=== PATIENT | female | born 1985 | race Two or more races ===

== ENCOUNTER 2020-08-02 14:31 | Inpatient (IN) | payer OTHER, SELFPAY ==
[2020-08-02 15:06] VITALS: BP 130/67; PULSE 103; RESP 18; TEMP 37.8; O2SAT 97
[2020-08-02 15:12] VITALS: BP 130/67; TEMP 37.8; BMI 28.0
--- NOTE | 2020-08-02 15:23 | CT_ITS ---
EXAMINATION: CT ABDOMEN AND PELVIS WITH CONTRAST CLINICAL INFORMATION: 34-year-old female patient with right lower quadrant abdominal pain. COMPARISON: CT of the abdomen and pelvis on 06/02/2020. ( uterus. Moderate constipation). Ultrasound the pelvis on 06/02/2020. (Normal ovaries). TECHNIQUE: Multidetector volumetric images were obtained from the superior aspect of the liver through the pubic symphysis following administration 85 mL of Omnipaque 350 intravenous contrast. Sagittal and coronal reformatted images were obtained on the technologist's workstation. Oral contrast: No This CT examination was performed using dose optimization techniques as appropriate, variously including the following: *Automated exposure control *Adjustment of mA and/or kV according to patient size (this includes techniques or standardized protocols for targeted exams where dose is matched to indication/reason for exam; i.e. 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 No obstruction is suspected. LUNG BASES: Mild dependent atelectasis of both lower lobes. LIVER, GALLBLADDER, AND BILIARY TREE: The liver is normal in size, shape, and attenuation. No focal hepatic lesion or biliary ductal dilatation is present. Mild periportal tracking is seen in the liver due to the hydration status of the patient. The common bile duct is normal in caliber. The gallbladder is unremarkable with no evidence of radiopaque gallstones, gallbladder wall thickening, or obvious pericholecystic inflammatory changes. PANCREAS: Unremarkable. SPLEEN: Unremarkable. ADRENAL GLANDS: Unremarkable. KIDNEYS AND URETERS: The kidneys are normal in size, shape, and attenuation. No hydronephrosis, hydroureter, or calculi seen. No perinephric stranding. BLADDER: Nearly empty and normal. GASTROINTESTINAL TRACT: The small and large bowel are unremarkable. As mentioned above, there is increased burden of formed stool throughout the colon. The appendix is unremarkable. ABDOMINAL WALL: No significant hernia is appreciated. LYMPH NODES: Small perinephric and mesenteric lymph nodes are present. VASCULAR: Unremarkable. PELVIC VISCERA: There is still residual mild global enlargement of the uterus which retained is normal shape. There is a significant change in the appearance of the adnexal regions. Both adnexa show the presence of abnormally dilated fluid-filled fallopian tubes larger on the right than left. This appearance is consistent with hydrosalpinx. On the left side, pyosalpinx is a possibility due to the suggestion of surrounding inflammatory reaction. Minimal fluid tracking is seen along the lower left pelvic sidewall. OSSEOUS STRUCTURES: Unremarkable. CT/CT abdomen pelvis w con IMPRESSION: Bilateral hydrosalpinx worse on the left than right. Pyosalpinx on the left is not excluded. Increased burden of formed stool throughout the colon.
[2020-08-02 15:44] LABS: Glucose Urine UA NEG (NEG); Leukocyte Esterase Urine NEG (NEG); Nitrite Urine NEG (NEG); Urine Blood NEG (NEG); Urine Ketones 40 MG/DL (NEG); Urine Protein NEG (NEG-TRACE)
[2020-08-02 15:50] LABS: Appearance Urine CLEAR; Color Urine YELLOW
[2020-08-02 15:52] LABS: UPreg QC Valid YES; Urine Pregnancy NEGATIVE (NEGATIVE)
[2020-08-02 15:57] LABS: Mucus Urine TRACE /LPF; RBC Urine 0-2 /HPF (0); Squamous Epithelial Cell Urine TRACE /LPF; WBC Urine 0 /HPF (0-4)
[2020-08-02 16:04] LABS: Amphetamine Screen Urine Not Detected (Not Detect); Barbiturates, Urine Not Detected (Not Detect); Benzodiazepines Screen Urine Not Detected (Not Detect); Cannabinoid Screen Urine POSITIVE (Not Detect); Cocaine Screen Urine POSITIVE (Not Detect); Opiate Screen Urine POSITIVE (Not Detect); Phencyclidine Screen Urine Not Detected (Not Detect)
--- NOTE | 2020-08-02 16:15 | PC.NURSE ---
iv inserted by ultrasound by [facility] computer support analyst. labs obtained. da mc aware.
--- NOTE | 2020-08-02 16:16 | ED.ABDPAIN ---
HPI - Abdominal Pain General Chief Complaint: Abdominal Pain Stated Complaint: ABD PAIN Time Seen by Provider: 08/02/20 15:21 Source: patient Mode of arrival: ambulatory Limitations: no limitations History of Present Illness HPI narrative: This is a 34-year-old female with past medical history of IV drug use, depression who is a daily smoker states she last used IV drugs preferred heroin a week ago still smokes daily presenting ambulatory with complaint of right lower quadrant pain for the past 4 days. She denies any other symptoms. No nausea or vomiting. No symptoms. Pain has been described as gradually but progressively getting worse and sharp like. Pain does not radiate. In review of the EMR on June 05 patient was admitted for abdominal pain with sepsis and infection due to gonorrhea. She denies any symptoms to me. MD elicited complaint: abdominal pain Pertinent past history: none Onset (ago): day(s) Pain Consistency: constant Location: RLQ Quality: stabbing and aching Radiation: none Migration to: no migration Exacerbating factors: nothing Relieving factors: nothing Related Data Home Medications Medication Instructions Recorded Confirmed No Known Home Meds 08/02/20 08/02/20 Allergies Allergy/AdvReac Type Severity Reaction Status Date / Time trazodone [TRAZODONE] AdvReac Severe FACE Verified 08/02/20 15:28 SWELLING, VOMITING Review of Systems Review of Systems Constitutional: No Weight loss, No Fever, + Chills, No Night Sweats, No Fatigue, No Malaise ENT/Mouth: No Hearing loss, No Ear Pain, No Nasal Congestion, No Sinus Pain, No Hoarseness, No sore throat, No Rhinorrhea, No Swallowing Difficulty Eyes: No Eye Pain, No Swelling, No Redness, No Foreign Body, No Discharge, No Vision Changes Cardiovascular: No Chest Pain, No SOB, No Dyspnea on Exertion, No Orthopnea, No Edema, No Palpitations Respiratory: No Cough, No Sputum, No Wheezing, No Smoke Exposure, No Dyspnea Gastrointestinal: No Nausea, No Vomiting, No Diarrhea, No Constipation, + abdominal Pain, No Hematochezia, No Melena Genitourinary: no irregular bleeding, No Dysuria, No Urinary Frequency, No Hematuria, No Urinary Incontinence, No Urgency, No Flank Pain, No Urinary Flow Musculoskeletal: No joint pain, No Myalgias, No Joint Swelling Skin: No Skin Lesions, No rash Neuro: No Weakness, No Numbness, No Paresthesias, No Loss of Consciousness, No Dizziness, No Headache Psych: No Anxiety/Panic, No Depression, No SI/HI/AH/VH, No Social Issues Heme/Lymph: No Bruising, No Bleeding,No Lymphadenopathy Endocrine: No Polyuria, No Polydipsia, No Temperature Intolerance Yes all other systems are reviewed and are negative Physical Exam Vital Signs: Vital Signs: Last Vital Signs Temp 98.5 F 08/02/20 19:32 Pulse 73 08/02/20 19:32 Resp 18 08/02/20 19:32 BP 128/81 08/02/20 19:32 Pulse Ox 99 08/02/20 19:32 Body Mass Index 28.0 Reviewed Const: Other: Appears in pain General: cooperative and ill appearing Nutritional Appearance: average body habitus Orientation/consciousness: patient oriented x3 HENMT: Head: Yes normal to inspection Ears: hearing grossly normal bilaterally Eyes: General: appearance normal, both eyes and all related structures Visual Galarza: normal visual galarza by confrontation Neck: Neck: Yes normal visual inspection and No tender Thyroid: Thyroid normal Chest: Chest palpation & inspection: normal inspection of the chest Resp: Effort & Inspection: normal respiratory effort Cardio: Jugular venous distension: no JVD GI: Inspection: Yes normal to inspection Percussion: Yes normal to percussion Auscultation: normal bowel sounds : Other: RN Andrew present for production engineer track General: Yes no CVA tenderness External Female Exam: normal external appearance Speculum Exam - Cervix: Cervical tenderness present (Positive cervical motion tenderness.) Bimanual exam- vagina & uterus: Cervical tenderness present (Positive cervical motion tenderness.) Back/Spine/Pelvis: Back: no CVA tenderness Skin: General skin exam: no rashes or lesions noted Neuro: General: patient oriented x3 Extrem: General: Yes normal to inspection Course Reevaluation(s) Reevaluation #1: Very difficult stick to RNs tried without success I placed a ultrasound-guided IV in the right AC and labs were obtained. Patient is given fluids and Tylenol. Going for CT scan. Given the abdominal pain and the fever will go ahead and empirically cover for intra-abdominal pathology. Reevaluation #2: Meets sepsis criteria with elevated heart rate now, elevated WBC count and suspected infection. Patient does not have any evidence of severe sepsis. Given Zosyn already. CT is pending. Reevaluation #3: CT of the abdomen pelvis with IV contrast shows Bilateral hydrosalpinx worse on the left than right. Pyosalpinx on the left is not excluded. Case discussed with Dr. Elizabeth ROSENTHAL on-call, will come in to evaluate the patient and admit to service. Consultations Consultation #1: GALO Johnson MDM - Abdominal Pain Lab Data Result diagrams: 08/02/20 16:22 08/02/20 16:22 Labs: Lab Results 08/02/20 08/02/20 08/02/20 Range/Units 15:36 15:36 16:22 WBC 19.6 H (4.8-10.8) X10*3/uL RBC 4.97 (4.20-5.50) X10*6/uL Hgb 14.7 (12.0-16.0) g/dl Hct 45.1 (37-47) % MCV 90.7 (80-98) fL MCH 29.6 (27.0-33.0) pg MCHC 32.6 (31.0-35.0) g/dl RDW 15.0 (11.0-16.0) % Plt Count 418 H (160-400) X10*3/uL MPV 9.9 (9.4-12.3) fL Immature Gran % (Auto) 1.1 H (0.0-0.4) % Neut % (Auto) 84.0 H (45-73) % Lymph % (Auto) 8.5 L (20-40) % Hand % (Auto) 5.1 (2-11) % Eos % (Auto) 1.1 (0-4) % Baso % (Auto) 0.2 (0-2) % Lymph # (Auto) 1.7 (1.2-4.9) X10*3/uL Hand # (Auto) 1.0 (0.1-1.2) X10*3/uL Eos # (Auto) 0.2 (0.0-0.4) X10*3/uL Baso # (Auto) 0.0 (0.0-0.2) X10*3/uL Abs Immat Gran (auto) 0.22 H (0.00-0.03) X10*3/uL Absolute Neuts (auto) 16.4 H (2.0-8.3) X10*3/uL Absolute Nucleated RBC 0.000 (0.0-0.012) X10*3/uL Nucleated RBC % (auto) 0.0 (0.0-0.2) /100WBC Sodium (135-145) mmol/L Potassium (3.3-5.1) mmol/l Chloride (96-108) mmol/L Carbon Dioxide (22-29) mmol/L Anion Gap (12-20) BUN (9-16) mg/dL Creatinine (0.5-1.4) mg/dL Estim Creat Clear Calc Estimated GFR Random Glucose (60-115) mg/dL Lactic Acid (0.5-2.0) mmol/L Calcium (8.4-10.2) mg/dL Total Bilirubin (0.0-1.0) mg/dL AST (5-31) U/L ALT (0-31) U/L Alkaline Phosphatase (39-117) U/L Total Protein (6.5-8.0) g/dL Albumin (3.5-5.0) g/dL Urine Color YELLOW Urine Appearance CLEAR Urine pH 8.0 (5.0-8.0) Ur Specific [place] 1.020 (1.005-1.025) Urine Protein NEG (NEG-TRACE) MG/DL Urine Glucose (UA) NEG (NEG) MG/DL Urine Ketones 40 (NEG) MG/DL Urine Blood NEG (NEG) Urine Nitrite NEG (NEG) Ur Leukocyte Esterase NEG (NEG) Urine RBC 0-2 (0) /HPF Urine WBC 0 (0-4) /HPF Ur Squamous Epith Cells TRACE /LPF Urine Bacteria NONE /LPF Urine Mucus TRACE /LPF Urine Test NEGATIVE (NEGATIVE) Urine Opiates Screen POSITIVE H (Not Detect) Ur Barbiturates Screen Not Detected (Not Detect) Ur Phencyclidine Scrn Not Detected (Not Detect) Ur Amphetamines Screen Not Detected (Not Detect) U Benzodiazepines Scrn Not Detected (Not Detect) Urine Cocaine Screen POSITIVE H (Not Detect) U Marijuana (THC) Screen POSITIVE H (Not Detect) Coronavirus (PCR) (Negative) Influenza Type A (PCR) (Negative) Influenza Type B (PCR) (Negative) RSV RNA Qual (PCR) (Negative) 11/08/02/20 08/02/20 Range/Units 16:22 16:52 17:48 WBC (4.8-10.8) X10*3/uL RBC (4.20-5.50) X10*6/uL Hgb (12.0-16.0) g/dl Hct (37-47) % MCV (80-98) fL MCH (27.0-33.0) pg MCHC (31.0-35.0) g/dl RDW (11.0-16.0) % Plt Count (160-400) X10*3/uL MPV (9.4-12.3) fL Immature Gran % (Auto) (0.0-0.4) % Neut % (Auto) (45-73) % Lymph % (Auto) (20-40) % Hand % (Auto) (2-11) % Eos % (Auto) (0-4) % Baso % (Auto) (0-2) % Lymph # (Auto) (1.2-4.9) X10*3/uL Hand # (Auto) (0.1-1.2) X10*3/uL Eos # (Auto) (0.0-0.4) X10*3/uL Baso # (Auto) (0.0-0.2) X10*3/uL Abs Immat Gran (auto) (0.00-0.03) X10*3/uL Absolute Neuts (auto) (2.0-8.3) X10*3/uL Absolute Nucleated RBC (0.0-0.012) X10*3/uL Nucleated RBC % (auto) (0.0-0.2) /100WBC Sodium 136 (135-145) mmol/L Potassium 4.7 (3.3-5.1) mmol/l Chloride 102 (96-108) mmol/L Carbon Dioxide 21 L (22-29) mmol/L Anion Gap 18 (12-20) BUN 7 L (9-16) mg/dL Creatinine 0.69 (0.5-1.4) mg/dL Estim Creat Clear Calc 98.6 Estimated GFR > 60 Random Glucose 74 (60-115) mg/dL Lactic Acid 0.8 (0.5-2.0) mmol/L Calcium 8.7 (8.4-10.2) mg/dL Total Bilirubin 0.6 (0.0-1.0) mg/dL AST 36 H (5-31) U/L ALT 44 H (0-31) U/L Alkaline Phosphatase 146 H (39-117) U/L Total Protein 8.1 H (6.5-8.0) g/dL Albumin 3.7 (3.5-5.0) g/dL Urine Color Urine Appearance Urine pH (5.0-8.0) Ur Specific [place] (1.005-1.025) Urine Protein (NEG-TRACE) MG/DL Urine Glucose (UA) (NEG) MG/DL Urine Ketones (NEG) MG/DL Urine Blood (NEG) Urine Nitrite (NEG) Ur Leukocyte Esterase (NEG) Urine RBC (0) /HPF Urine WBC (0-4) /HPF Ur Squamous Epith Cells /LPF Urine Bacteria /LPF Urine Mucus /LPF Urine Test (NEGATIVE) Urine Opiates Screen (Not Detect) Ur Barbiturates Screen (Not Detect) Ur Phencyclidine Scrn (Not Detect) Ur Amphetamines Screen (Not Detect) U Benzodiazepines Scrn (Not Detect) Urine Cocaine Screen (Not Detect) U Marijuana (THC) Screen (Not Detect) Coronavirus (PCR) NEGATIVE (Negative) Influenza Type A (PCR) NEGATIVE (Negative) Influenza Type B (PCR) NEGATIVE (Negative) RSV RNA Qual (PCR) NEGATIVE (Negative) Imaging Data CT scan - abdomen: Radiologist's impression: [place] [id number] CT Scan Report Signed Patient: Fidel Gómez [facility]#: [id number] : 1985Acct:[id number] Age/Sex: 34 / FADM Date: 08/02/20 Loc: HO.ED Attending Dr: Ordering Physician: Joss Link NP Date of Service: 08/02/20 Procedure(s): CT abdomen pelvis w con Accession Number(s): [id number] cc: Joss Link PANTOGRAPH TRANSFERRER~ EXAMINATION: CT ABDOMEN AND PELVIS WITH CONTRAST CLINICAL INFORMATION: 34-year-old female patient with right lower quadrant abdominal pain. COMPARISON: CT of the abdomen and pelvis on 06/02/2020. ( uterus. Moderate constipation). Ultrasound the pelvis on 06/02/2020. (Normal ovaries). TECHNIQUE: Multidetector volumetric images were obtained from the superior aspect of the liver through the pubic symphysis following administration 85 mL of Omnipaque 350 intravenous contrast. Sagittal and coronal reformatted images were obtained on the technologist's workstation. Oral contrast: No This CT examination was performed using dose optimization techniques as appropriate, variously including the following: *Automated exposure control *Adjustment of mA and/or kV according to patient size (this includes techniques or standardized protocols for targeted exams where dose is matched to indication/reason for exam; i.e. 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 No obstruction is suspected. LUNG BASES: Mild dependent atelectasis of both lower lobes. LIVER, GALLBLADDER, AND BILIARY TREE: The liver is normal in size, shape, and attenuation. No focal hepatic lesion or biliary ductal dilatation is present. Mild periportal tracking is seen in the liver due to the hydration status of the patient. The common bile duct is normal in caliber. The gallbladder is unremarkable with no evidence of radiopaque gallstones, gallbladder wall thickening, or obvious pericholecystic inflammatory changes. PANCREAS: Unremarkable. SPLEEN: Unremarkable. ADRENAL GLANDS: Unremarkable. KIDNEYS AND URETERS: The kidneys are normal in size, shape, and attenuation. No hydronephrosis, hydroureter, or calculi seen. No perinephric stranding. BLADDER: Nearly empty and normal. GASTROINTESTINAL TRACT: The small and large bowel are unremarkable. As mentioned above, there is increased burden of formed stool throughout the colon. The appendix is unremarkable. ABDOMINAL WALL: No significant hernia is appreciated. LYMPH NODES: Small perinephric and mesenteric lymph nodes are present. VASCULAR: Unremarkable. PELVIC VISCERA: There is still residual mild global enlargement of the uterus which retained is normal shape. There is a significant change in the appearance of the adnexal regions. Both adnexa show the presence of abnormally dilated fluid-filled fallopian tubes larger on the right than left. This appearance is consistent with hydrosalpinx. On the left side, pyosalpinx is a possibility due to the suggestion of surrounding inflammatory reaction. Minimal fluid tracking is seen along the lower left pelvic sidewall. OSSEOUS STRUCTURES: Unremarkable. CT/CT abdomen pelvis w con IMPRESSION: Bilateral hydrosalpinx worse on the left than right. Pyosalpinx on the left is not excluded. Increased burden of formed stool throughout the colon. Dictated By:JANNY KAUR MD Signed By:<Electronically signed by JANNY KAUR MD in OV>08/02/20 1814 DD/ 1523 TD/TT: Hand Cell Tuber: Discharge Plan Discharge Clinical Impression: Pelvic inflammatory disease, acute, Tubo-ovarian abscess Patient Disposition: Admitted As Inpatient Prescriptions: No Action No Known Home Meds RF: 0 PMFSH Past Medical History Medical History Depression Drug abuse IV drug user Surgical History History of Social History Social History Alcohol intake: never Smoking Status: Current every day smoker Use of substances other than those prescribed or required for medical reasons: Yes Substance Use Type: Marijuana Substance Use Frequency: Occasionally Last Used Substance: Days (ago) Any prior treatment program specific to substance use: No Advance Directives: No Advance Directives Information Provided: Yes
[2020-08-02] MEDS: Acetaminophen 325 MG TABLET 975 MG PO (16:25)
[2020-08-02] MEDS: 0.9 % Sodium Chloride 1,000 ML 1000 ML IV (16:26)
[2020-08-02 16:27] LABS: MANUAL DIFF FLAG NO
[2020-08-02 16:28] LABS: Basophils Percent Auto 0.2 % (0-2); Eosinophils Absolute Auto 0.2 X10*3/uL (0.0-0.4); Eosinophils Percent Auto 1.1 % (0-4); Hematocrit 45.1 % (37-47); Hemoglobin 14.7 g/dl (12.0-16.0); Imm Gran Abs Auto 0.22 X10*3/uL (0.00-0.03); Imm Gran Pct Auto 1.1 % (0.0-0.4); Lymphocytes Absolute Auto 1.7 X10*3/uL (1.2-4.9); Lymphocytes Percent Auto 8.5 % (20-40); Mean Corpuscular HGB Conc 32.6 g/dl (31.0-35.0); Mean Corpuscular Hemoglobin 29.6 pg (27.0-33.0); Mean Corpuscular Volume 90.7 fL (80-98); Mean Platelet Volume 9.9 fL (9.4-12.3); Monocytes Percent Auto 5.1 % (2-11); Neutrophils Absolute Auto 16.4 X10*3/uL (2.0-8.3); Platelet Count 418 X10*3/uL (160-400); Red Blood Count 4.97 X10*6/uL (4.20-5.50); White Blood Count 19.6 X10*3/uL (4.8-10.8)
--- NOTE | 2020-08-02 16:39 | XR_ITS ---
EXAMINATION: XR chest 1V CLINICAL INFORMATION: Fever COMPARISON: Prior chest x-ray 06/03/2020 TECHNIQUE: XR chest 1V Tubes and lines: None Lungs and Yuliana: Prior infiltrate atelectasis at right lung base clear. Pleura: Normal. Costophrenic angles are sharp. No pneumothorax. Heart and mediastinum: The mediastinum is within normal limits.. Bones: Skeletal structures included are normal for patient's age. XR/XR chest 1V IMPRESSION: Prior infiltrate/atelectasis at right lung base seen on the x-ray of 06/03/2020, has cleared. No pleural effusion.
[2020-08-02 16:58] LABS: Alanine Aminotransferase 44 U/L (0-31); Albumin Level 3.7 g/dL (3.5-5.0); Alkaline Phosphatase 146 U/L (39-117); Anion Gap 18 (12-20); Aspartate Amino Transferase 36 U/L (5-31); Bilirubin Total 0.6 mg/dL (0.0-1.0); Blood Urea Nitrogen 7 mg/dL (9-16); Calcium 8.7 mg/dL (8.4-10.2); Carbon Dioxide 21 mmol/L (22-29); Chloride 102 mmol/L (96-108); Creatinine Clr Calc Pharmacy 98.6; Estimated Glomerular Filt Rate > 60; Glucose Random 74 mg/dL (60-115); Potassium 4.7 mmol/l (3.3-5.1); Sodium 136 mmol/L (135-145); Total Protein 8.1 g/dL (6.5-8.0)
[2020-08-02 17:17] LABS: Lactic Acid 0.8 mmol/L (0.5-2.0)
[2020-08-02] MEDS: iohexoL 350 MG/ML 100 ML INFUS..BTL IV (17:30)
[2020-08-02] MEDS: Piperacillin Sodium/Tazobactam 4.5 GM in 0.9 % Sodium Chloride 100 ML IV (17:38)
[2020-08-02 18:35] LABS: Influenza A PCR NEGATIVE (Negative); Influenza B PCR NEGATIVE (Negative); Resp Syncy Virus RNA Qual PCR NEGATIVE (Negative); SARS COV2 PCR INHOUSE NEGATIVE (Negative)
[2020-08-02] MEDS: metroNIDAZOLE/NS 500 MG/100 ML PIGGYBACK 100 MG IV (19:29)
[2020-08-02 19:32] VITALS: BP 128/81; PULSE 73; RESP 18; TEMP 36.9; O2SAT 99
--- NOTE | 2020-08-02 19:33 | PC.NURSE ---
pt medicated per order, vss, pt currently watching tv, will continue to monitor.
--- NOTE | 2020-08-02 19:45 | PC.NURSE ---
patient a&ox3, iv antibiotics running per order, pt requesting food, pt currently watching tv, will ask provider if patient can eat now, vss, will continue to monitor.
--- NOTE | 2020-08-02 20:19 | PM.GYNCN ---
SENIOR PROJECT MANAGER ENGINEERING - CN: HPI Data of Consult Consult date: 08/02/20 Primary Care Provider: Ozzy Ellison MD Consult Narrative Narrative: Fidel Gómez is a 34 year old female with four day history of RLQ pain. She reports that the pain was initially tolerable, but over the last four days, increased in intensity until she it was so bad she felt like she could not walk. She reports that when she is lying down, the pain is discomfort; however, when she is walking, she report sharp pains in the RLQ. The pain is better with lying down and worst with walking. She has been drinking advil for the pain but denies getting any relief. She reports the onset of fevers after the second day of pain. On the second or third day, she also started to notice a brown vaginal discharge. She denies any associated odor. She denies having had any nausea or vomiting; she reports she has not had much of an appetite. She reports the pain is sometimes strong enough to take her breath away; otherwise, she denies any shortness of breath or difficulty breathing. She is sexually active with one male partner and reports consistent condom use every time. cc:: CC: Meds Allergies Allergy/AdvReac Type Severity Reaction Status Date / Time trazodone [TRAZODONE] AdvReac Severe FACE Verified 08/02/20 15:28 SWELLING, VOMITING Home Medications Medication Instructions Recorded Confirmed Type No Known Home Meds 08/02/20 08/02/20 History SENIOR PROJECT MANAGER ENGINEERING - Results Labs CBC & Chem 7: 08/02/20 16:22 08/02/20 16:22 Labs: Short CBC 08/02/20 Range/Units 16:22 WBC 19.6 H (4.8-10.8) X10*3/uL Hgb 14.7 (12.0-16.0) g/dl Hct 45.1 (37-47) % Plt Count 418 H (160-400) X10*3/uL BMP 08/02/20 16:22 Sodium 136 Potassium 4.7 Chloride 102 Carbon Dioxide 21 L BUN 7 L Creatinine 0.69 Calcium 8.7 Liver Function 08/02/20 Range/Units 16:22 Total Bilirubin 0.6 (0.0-1.0) mg/dL AST 36 H (5-31) U/L ALT 44 H (0-31) U/L Alkaline Phosphatase 146 H (39-117) U/L Albumin 3.7 (3.5-5.0) g/dL Urine 08/02/20 Range/Units 15:36 Urine Color YELLOW Urine Appearance CLEAR Urine pH 8.0 (5.0-8.0) Ur Specific [place] 1.020 (1.005-1.025) Urine Protein NEG (NEG-TRACE) MG/DL Urine Glucose (UA) NEG (NEG) MG/DL Urine Test NEGATIVE (NEGATIVE) Assessment and Plan (1) Pelvic inflammatory disease, acute: Status: Acute Abdominal CT scan demonstrates bilateral hydrosalpinx, R > L, consistent with her pain. Most recent pelvic US from 06/02/20 did not demonstrate any adnexal abnormalities; the change in imaging, her fever on admission, and CMT on bimanual exam by QA AUTOMATION DEVELOPER Joss Link are consistent with acute PID complicated by tubo-ovarian abscess. Recommended treatment for this is hospital admission for at least 24hrs of IV antibiotics. IV Cefotetan 2G IV Q12H and IV doxycycline 100mg IV Q12H. I discussed with the patient that she will be NPO until I see that her pain and blood work are improved, with plan to advance to regular diet in the morning if her pain is improved. If no improvement or worsening of symptoms, will consider IR consult for possible drainage. I will likely order pelvic US tomorrow; future imaging for follow up will be with US so this will be a better comparison. (2) Tubo-ovarian abscess: Status: Acute See above
--- NOTE | 2020-08-02 21:17 | PC.NURSE ---
[facility] does not have the cefotan, pharmacy will bring to ed.
[2020-08-02 21:50] VITALS: BP 121/82; PULSE 89; RESP 18; TEMP 37.2; O2SAT 98
[2020-08-02] MEDS: Lactated Ringers 1,000 ML 125 ML IVCONT (21:57)
--- NOTE | 2020-08-02 21:58 | PC.NURSE ---
patient a&ox3, pt ivf running per order, iv antibiotic hung per order, will continue to monitor.
--- NOTE | 2020-08-02 22:23 | PC.NURSE ---
pt refusing ct ng by pcr, pt stated she would do it later that she was not doing it now.
--- NOTE | 2020-08-02 22:25 | PC.NURSE ---
called floor to give report-no answer at this time
--- NOTE | 2020-08-02 22:41 | PC.NURSE ---
report called to floor, will hang last iv antibiotic and have tech transport patient. floor nurse aware that ct ng pcr was refused by patient- will send swab to the floor with the patient
[2020-08-02] MEDS: Doxycycline Hyclate 100 MG in 0.9 % Sodium Chloride 250 ML 166.67 MG IV (22:45)
--- NOTE | 2020-08-02 22:48 | PC.NURSE ---
iv antibiotics hung per order
[2020-08-03] MEDS: Acetaminophen 325 MG TABLET 650 MG PO ×2 (00:16→11:28)
[2020-08-03] MEDS: oxyCODONE HCl Immed Release 5 MG TABLET PO ×2 (00:17→07:51)
[2020-08-03 00:18] VITALS: BP 127/78; PULSE 84; RESP 18; TEMP 36.7; O2SAT 97
[2020-08-03 03:04] VITALS: BP 131/68; PULSE 81; RESP 18; TEMP 36.5; O2SAT 98
[2020-08-03] MEDS: Lactated Ringers 1,000 ML 125 ML IVCONT (05:36)
[2020-08-03] MEDS: Doxycycline Hyclate 100 MG in 0.9 % Sodium Chloride 250 ML 166.67 MG IV (07:45)
[2020-08-03 08:00] VITALS: BP 109/57; PULSE 73; RESP 17; TEMP 36.9; O2SAT 99
--- NOTE | 2020-08-03 08:39 | P.PNOB_ITS ---
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 Gómez's room this morning, she appeared to be sleeping comfortably and did not respond to my calling her name multiple times until I reached out and gentle shook her arm while calling her name. Her d emeanor immediately changed as she woke up; she began moaning and appeared to be in significant pain. She told me that her pain was unchanged this morning. Compared to when I saw her in the ER yesterday evening, she told me after being brought upstairs, her pain started getting worse again. Her pain is consistent this morning with her pain that brought her into the ER (although she previously told me that when lying down, her pain was only uncomfortable. She reports nausea but denies vomiting. She states that she has no appetite. 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 Vitals Vital signs: Temp Pulse Resp BP Pulse Ox 98.5 F 73 17 109/57 L 99 08/03/20 08:00 08/03/20 08:00 08/03/20 08:00 08/03/20 08:00 08/03/20 08:00 Body Mass Index 28.0 Constitutional General Appearance: Overweight Abdomen Auscultation/Inspection/Palpation: Soft and Tenderness (tenderness in the right upper quadrant, and in the lower quadrants bilaterally and suprapubic area ) POWER PLANT ASSISTANT - Prog Note: Results Labs CBC & Chem 7: 08/02/20 16:22 08/02/20 16:22 Labs: Laboratory Results - last 24 hr 08/02/20 08/02/20 08/02/20 15:36 15:36 16:22 WBC 19.6 H RBC 4.97 Hgb 14.7 Hct 45.1 MCV 90.7 MCH 29.6 MCHC 32.6 RDW 15.0 Plt Count 418 H MPV 9.9 Immature Gran % (Auto) 1.1 H Neut % (Auto) 84.0 H Lymph % (Auto) 8.5 L [place] % (Auto) 5.1 Eos % (Auto) 1.1 Baso % (Auto) 0.2 Lymph # (Auto) 1.7 [place] # (Auto) 1.0 Eos # (Auto) 0.2 Baso # (Auto) 0.0 Abs Immat Gran (auto) 0.22 H Absolute Neuts (auto) 16.4 H Absolute Nucleated RBC 0.000 Nucleated RBC % (auto) 0.0 Sodium Potassium Chloride Carbon Dioxide Anion Gap BUN Creatinine Estim Creat Clear Calc Estimated GFR Random Glucose Lactic Acid Calcium Total Bilirubin AST ALT Alkaline Phosphatase Total Protein Albumin Urine Color YELLOW Urine Appearance CLEAR Urine pH 8.0 Ur Specific [place] 1.020 Urine Protein NEG Urine Glucose (UA) NEG Urine Ketones 40 Urine Blood NEG Urine Nitrite NEG Ur Leukocyte Esterase NEG Urine RBC 0-2 Urine WBC 0 Ur Squamous Epith Cells TRACE Urine Bacteria NONE Urine Mucus TRACE Urine Test NEGATIVE Urine Opiates Screen POSITIVE H Ur Barbiturates Screen Not Detected Ur Phencyclidine Scrn Not Detected Ur Amphetamines Screen Not Detected U Benzodiazepines Scrn Not Detected Urine Cocaine Screen POSITIVE H U Marijuana (THC) Screen POSITIVE H Coronavirus (PCR) Influenza Type A (PCR) Influenza Type B (PCR) RSV RNA Qual (PCR) 08/02/20 08/02/20 08/02/20 16:22 16:52 17:48 WBC RBC Hgb Hct MCV MCH MCHC RDW Plt Count MPV Immature Gran % (Auto) Neut % (Auto) Lymph % (Auto) [place] % (Auto) Eos % (Auto) Baso % (Auto) Lymph # (Auto) [place] # (Auto) Eos # (Auto) Baso # (Auto) Abs Immat Gran (auto) Absolute Neuts (auto) Absolute Nucleated RBC Nucleated RBC % (auto) Sodium 136 Potassium 4.7 Chloride 102 Carbon Dioxide 21 L Anion Gap 18 BUN 7 L Creatinine 0.69 Estim Creat Clear Calc 98.6 Estimated GFR > 60 Random Glucose 74 Lactic Acid 0.8 Calcium 8.7 Total Bilirubin 0.6 AST 36 H ALT 44 H Alkaline Phosphatase 146 H Total Protein 8.1 H Albumin 3.7 Urine Color Urine Appearance Urine pH Ur Specific [place] Urine Protein Urine Glucose (UA) Urine Ketones Urine Blood Urine Nitrite Ur Leukocyte Esterase Urine RBC Urine WBC Ur Squamous Epith Cells Urine Bacteria Urine Mucus Urine Test Urine Opiates Screen Ur Barbiturates Screen Ur Phencyclidine Scrn Ur Amphetamines Screen U Benzodiazepines Scrn Urine Cocaine Screen U Marijuana (THC) Screen Coronavirus (PCR) NEGATIVE Influenza Type A (PCR) NEGATIVE Influenza Type B (PCR) NEGATIVE RSV RNA Qual (PCR) NEGATIVE 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 Pelvic US today. Repeat CBC. Will maintain NPO status for now as her pain is unimproved. I will make ibuprofen and tylenol scheduled rather than PRN. (2) Tubo-ovarian abscess: Status: Acute Time Spent With Patient Time: Total time spent is greater than 50% in coordination of care (as documented) at patient's floor/unit and/or counseling patient: Time with patient: 15 - 24 minutes
[2020-08-03] MEDS: Ibuprofen 600 MG TABLET PO (09:52)
[2020-08-03 11:22] VITALS: BP 112/64; PULSE 73; RESP 18; TEMP 36.4; O2SAT 99
[2020-08-03] MEDS: oxyCODONE HCl Immed Release 5 MG TABLET 10 MG PO (11:28)
[2020-08-03] MEDS: cefoTEtan disodium 2 GM in 0.9 % Sodium Chloride 50 ML IV (12:44)
--- NOTE | 2020-08-03 14:32 | PC.NURSE ---
Addendum entered by Padmaja Collins RN 08/03/20 14:51: IV REMOVED PRIOR TO PATIENT LEAVING AMA Original Note: Patient left AMA. Notified Dr. Johnson. Patient educated on the risks of leaving. Patient continued to leave AMA. Patient refused to sign AMA paperwork.
--- NOTE | 2020-08-03 15:45 | MHC.CM.PN ---
PT LEFT AMA PRIOR TO BEING SEEN BY CM
--- NOTE | 2020-10-02 13:12 | P.DS_ITS ---
DS: Providers Provider Date of Service: 10/02/20 Date of admission: 08/02/20 20:16 Primary care physician: Ozzy Ellison MD DS: Diagnosis Discharge Diagnosis (1) Pelvic inflammatory disease, acute: Status: Acute (2) Tubo-ovarian abscess: Status: Acute DS: Medications Discharge Medications Home Medications: Home Medications Medication Instructions Recorded Confirmed No Known Home Meds 08/02/20 08/02/20 DS: Summary Hospital Course Hospital Course: This patient was admitted overnight for IV antibiotics, according to ACOG guidelines for management of PID with tubo-ovarian abscess. On the morning of HD#2, we reviewed the plan of antibiotics for at least 24-48 hours prior to possible discharge home on a two week course of oral antibiotics. After I left the hospital, the patient elected to leave AMA as she was unable to have any visitors in the hospital due to Covid visitor restrictions. Status at Discharge Functional status at discharge: independent ambulation Time Spent with Patient Time attestation: Total time spent providing and/or coordinating discharge services: Discharge coordination time: Less than 30 minutes Physical Exam Vital Signs: Vital Signs: Last Vital Signs Temp 97.5 F 08/03/20 11:22 Pulse 73 08/03/20 11:22 Resp 18 08/03/20 11:22 BP 112/64 08/03/20 11:22 Pulse Ox 99 08/03/20 11:22 Body Mass Index 28.0 Const: General: alert and awake Nutritional Appearance: overweight HENMT: Head: Yes normocephalic and Yes atraumatic Resp: Effort & Inspection: normal respiratory effort and able to speak in complete sentences DS: Data Data Completed and Pending Labs on day of discharge: Laboratory Tests 08/02/20 08/02/20 08/02/20 15:36 15:36 16:22 WBC 19.6 H RBC 4.97 Hgb 14.7 Hct 45.1 MCV 90.7 MCH 29.6 MCHC 32.6 RDW 15.0 Plt Count 418 H MPV 9.9 Immature Gran % (Auto) 1.1 H Neut % (Auto) 84.0 H Lymph % (Auto) 8.5 L [place] % (Auto) 5.1 Eos % (Auto) 1.1 Baso % (Auto) 0.2 Lymph # (Auto) 1.7 [place] # (Auto) 1.0 Eos # (Auto) 0.2 Baso # (Auto) 0.0 Abs Immat Gran (auto) 0.22 H Absolute Neuts (auto) 16.4 H Absolute Nucleated RBC 0.000 Nucleated RBC % (auto) 0.0 Sodium Potassium Chloride Carbon Dioxide Anion Gap BUN Creatinine Estim Creat Clear Calc Estimated GFR Random Glucose Lactic Acid Calcium Total Bilirubin AST ALT Alkaline Phosphatase Total Protein Albumin Urine Color YELLOW Urine Appearance CLEAR Urine pH 8.0 Ur Specific [place] 1.020 Urine Protein NEG Urine Glucose (UA) NEG Urine Ketones 40 Urine Blood NEG Urine Nitrite NEG Ur Leukocyte Esterase NEG Urine RBC 0-2 Urine WBC 0 Ur Squamous Epith Cells TRACE Urine Bacteria NONE Urine Mucus TRACE Urine Test NEGATIVE Urine Opiates Screen POSITIVE H Ur Barbiturates Screen Not Detected Ur Phencyclidine Scrn Not Detected Ur Amphetamines Screen Not Detected U Benzodiazepines Scrn Not Detected Urine Cocaine Screen POSITIVE H U Marijuana (THC) Screen POSITIVE H Coronavirus (PCR) Influenza Type A (PCR) Influenza Type B (PCR) RSV RNA Qual (PCR) 08/02/20 08/02/20 08/02/20 16:22 16:52 17:48 WBC RBC Hgb Hct MCV MCH MCHC RDW Plt Count MPV Immature Gran % (Auto) Neut % (Auto) Lymph % (Auto) [place] % (Auto) Eos % (Auto) Baso % (Auto) Lymph # (Auto) [place] # (Auto) Eos # (Auto) Baso # (Auto) Abs Immat Gran (auto) Absolute Neuts (auto) Absolute Nucleated RBC Nucleated RBC % (auto) Sodium 136 Potassium 4.7 Chloride 102 Carbon Dioxide 21 L Anion Gap 18 BUN 7 L Creatinine 0.69 Estim Creat Clear Calc 98.6 Estimated GFR > 60 Random Glucose 74 Lactic Acid 0.8 Calcium 8.7 Total Bilirubin 0.6 AST 36 H ALT 44 H Alkaline Phosphatase 146 H Total Protein 8.1 H Albumin 3.7 Urine Color Urine Appearance Urine pH Ur Specific [place] Urine Protein Urine Glucose (UA) Urine Ketones Urine Blood Urine Nitrite Ur Leukocyte Esterase Urine RBC Urine WBC Ur Squamous Epith Cells Urine Bacteria Urine Mucus Urine Test Urine Opiates Screen Ur Barbiturates Screen Ur Phencyclidine Scrn Ur Amphetamines Screen U Benzodiazepines Scrn Urine Cocaine Screen U Marijuana (THC) Screen Coronavirus (PCR) NEGATIVE Influenza Type A (PCR) NEGATIVE Influenza Type B (PCR) NEGATIVE RSV RNA Qual (PCR) NEGATIVE Discharge Plan Discharge Patient Disposition: Left Against Medical Advice Referrals: Ozzy Ellison MD [Primary Care Provider] - Discharge Medications: New doxycycline hyclate 100 mg capsule 100 mg PO BID 14 Days Qty: 28 RF: 0 metronidazole 500 mg tablet 500 mg PO BID 14 Days Qty: 28 RF: 0 No Action No Known Home Meds RF: 0 Discharge Orders: Discharge Order (Routine); Ordered 10/02/20 Ordered By: Kavya Johnson Discharge Date/Time: 08/03/20 14:30 Care Plan Goals: . Health Concerns: . Plan of Treatment: Two week course of oral antibiotics.
== END 2020-08-03 14:30 | disposition left against medical advice (07) | DRG 531 ==
LOC: HO.ED 20:56 → HO.S3 21:44
PROVIDERS: Nurse Practitioner Primary Care; Admitting Provider Obstetrics & Gynecology; Emergency Provider Emergency Medicine; PCP Internal Medicine; Visit Provider Obstetrics & Gynecology
DX: N70.93 Salpingitis and oophoritis, unspecified (principal); F17.210 Nicotine dependence, cigarettes, uncomplicated; F32.9 Major depressive disorder, single episode, unspecified; Z71.6 Tobacco abuse counseling; Z20.828 Contact with and (suspected) exposure to other viral communicable diseases
CPT/HCPCS: 0241U; 36415; 71045; 74177; 80053; 80307; 81001; 81025; 83605; 85025; 87040; 96361; 96365; 96367; 99283; 99284; 99285; J2543; Q9967

== ENCOUNTER 2021-01-08 20:33 | Emergency (ER) | payer OTHER, SELFPAY ==
[2021-01-08 20:47] VITALS: BP 103/82; PULSE 116; RESP 17; TEMP 37.5; O2SAT 96; BMI 30.1
== END 2021-01-08 22:25 | disposition left against medical advice (07) ==
PROVIDERS: Emergency Provider Internal Medicine; PCP Internal Medicine
DX: J02.9 Acute pharyngitis, unspecified (principal); R05 Cough
CPT/HCPCS: 87880; 99283

== ENCOUNTER 2022-03-15 16:55 | Emergency (ER) | payer MEDICAID, SELFPAY ==
--- NOTE | ~2022-03-15 | US_ITS ---
EXAMINATION: US OBSTETRICAL ULTRASOUND CLINICAL INFORMATION: . Vaginal bleeding. Abdominal cramping LMP 12/12/21 COMPARISON: None. LMP: 12/12/21. Gestational age by maternal dates is 13 weeks 2 days. Estimated date of delivery by maternal dates is 09/18/22. TECHNIQUE: Transcutaneous early obstetrical ultrasound. The patient was asked to void completely and reexamined vaginally to better characterize an irregular collection within the uterus in better evaluate the adnexa FINDINGS: There is no suspicious abnormality in the expected region of the vagina. The estimated cervical length is approximately 3.2 cm. The overall uterine measurements are not documented. The uterus measures approximately 10.3 x 5.8 cm sagittally. Transversely the uterus measures approximately 7.9 cm. There is no intrauterine pole demonstrated. There is an irregular intrauterine fluid-filled sac and there are heterogeneous areas of altered echotexture surrounding the irregular sac. HR: No cardiac activity demonstrated. CRL (crown rump length): No pole demonstrated There is no yolk sac. MATERNAL ADNEXA: The right maternal ovary measures 3.8 x 2.8 x 2.9 cm. There is an approximately 2.5 cm right ovarian cyst. No convincing evidence of a right adnexal ectopic The left maternal ovary measures 3.8 x 1.5 x 2.1 cm. No suspicious left adnexal mass or collection There is no significant maternal adnexal mass. No maternal pelvic ascites. US/US OB <= 14 weeks fetus IMPRESSION: 1. No intrauterine gestation demonstrated. Irregular fluid-filled sac within the uterus with surrounding altered echotexture and heterogeneity. 2. No pole, cardiac activity or yolk sac. There is no convincing suspicious finding to suggest an ectopic . 3. No free pelvic fluid. Possibilities include a missed , or a nonvisualized ectopic . I favor the former. Correlate with quantitative beta hCG. Depending upon clinical circumstances follow-up may be helpful.
[2022-03-15 17:05] VITALS: BP 110/55; PULSE 81; RESP 18; TEMP 37; O2SAT 97; BMI 31.2
--- NOTE | 2022-03-15 18:28 | PC.NURSE ---
Difficult stick. 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 Last IVD was april 2021
[2022-03-15 18:40] LABS: MANUAL DIFF FLAG NO
[2022-03-15 18:45] LABS: Appearance Urine HAZY; Color Urine DK YELLOW; Glucose Urine UA NEG (NEG); Leukocyte Esterase Urine NEG (NEG); Nitrite Urine NEG (NEG); Specific Gravity - Urine >= 1.030 (1.005-1.025); UACC Culture Trigger NO; Urine Blood 3+ (NEG); Urine Ketones NEG (NEG); Urine Protein TRACE MG/DL (NEG-TRACE)
[2022-03-15 18:47] LABS: UPreg QC Valid YES; Urine Pregnancy POSITIVE (NEGATIVE)
[2022-03-15 18:52] LABS: Basophils Percent Auto 0.2 % (0-2); Eosinophils Absolute Auto 0.1 X10*3/uL (0.0-0.4); Eosinophils Percent Auto 1.3 % (0-4); Hematocrit 43.5 % (37.0-47.0); Hemoglobin 15.2 g/dl (12.0-16.0); Imm Gran Abs Auto 0.03 X10*3/uL (0.00-0.03); Imm Gran Pct Auto 0.3 % (0.0-0.4); Lymphocytes Absolute Auto 2.2 X10*3/uL (1.2-4.9); Lymphocytes Percent Auto 21.5 % (20-40); Mean Corpuscular HGB Conc 34.9 g/dl (31.0-35.0); Mean Corpuscular Hemoglobin 32.2 pg (27.0-33.0); Mean Corpuscular Volume 92.2 fL (80.0-98.0); Mean Platelet Volume 11.2 fL (9.4-12.3); Monocytes Absolute Auto 0.7 X10*3/uL (0.1-1.2); Monocytes Percent Auto 7.3 % (2-11); Neutrophils Absolute Auto 6.9 x10*3/uL (2.0-8.3); Neutrophils Percent Auto 69.4 % (45-73); Platelet Count 214 X10*3/uL (160-400); Red Blood Count 4.72 X10*6/uL (4.20-5.50); Red Cell Distribution Width 13.2 % (11.0-16.0)
[2022-03-15 18:52] LABS: Mucus Urine TRACE /LPF; Squamous Epithelial Cell Urine 2+ /LPF; Uric Acid Crystals Urine TRACE /LPF; WBC Urine 0-2 /HPF (0-4)
--- NOTE | 2022-03-15 18:58 | ED_ITS ---
HPI - Abdominal Pain General Chief Complaint: Abdominal Pain <Kavya ChappellSARAH BETH - Last Filed: 03/16/22 02:36> Stated Complaint: abd pain, bleeding,14wks <Kavya Bradley SARAH BETH Chappell - Last Filed: 03/16/22 02:36> Time Seen by Provider: 03/15/22 18:44 <Kavya Bradley SARAH BETH Chappell - Last Filed: 03/16/22 02:36> Source: patient <Kavya ChappellSARAH BETH - Last Filed: 03/16/22 02:36> Mode of arrival: ambulatory <Kavya ChappellSARAH BETH Emeterio Last Filed: 03/16/22 02:36> Limitations: no limitations <Kavya ChappellSARAH BETH - Last Filed: 03/16/22 02:36> History of Present Illness HPI narrative: Patient presents emergency department for abdominal pain suprapubic radiating across to the left side into her left lower back. Onset of pain last night. Additionally reports small amount of vaginal bleeding. Reports that she has soaked through 1/2 of a panty liner throughout the entire day. Denies any trauma or injury. She does state that she is about 12 weeks , last menstrual period 12/17/2021, has not yet had any care, scheduled to be seen in 1 week. She does report a history of placental abruption resulting in a at 32 weeks with 1 of her previous children. <Kavya Bradley SARAH BETH Chappell - Last Filed: 03/16/22 02:36> Related Data Home Medications: Home Medications Medication Instructions Recorded Confirmed No Known Home Meds 08/02/20 08/02/20 <Kavya Bradley SARAH BTEH Chappell - Last Filed: 03/16/22 02:36> Allergies/Adverse Reactions: Allergies Allergy/AdvReac Type Severity Reaction Status Date / Time trazodone [TRAZODONE] AdvReac Severe FACE Verified 01/08/21 20:46 SWELLING, VOMITING <Kavya FranklinSARAH BETH taylor - Last Filed: 03/16/22 02:36> Review of Systems Review of Systems Constitutional : No Weight loss, No Fever, No Chills ENT/Mouth :? No sore throat, No Rhinorrhea Eyes: No Swelling, No Redness Cardiovascular : No Chest Pain, No SOB, No Edema Respiratory : No Cough, No Sputum, No Wheezing Gastrointestinal : No Nausea, no Vomiting, no Diarrhea, positive abdominal pain, No Hematochezia, No Melena Genitourinary : No Dysuria, No Urinary Frequency, No Hematuria, No Urgency. Positive vaginal bleeding? Musculoskeletal : No joint pain, No Myalgias, No Joint Swelling Skin : No Skin Lesions, No rash Neuro : No Weakness, No Numbness, No Dizziness, No Headache Psych : No Anxiety/Panic, No Depression Heme/Lymph: No Bruising, No Lymphadenopathy Endocrine : No Polyuria, No Polydipsia <Kavya Chappell CNP - Last Filed: 03/16/22 02:36> Yes all other systems are reviewed and are negative <Kavya Chappell CNP - Last Filed: 03/16/22 02:36> [facility] Past Medical History Attestation statement: The following information was validated with the patient. <Kavya Chappell CNP - Last Filed: 03/16/22 02:36> Source: old records reviewed <Kavya Chappell CNP - Last Filed: 03/16/22 02:36> Medical History: Medical History Depression Drug abuse IV drug user <Kavya Chappell CNP - Last Filed: 03/16/22 02:36> Surgical History: Surgical History History of <Kavya Chappell CNP - Last Filed: 03/16/22 02:36> Social History Social History: Social History Household Members: None Housing: Apartment Do you presently have visiting nurse or other home services: No Alcohol intake: never Cigarette Packs Per Day: 1 Cigarettes Per Day: 20.0 Years Smoked: 16 Second Hand Smoke Exposure: No Substance Use Type: Marijuana Advance Directives: No Advance Directives Information Provided: No <Kavya Chappell CNP - Last Filed: 03/16/22 02:36> Physical Exam ED Vital Signs: Vital Signs - 24 hr 03/15/22 17:05 03/15/22 21:57 03/16/22 00:30 Temperature 98.6 F Pulse Rate 81 66 75 Respiratory Rate 18 18 14 Blood Pressure 110/55 L 120/73 122/63 Pulse Oximetry 97 99 99 Oxygen Delivery Method Room Air Room Air Room Air 03/16/22 01:02 03/16/22 04:22 03/16/22 06:00 Temperature 98.3 F 98.5 F Pulse Rate 72 77 Respiratory Rate 14 20 Blood Pressure 115/62 102/65 Pulse Oximetry 97 100 Oxygen Delivery Method Room Air Room Air BMI result Body Mass Index 31.2 Vital signs have been reviewed as normal and appeared to be correct. Blood pressure normal.? Heart rate normal.? Respiration rate normal. Temperature normal.? Oxygen saturation normal. <Kavya Chappell CNP - Last Filed: 03/16/22 02:36> Vital Signs - 24 hr 03/15/22 17:05 03/15/22 21:57 03/16/22 00:30 Temperature 98.6 F Pulse Rate 81 66 75 Respiratory Rate 18 18 14 Blood Pressure 110/55 L 120/73 122/63 Pulse Oximetry 97 99 99 Oxygen Delivery Method Room Air Room Air Room Air 03/16/22 01:02 03/16/22 04:22 03/16/22 06:00 Temperature 98.3 F 98.5 F Pulse Rate 72 77 Respiratory Rate 14 20 Blood Pressure 115/62 102/65 Pulse Oximetry 97 100 Oxygen Delivery Method Room Air Room Air BMI result Body Mass Index 31.2 <Bianca North MD - Last Filed: 03/16/22 06:53> Appearance: Alert.?Oriented to person, place and time. No acute distress.?Normal affect. Eyes: Pupils equal, round and reactive to light.? ENT: Pharynx normal.?? Neck: Normal inspection.? Neck supple.?? CVS: Heart sounds normal. Normal heart rate and rhythm.? Pulses normal.?? Respiratory: No respiratory distress.? Lung sounds clear to auscultation bilaterally?? Abdomen: Soft and non-tender. Normoactive bowel sounds. Genitourinary:? Supervised by Elissa JOHNSON. Normal external appearance of urethra.? No lesions/lacerations or discharge or tenderness noted. No Bartholin cyst noted.? Speculum exam: normal appearance/palpation of vagina normal. No abnormal vaginal discharge, swelling, erythema, laceratons. Positive active vaginal bleeding?No foreign bodies noted.? Positive vaginal tenderness noted.? Normal appearance of cervix. Normal palpation of cervix.? Cervical os is closed, small amount of bright red bleeding from cervical os noted.?No cervical motion tenderness noted.? Negative chandelier sign. No adnexal tenderness. Normal rectovaginal exam. Skin: Skin warm and dry.? Normal skin color.? Extremities: No lower extremity edema.? Neuro: Moves all extremities spontaneously. Sensation intact bilaterally. No focal neuro deficits. Ambulates with normal steady gait. <Kavya Chappell CNP - Last Filed: 03/16/22 02:36> Course Course Course Narrative: Patient is a G8 T4 L5, presents to the emergency department for evaluation of abdominal pain in light vaginal bleeding since yesterday, estimated due date 09/25/2022. She has not yet been evaluated by Ob. Patient does report a history of placental abruption requiring in the past at 32 weeks. Denies any additional symptoms regular obtain CBC, BMP, urinalysis, RH, pelvic ultrasound, and perform pelvic exam. <Kavya Chappell CNP - Last Filed: 03/16/22 02:36> Reevaluation(s) Reevaluation #1: CBC is unremarkable. CMP is overall unremarkable, mildly elevated transaminases consistent with prior. current hCG level 8128. Pelvic exam performed, noted to have bleeding from cervical os. <Kavya Chappell CNP - Last Filed: 03/16/22 02:36> Time: 19:15 <Kavya Chappell CNP - Last Filed: 03/16/22 02:36> Reevaluation #2: Pelvic ultrasound reveals no intrauterine gestation to be demonstrated, No pole cardiac activity or yolk sac, no convincing findings for ectopic , no free pelvic fluid. Patient updated on these findings <Kavya Chappell CNP - Last Filed: 03/16/22 02:36> Time: 22:07 <Kavya Chappell CNP - Last Filed: 03/16/22 02:36> Reevaluation #3: Spoke with Dr. Hook, recommends NPO, repeat HCG in the morning, if decreasing and no significant pain, more likely to be a missed and can follow-up outpatient, however the hCG level is higher would recommend having repeat ultrasound at that time to re-evaluate for ectopic . Patient updated on plan of care. All questions answered. <Kavya Chappell CNP - Last Filed: 03/16/22 02:36> Time: 23:05 <Kavya Chappell CNP - Last Filed: 03/16/22 02:36> Additional Reevaluation(s): 0200: Patient signed out to Dr. North pending repeat labs in the morning and re-evaluation. <Kavya Chappell CNP - Last Filed: 03/16/22 02:36> 0200: Patient signed out to Dr. North pending repeat labs in the morning and re-evaluation. 0630: I discussed all repeat labs, patient's current clinical status with Dr. Hook who recommends that patient follow-up on Friday with their office at which time she will get a repeat hCG if he keeps dropping, a repeat ultrasound will be obtained to confirm MAB. <Bianca North MD - Last Filed: 03/16/22 06:53> MDM - Abdominal Pain Medical Records Attestation: I reviewed the patient's medical records. <Kavya Chappell CNP - Last Filed: 03/16/22 02:36> Lab Data Attestation: I reviewed the patient's lab results. <Kavya Chappell CNP - Last Filed: 03/16/22 02:36> Result diagrams: : 03/15/22 18:34 03/15/22 18:34 <Kavya Chappell CNP - Last Filed: 03/16/22 02:36> Labs: Lab Results 03/15/22 03/15/22 03/15/22 Range/Units 18:26 18:26 18:34 WBC 10.0 (4.8-10.8) X10*3/uL RBC 4.72 (4.20-5.50) X10*6/uL Hgb 15.2 (12.0-16.0) g/dl Hct 43.5 (37.0-47.0) % MCV 92.2 (80.0-98.0) fL MCH 32.2 (27.0-33.0) pg MCHC 34.9 (31.0-35.0) g/dl RDW 13.2 (11.0-16.0) % Plt Count 214 (160-400) X10*3/uL MPV 11.2 (9.4-12.3) fL Immature Gran % (Auto) 0.3 (0.0-0.4) % Neut % (Auto) 69.4 (45-73) % Lymph % (Auto) 21.5 (20-40) % [place] % (Auto) 7.3 (2-11) % Eos % (Auto) 1.3 (0-4) % Baso % (Auto) 0.2 (0-2) % Lymph # (Auto) 2.2 (1.2-4.9) X10*3/uL [place] # (Auto) 0.7 (0.1-1.2) X10*3/uL Eos # (Auto) 0.1 (0.0-0.4) X10*3/uL Baso # (Auto) 0.0 (0.0-0.2) X10*3/uL Abs Immat Gran (auto) 0.03 (0.00-0.03) X10*3/uL Absolute Neuts (auto) 6.9 (2.0-8.3) x10*3/uL Absolute Nucleated RBC 0.000 (0.0-0.012) X10*3/uL Nucleated RBC % (auto) 0.0 (0.0-0.2) /100WBC Sodium (135-145) mmol/L Potassium (3.3-5.1) mmol/L Chloride (96-108) mmol/L Carbon Dioxide (22-29) mmol/L Anion Gap (12-20) BUN (9-16) mg/dL Creatinine (0.5-1.4) mg/dL Estim Creat Clear Calc Estimated GFR Random Glucose (60-115) mg/dL Calcium (8.4-10.2) mg/dL Total Bilirubin (0.0-1.0) mg/dL Direct Bilirubin (0.0-0.5) mg/dL AST (5-31) U/L ALT (0-31) U/L Alkaline Phosphatase (39-117) U/L Total Protein (6.5-8.0) g/dL Albumin (3.5-5.0) g/dL Lipase (8-78) U/L Beta HCG, Quant mIU/mL Urine Color DK YELLOW Urine Appearance HAZY Urine pH 6.0 (5.0-8.0) Ur Specific [place] >= 1.030 H (1.005-1.025) Urine Protein TRACE (NEG-TRACE) MG/DL Urine Glucose (UA) NEG (NEG) MG/DL Urine Ketones NEG (NEG) MG/DL Urine Blood 3+ H (NEG) Urine Nitrite NEG (NEG) Ur Leukocyte Esterase NEG (NEG) Urine RBC 5-9 H (0) /HPF Urine WBC 0-2 (0-4) /HPF Ur Squamous Epith Cells 2+ /LPF Uric Acid Crystals TRACE /LPF Urine Bacteria NONE /LPF Urine Mucus TRACE /LPF Urine Test POSITIVE H (NEGATIVE) Blood Type 03/15/22 03/15/22 03/16/22 Range/Units 18:34 18:34 05:29 WBC (4.8-10.8) X10*3/uL RBC (4.20-5.50) X10*6/uL Hgb (12.0-16.0) g/dl Hct (37.0-47.0) % MCV (80.0-98.0) fL MCH (27.0-33.0) pg MCHC (31.0-35.0) g/dl RDW (11.0-16.0) % Plt Count (160-400) X10*3/uL MPV (9.4-12.3) fL Immature Gran % (Auto) (0.0-0.4) % Neut % (Auto) (45-73) % Lymph % (Auto) (20-40) % [place] % (Auto) (2-11) % Eos % (Auto) (0-4) % Baso % (Auto) (0-2) % Lymph # (Auto) (1.2-4.9) X10*3/uL [place] # (Auto) (0.1-1.2) X10*3/uL Eos # (Auto) (0.0-0.4) X10*3/uL Baso # (Auto) (0.0-0.2) X10*3/uL Abs Immat Gran (auto) (0.00-0.03) X10*3/uL Absolute Neuts (auto) (2.0-8.3) x10*3/uL Absolute Nucleated RBC (0.0-0.012) X10*3/uL Nucleated RBC % (auto) (0.0-0.2) /100WBC Sodium 138 (135-145) mmol/L Potassium 4.5 (3.3-5.1) mmol/L Chloride 107 (96-108) mmol/L Carbon Dioxide 24 (22-29) mmol/L Anion Gap 12 (12-20) BUN 8 L (9-16) mg/dL Creatinine 0.75 (0.5-1.4) mg/dL Estim Creat Clear Calc 93.9 Estimated GFR > 60 Random Glucose 85 (60-115) mg/dL Calcium 9.3 D (8.4-10.2) mg/dL Total Bilirubin 0.6 (0.0-1.0) mg/dL Direct Bilirubin 0.3 (0.0-0.5) mg/dL AST 46 H (5-31) U/L ALT 48 H (0-31) U/L Alkaline Phosphatase 59 D (39-117) U/L Total Protein 7.6 (6.5-8.0) g/dL Albumin 3.9 (3.5-5.0) g/dL Lipase 12 (8-78) U/L Beta HCG, Quant 8128 6604 mIU/mL Urine Color Urine Appearance Urine pH (5.0-8.0) Ur Specific [place] (1.005-1.025) Urine Protein (NEG-TRACE) MG/DL Urine Glucose (UA) (NEG) MG/DL Urine Ketones (NEG) MG/DL Urine Blood (NEG) Urine Nitrite (NEG) Ur Leukocyte Esterase (NEG) Urine RBC (0) /HPF Urine WBC (0-4) /HPF Ur Squamous Epith Cells /LPF Uric Acid Crystals /LPF Urine Bacteria /LPF Urine Mucus /LPF Urine Test (NEGATIVE) Blood Type A Positive <Kavya Chappell CNP - Last Filed: 03/16/22 02:36> Lab Results 07/08/22 07/08/22 07/08/22 Range/Units 18:26 18:26 18:34 WBC 10.0 (4.8-10.8) X10*3/uL RBC 4.72 (4.20-5.50) X10*6/uL Hgb 15.2 (12.0-16.0) g/dl Hct 43.5 (37.0-47.0) % MCV 92.2 (80.0-98.0) fL MCH 32.2 (27.0-33.0) pg MCHC 34.9 (31.0-35.0) g/dl RDW 13.2 (11.0-16.0) % Plt Count 214 (160-400) X10*3/uL MPV 11.2 (9.4-12.3) fL Immature Gran % (Auto) 0.3 (0.0-0.4) % Neut % (Auto) 69.4 (45-73) % Lymph % (Auto) 21.5 (20-40) % [place] % (Auto) 7.3 (2-11) % Eos % (Auto) 1.3 (0-4) % Baso % (Auto) 0.2 (0-2) % Lymph # (Auto) 2.2 (1.2-4.9) X10*3/uL [place] # (Auto) 0.7 (0.1-1.2) X10*3/uL Eos # (Auto) 0.1 (0.0-0.4) X10*3/uL Baso # (Auto) 0.0 (0.0-0.2) X10*3/uL Abs Immat Gran (auto) 0.03 (0.00-0.03) X10*3/uL Absolute Neuts (auto) 6.9 (2.0-8.3) x10*3/uL Absolute Nucleated RBC 0.000 (0.0-0.012) X10*3/uL Nucleated RBC % (auto) 0.0 (0.0-0.2) /100WBC Sodium (135-145) mmol/L Potassium (3.3-5.1) mmol/L Chloride (96-108) mmol/L Carbon Dioxide (22-29) mmol/L Anion Gap (12-20) BUN (9-16) mg/dL Creatinine (0.5-1.4) mg/dL Estim Creat Clear Calc Estimated GFR Random Glucose (60-115) mg/dL Calcium (8.4-10.2) mg/dL Total Bilirubin (0.0-1.0) mg/dL Direct Bilirubin (0.0-0.5) mg/dL AST (5-31) U/L ALT (0-31) U/L Alkaline Phosphatase (39-117) U/L Total Protein (6.5-8.0) g/dL Albumin (3.5-5.0) g/dL Lipase (8-78) U/L Beta HCG, Quant mIU/mL Urine Color DK YELLOW Urine Appearance HAZY Urine pH 6.0 (5.0-8.0) Ur Specific [place] >= 1.030 H (1.005-1.025) Urine Protein TRACE (NEG-TRACE) MG/DL Urine Glucose (UA) NEG (NEG) MG/DL Urine Ketones NEG (NEG) MG/DL Urine Blood 3+ H (NEG) Urine Nitrite NEG (NEG) Ur Leukocyte Esterase NEG (NEG) Urine RBC 5-9 H (0) /HPF Urine WBC 0-2 (0-4) /HPF Ur Squamous Epith Cells 2+ /LPF Uric Acid Crystals TRACE /LPF Urine Bacteria NONE /LPF Urine Mucus TRACE /LPF Urine Test POSITIVE H (NEGATIVE) Blood Type 03/15/22 03/15/22 03/16/22 Range/Units 18:34 18:34 05:29 WBC (4.8-10.8) X10*3/uL RBC (4.20-5.50) X10*6/uL Hgb (12.0-16.0) g/dl Hct (37.0-47.0) % MCV (80.0-98.0) fL MCH (27.0-33.0) pg MCHC (31.0-35.0) g/dl RDW (11.0-16.0) % Plt Count (160-400) X10*3/uL MPV (9.4-12.3) fL Immature Gran % (Auto) (0.0-0.4) % Neut % (Auto) (45-73) % Lymph % (Auto) (20-40) % [place] % (Auto) (2-11) % Eos % (Auto) (0-4) % Baso % (Auto) (0-2) % Lymph # (Auto) (1.2-4.9) X10*3/uL [place] # (Auto) (0.1-1.2) X10*3/uL Eos # (Auto) (0.0-0.4) X10*3/uL Baso # (Auto) (0.0-0.2) X10*3/uL Abs Immat Gran (auto) (0.00-0.03) X10*3/uL Absolute Neuts (auto) (2.0-8.3) x10*3/uL Absolute Nucleated RBC (0.0-0.012) X10*3/uL Nucleated RBC % (auto) (0.0-0.2) /100WBC Sodium 138 (135-145) mmol/L Potassium 4.5 (3.3-5.1) mmol/L Chloride 107 (96-108) mmol/L Carbon Dioxide 24 (22-29) mmol/L Anion Gap 12 (12-20) BUN 8 L (9-16) mg/dL Creatinine 0.75 (0.5-1.4) mg/dL Estim Creat Clear Calc 93.9 Estimated GFR > 60 Random Glucose 85 (60-115) mg/dL Calcium 9.3 D (8.4-10.2) mg/dL Total Bilirubin 0.6 (0.0-1.0) mg/dL Direct Bilirubin 0.3 (0.0-0.5) mg/dL AST 46 H (5-31) U/L ALT 48 H (0-31) U/L Alkaline Phosphatase 59 D (39-117) U/L Total Protein 7.6 (6.5-8.0) g/dL Albumin 3.9 (3.5-5.0) g/dL Lipase 12 (8-78) U/L Beta HCG, Quant 8128 6604 mIU/mL Urine Color Urine Appearance Urine pH (5.0-8.0) Ur Specific [place] (1.005-1.025) Urine Protein (NEG-TRACE) MG/DL Urine Glucose (UA) (NEG) MG/DL Urine Ketones (NEG) MG/DL Urine Blood (NEG) Urine Nitrite (NEG) Ur Leukocyte Esterase (NEG) Urine RBC (0) /HPF Urine WBC (0-4) /HPF Ur Squamous Epith Cells /LPF Uric Acid Crystals /LPF Urine Bacteria /LPF Urine Mucus /LPF Urine Test (NEGATIVE) Blood Type A Positive <Bianca North MD - Last Filed: 03/16/22 06:53> Imaging Data US - abdomen: Radiologist's impression: US/US OB <= 14 weeks fetus IMPRESSION: 1. No intrauterine gestation demonstrated. Irregular fluid-filled sac within the uterus with surrounding altered echotexture and heterogeneity. 2. No pole, cardiac activity or yolk sac. There is no convincing suspicious finding to suggest an ectopic . 3. No free pelvic fluid. ? Possibilities include a missed , or a nonvisualized ectopic . I favor the former. ? Correlate with quantitative beta hCG. Depending upon clinical circumstances follow-up may be helpful. <Kavya Chappell CNP - Last File d: 03/16/22 02:36> Discharge Plan Discharge Clinical Impression: Vaginal bleeding in <Kavya Chappell CNP - Last Filed: 03/16/22 02:36> Patient Disposition: Home, Self-Care <Kavya Chappell CNP - Last Filed: 03/16/22 02:36> Instructions: Threatened Miscarriage (ED) <Kavya Chappell CNP - Last Filed: 03/16/22 02:36> Additional Instructions: As we discussed, your hCG hormone levels are elevated but continued to de crease. Your ultrasound does not reveal any sign at the fetus within your uterus, on discussion with our on-call branch operations manager he recommends that you follow-up with his office on Friday. A referral has been provided to you below. Do not hesitate to return to the emergency room for any worsening of your symptoms. <Kavya Chappell CNP - Last Filed: 03/16/22 02:36> Prescriptions: No Action No Known Home Meds <Kavya Chappell CNP - Last Filed: 03/16/22 02:36> Referrals: Erickson Hook MD [Physician] - 3 days <Kavya Chappell CNP - Last Filed: 03/16/22 02:36>
[2022-03-15 19:00] LABS: Alanine Aminotransferase 48 U/L (0-31); Albumin Level 3.9 g/dL (3.5-5.0); Alkaline Phosphatase 59 U/L (39-117); Anion Gap 12 (12-20); Aspartate Amino Transferase 46 U/L (5-31); Bilirubin Direct 0.3 mg/dL (0.0-0.5); Bilirubin Total 0.6 mg/dL (0.0-1.0); Blood Urea Nitrogen 8 mg/dL (9-16); Calcium 9.3 mg/dL (8.4-10.2); Carbon Dioxide 24 mmol/L (22-29); Chloride 107 mmol/L (96-108); Creatinine Clr Calc Pharmacy 93.9; Estimated Glomerular Filt Rate > 60; Glucose Random 85 mg/dL (60-115); Lipase 12 U/L (8-78); Potassium 4.5 mmol/L (3.3-5.1); Sodium 138 mmol/L (135-145); Total Protein 7.6 g/dL (6.5-8.0)
[2022-03-15 19:06] LABS: HCG Quantitative 8128 mIU/mL
[2022-03-15 21:57] VITALS: BP 120/73; PULSE 66; RESP 18; O2SAT 99
--- NOTE | 2022-03-15 23:01 | P.CONOB_ITS ---
STAFF REPORTER - CN: HPI Data of Consult Consult date: 03/15/22 Primary Care Provider: Ozzy Ellison MD Consult Narrative Narrative: I was consulted on Fidel Gómez who is a 36 year old female presented to emergency department with suprapubic cramping radiating across to the left side into her left lower back since last night, associated with mild vaginal spotting/bleeding.?LMP on 12/17/2021 making her by dates at 12 weeks and 4 days of gestation , with no care yet. hCG 8128, CBC within normal, blood type A positive cc:: CC: OB [facility] Past Medical History Medical History Depression Drug abuse IV drug user Surgical History Surgical History History of Social History Social History Household Members: None Housing: Apartment Do you presently have visiting nurse or other home services: No Alcohol intake: never Cigarette Packs Per Day: 1 Cigarettes Per Day: 20.0 Years Smoked: 16 Second Hand Smoke Exposure: No Substance Use Type: Marijuana Advance Directives: No Advance Directives Information Provided: No Meds Allergies Allergy/AdvReac Type Severity Reaction Status Date / Time trazodone [TRAZODONE] AdvReac Severe FACE Verified 01/08/21 20:46 SWELLING, VOMITING Home Medications Medication Instructions Recorded Confirmed Last Taken Type No Known Home Meds 08/02/20 08/02/20 Unknown History STAFF REPORTER Physical Exam Vitals Vital signs: Temp Pulse Resp BP Pulse Ox O2 Del Method 98.6 F 66 18 120/73 99 03/15/22 17:05 03/15/22 21:57 03/15/22 21:57 03/15/22 21:57 03/15/22 21:57 03/15/22 21:57 BMI result Body Mass Index 31.2 Additional Comments: Physical exam reported on the phone by SHANTA Knapp in the emergency room as the following: Abdominal exam within normal with no guarding or rebound, pelvic exam no adnexal tenderness cervical motion tenderness and minimal blood per vagina STAFF REPORTER - Results Labs CBC & Chem 7: 03/15/22 18:34 03/15/22 18:34 Labs: Short CBC 03/15/22 Range/Units 18:34 WBC 10.0 (4.8-10.8) X10*3/uL Hgb 15.2 (12.0-16.0) g/dl Hct 43.5 (37.0-47.0) % Plt Count 214 (160-400) X10*3/uL BMP 03/15/22 18:34 Sodium 138 Potassium 4.5 Chloride 107 Carbon Dioxide 24 BUN 8 L Creatinine 0.75 Calcium 9.3 D Liver Function 03/15/22 Range/Units 18:34 Total Bilirubin 0.6 (0.0-1.0) mg/dL Direct Bilirubin 0.3 (0.0-0.5) mg/dL AST 46 H (5-31) U/L ALT 48 H (0-31) U/L Alkaline Phosphatase 59 D (39-117) U/L Albumin 3.9 (3.5-5.0) g/dL Urine 03/15/22 03/15/22 Range/Units 18:26 18:26 Urine Color DK YELLOW Urine Appearance HAZY Urine pH 6.0 (5.0-8.0) Ur Specific [place] >= 1.030 H (1.005-1.025) Urine Protein TRACE (NEG-TRACE) MG/DL Urine Glucose (UA) NEG (NEG) MG/DL Urine Test POSITIVE H (NEGATIVE) Imaging US - abdomen: Radiologist's impression: ITS Impressions Ultrasound 03/15/22 19:55 IMPRESSION: 1. No intrauterine gestation demonstrated. Irregular fluid-filled sac within the uterus with surrounding altered echotexture and heterogeneity. 2. No pole, cardiac activity or yolk sac. There is no convincing suspicious finding to suggest an ectopic . 3. No free pelvic fluid. Possibilities include a missed , or a nonvisualized ectopic . I favor the former. Correlate with quantitative beta hCG. Depending upon clinical circumstances follow-up may be helpful. Assessment and Plan (1) Vaginal bleeding in : Status: Acute Plan Recommended the following to SHANTA Knapp in the emergency: Since the patient does not give a history of heavy vaginal bleeding and / for passage of blood clots and tissues, it is unlikely that the patient had a complete . Given that the hCG is above 3500, if there is no evidence of intrauterine gestation, ectopic is highly suspicious. On ultrasound there is no evidence of any adnexal masses, and there is an intrauterine Irregular fluid-filled sac within the uterus with surrounding altered echotexture and heterogeneity. No intrauterine gestation demonstrated with No pole, cardiac activity or yolk sac. The differential diagnosis includes either intrauterine missed , or an ectopic that was not visualized on ultrasound.Therefore, I recommend to keep the patient in the emergency room for observation and NPO.and repeat hCG and pelvic ultrasound in 6 hours: if the patient's pain and/or physical exam get worse during the observation period, the patient needs to be re-evaluated immediately. If the patient clinical situation stays the same, hCG is lower and there is evidence of missed by ultrasound , will discuss options of treatment, specifically medical termination of . If repeat hCG is higher and/or there is evidence of adnexal mass will treat the ectopic . ER course: 06:30 a.m. I received a call from Dr Anne regarding HCG repeated and went down to 6604, vaginal bleeding is scant and the patient slept overnight with minimal pelvic cramps. Recommended to Dr. Anne the following: The clinical scenario looks more like missed AB although ectopic cannot be ruled out even though hCG is dropping. Since the patient has minimal vaginal bleeding , she is to be discharged home and follow-up in 48 hours with repeat hCG and ultrasound in the office to confirm missed A/B and rule out ectopic; once confirmed, will discuss with the patient the options of treatment including medical termination of versus suction D&C. On discharge, SAB/ectopic warnings to be given to patient, she is to come back to the emergency room in case of worsening of her pain and /or bleeding. I spent a total of 30 minutes reviewing the chart, communicating with ER provider and documenting in the medical record
[2022-03-16 00:30] VITALS: BP 122/63; PULSE 75; RESP 14; O2SAT 99
[2022-03-16 01:02] VITALS: TEMP 36.8
[2022-03-16 04:22] VITALS: BP 115/62; PULSE 72; RESP 14; O2SAT 97
[2022-03-16 06:00] VITALS: BP 102/65; PULSE 77; RESP 20; TEMP 36.9; O2SAT 100
[2022-03-16 06:15] LABS: HCG Quantitative 6604 mIU/mL
== END 2022-03-16 07:22 | disposition home or self-care (01) ==
PROVIDERS: Internal Medicine; Nurse Practitioner Family; Emergency Provider Student in an Organized Health Care Education/Training Program; PCP Internal Medicine
DX: O46.91 Antepartum hemorrhage, unspecified, first trimester (principal); Z3A.12 12 weeks gestation of pregnancy; O99.331 Smoking (tobacco) complicating pregnancy, first trimester; F17.210 Nicotine dependence, cigarettes, uncomplicated
CPT/HCPCS: 36415; 76801; 80048; 80076; 81001; 81025; 83690; 84702; 85025; 86900; 86901; 99284

== ENCOUNTER 2022-03-18 12:08 | Outpatient (REF) | payer MEDICAID, SELFPAY ==
--- NOTE | ~2022-03-18 | US_ITS ---
EXAMINATION: US OBSTETRICAL ULTRASOUND CLINICAL INFORMATION: Hemorrhage COMPARISON: Previous pelvic ultrasound 03/15/2022. LMP: 12/12/2021. Gestational age by maternal dates is 13 weeks 5 days. Estimated date of delivery by maternal dates is 09/18/2022. TECHNIQUE: Transabdominal and transvaginal OB ultrasound FINDINGS: The uterus is normal in size and shape. There is an irregularly-shaped gestational sac seen in the upper endometrium. This measures 2 x 1.5 x 4 cm sagittal AP and transverse dimension. There is internal echogenic debris. No pole or yolk sac is seen. This is similar to previous exam 03/15/2022. There is heterogeneous soft tissue seen posterior and to the left of the gestational sac which demonstrates vascularity. Cervical length is 3 cm. The right ovary measures 4.2 x 2.8 x 3 cm. There is a 2.5 x 2.1 x 2.6 cm right ovarian cyst. Left ovary is normal-appearing and measures 3.5 x 1.7 x 2.6 cm. There is no fluid in the pelvis. US/US OB pelvic and transvaginal IMPRESSION: Irregularly-shaped intrauterine gestational sac with some echogenic debris. No pole or yolk sac seen. Ultrasound appearance is suggestive of missed / demise. This is similar to 03/15/2022 exam.
[2022-03-18 13:41] LABS: HCG Quantitative 4839 mIU/mL
== END 2022-03-18 12:09 | disposition home or self-care (01) ==
LOC: HO.US 12:08
PROVIDERS: PCP Internal Medicine; Visit Provider Obstetrics & Gynecology
DX: O46.90 Antepartum hemorrhage, unspecified, unspecified trimester (principal); Z3A.13 13 weeks gestation of pregnancy
CPT/HCPCS: 36415; 76801; 76817; 84702

== ENCOUNTER 2022-03-19 02:44 | Day surgery (SDC) | payer MEDICAID, SELFPAY ==
[2022-03-19] VITALS (17 sets, daily range): BP systolic 85–110; BP diastolic 36–71; PULSE 55–102; RESP 14–16; TEMP 36.2–36.6; O2SAT 96–100; BMI 35.2
--- NOTE | ~2022-03-19 | US_ITS ---
EXAMINATION: ULTRASOUND OB LIMITED CLINICAL INFORMATION: Retained products of conception. COMPARISON: Previous OB ultrasound most recent from yesterday TECHNIQUE: Transabdominal ultrasound was performed in the operating room pre and FINDINGS: endometrium suggestive of retained products of conception. This endometrial thickness measuring 0.5 cm. US/US OB limited IMPRESSION: Transabdominal ultrasound provided D and C.
--- NOTE | 2022-03-19 03:51 | ED.FEMALEGU ---
HPI - Female Genitourinary General Chief complaint: Vaginal Bleeding Stated complaint: ? MISCARRIAGE PER EMS Time Seen by Provider: 03/19/22 03:45 History of Present Illness HPI Narrative: Patient is a 36-year-old female presents today with having vaginal bleeding. Patient's last menstrual period was December 12. Has been followed by OBGYN. Had an ultrasound done on March 15 and also in March 18. Both showed positive gestational sac no yolk sac. The quant however has been coming down. Patient this morning complaining of increasing abdominal cramping vaginal bleeding hence came to the ED patient claims she soak 2 full pads. Her blood type is A positive. Related Data Home Medications Medication Instructions Recorded Confirmed No Known Home Meds 08/02/20 08/02/20 Allergies Allergy/AdvReac Type Severity Reaction Status Date / Time trazodone [TRAZODONE] AdvReac Severe FACE Verified 01/08/21 20:46 SWELLING, VOMITING Review of Systems Review of Systems: Positive lower abdominal pain cramping Yes all other systems are reviewed and are negative PMFSH Past Medical History Attestation statement: The following information was validated with the patient. Medical History Depression Drug abuse IV drug user Surgical History History of Social History Social History Household Members: None Housing: Apartment Do you presently have visiting nurse or other home services: No Alcohol intake: never Patient Tobacco Use Status: Current everyday Tobacco user Cigarette Packs Per Day: 1 Cigarettes Per Day: 20.0 Years Smoked: 16 Second Hand Smoke Exposure: No Use of substances other than those prescribed or required for medical reasons: Yes Substance Use Type: Marijuana Substance Use Frequency: Occasionally Advance Directives: No Patient : Yes Physical Exam Vital Signs: Vital Signs: Last Vital Signs Temp 97.7 F 03/19/22 03:02 Pulse 62 03/19/22 05:39 Resp 16 03/19/22 05:39 BP 93/47 L 03/19/22 05:40 Pulse Ox 99 03/19/22 05:39 O2 Del Method 03/19/22 05:39 BMI result Body Mass Index 35.2 Appearance: Alert. Oriented X3. No acute distress. Eyes: Pupils equal, round and reactive to light. ENT: Pharynx normal. Neck: Normal inspection. Neck supple. No lymph nodes noted. No crepitus CVS: Normal heart rate and rhythm. Pulses normal. Normal S1 and S2 Respiratory: No respiratory distress. Breath sounds normal. No Wheezing. No rales Abdomen: Soft and nontender. No rigidity. No distention. good BS x4 pelvic exam done with nurse Jenny present. There is lots of clot in the vaginal vault. All these clots were removed. The cervix appeared closed. Skin: Skin warm and dry. Normal skin color. Normal skin turgor. Extremities: No lower extremity edema. Neurovascular intact to all extremities. No Lacerations. No Rash Neuro: Oriented X 3. No motor deficit. No sensory deficit. Moving all extermities. No slurred speech MDM - Female Genitourinary MDM Narrative Medical decision making narrative: Patient is 36 years old presents today with vaginal bleeding. Patient's ultrasound done yesterday showed a gestational sac but no yolk sac. The quant has been coming down. Today patient now is complaining of increasing vaginal bleeding consistent with having a miscarriage. Vaginal exam showed lots of clots in the vaginal vault. There were all removed. Patient's case was discussed with Dr. Monster Clement from OBGYN. Will evaluate patient in the ED for possible D& C. patient is currently in stable condition. Patient is seen by OBGYN. Will take patient to the OR for the D and C Medical Records Attestation: I reviewed the patient's medical records. Lab Data Attestation: I reviewed the patient's lab results. Result diagrams: 03/19/22 04:45 03/19/22 04:45 Labs: Lab Results 03/19/22 03/19/22 03/19/22 Range/Units 04:45 04:45 04:45 WBC 10.2 (4.8-10.8) X10*3/uL RBC 4.44 (4.20-5.50) X10*6/uL Hgb 14.1 (12.0-16.0) g/dl Hct 42.2 (37.0-47.0) % MCV 95.0 (80.0-98.0) fL MCH 31.8 (27.0-33.0) pg MCHC 33.4 (31.0-35.0) g/dl RDW 13.2 (11.0-16.0) % Plt Count 255 (160-400) X10*3/uL MPV 10.9 (9.4-12.3) fL Immature Gran % (Auto) 0.5 H (0.0-0.4) % Neut % (Auto) 71.7 (45-73) % Lymph % (Auto) 19.6 L (20-40) % [place] % (Auto) 7.0 (2-11) % Eos % (Auto) 1.0 (0-4) % Baso % (Auto) 0.2 (0-2) % Lymph # (Auto) 2.0 (1.2-4.9) X10*3/uL [place] # (Auto) 0.7 (0.1-1.2) X10*3/uL Eos # (Auto) 0.1 (0.0-0.4) X10*3/uL Baso # (Auto) 0.0 (0.0-0.2) X10*3/uL Abs Immat Gran (auto) 0.05 H (0.00-0.03) X10*3/uL Absolute Neuts (auto) 7.3 (2.0-8.3) x10*3/uL Absolute Nucleated RBC 0.000 (0.0-0.012) X10*3/uL Nucleated RBC % (auto) 0.0 (0.0-0.2) /100WBC Sodium 136 (135-145) mmol/L Potassium 4.5 (3.3-5.1) mmol/L Chloride 105 (96-108) mmol/L Carbon Dioxide 23 (22-29) mmol/L Anion Gap 13 (12-20) BUN 10 (9-16) mg/dL Creatinine 0.70 (0.5-1.4) mg/dL Estim Creat Clear Calc 107.2 Estimated GFR > 60 Random Glucose 89 (60-115) mg/dL Calcium 9.3 (8.4-10.2) mg/dL Total Bilirubin 0.8 (0.0-1.0) mg/dL AST 45 H (5-31) U/L ALT 52 H (0-31) U/L Alkaline Phosphatase 89 D (39-117) U/L Total Protein 7.5 (6.5-8.0) g/dL Albumin 3.9 (3.5-5.0) g/dL Lipase 7 L (8-78) U/L Beta HCG, Quant 3875 mIU/mL Blood Type Antibody Screen 03/19/22 Range/Units 04:45 WBC (4.8-10.8) X10*3/uL RBC (4.20-5.50) X10*6/uL Hgb (12.0-16.0) g/dl Hct (37.0-47.0) % MCV (80.0-98.0) fL MCH (27.0-33.0) pg MCHC (31.0-35.0) g/dl RDW (11.0-16.0) % Plt Count (160-400) X10*3/uL MPV (9.4-12.3) fL Immature Gran % (Auto) (0.0-0.4) % Neut % (Auto) (45-73) % Lymph % (Auto) (20-40) % [place] % (Auto) (2-11) % Eos % (Auto) (0-4) % Baso % (Auto) (0-2) % Lymph # (Auto) (1.2-4.9) X10*3/uL [place] # (Auto) (0.1-1.2) X10*3/uL Eos # (Auto) (0.0-0.4) X10*3/uL Baso # (Auto) (0.0-0.2) X10*3/uL Abs Immat Gran (auto) (0.00-0.03) X10*3/uL Absolute Neuts (auto) (2.0-8.3) x10*3/uL Absolute Nucleated RBC (0.0-0.012) X10*3/uL Nucleated RBC % (auto) (0.0-0.2) /100WBC Sodium (135-145) mmol/L Potassium (3.3-5.1) mmol/L Chloride (96-108) mmol/L Carbon Dioxide (22-29) mmol/L Anion Gap (12-20) BUN (9-16) mg/dL Creatinine (0.5-1.4) mg/dL Estim Creat Clear Calc Estimated GFR Random Glucose (60-115) mg/dL Calcium (8.4-10.2) mg/dL Total Bilirubin (0.0-1.0) mg/dL AST (5-31) U/L ALT (0-31) U/L Alkaline Phosphatase (39-117) U/L Total Protein (6.5-8.0) g/dL Albumin (3.5-5.0) g/dL Lipase (8-78) U/L Beta HCG, Quant mIU/mL Blood Type A Positive Antibody Screen NEGATIVE Discharge Plan Discharge Clinical Impression: Miscarriage Patient Disposition: Admitted As Inpatient Prescriptions: No Action No Known Home Meds
--- NOTE | 2022-03-19 03:56 | PC.NURSE ---
IV and lab draws delayed due to difficult stick.
--- NOTE | 2022-03-19 04:03 | P.CONOB_ITS ---
FINANCIAL ADMINISTRATION OFFICER - CN: HPI Data of Consult Consult date: 03/19/22 Consult Narrative Narrative: I was consulted on Fidel Gómez is a 36 year old female who presented to the emergency room with vaginal bleeding.? Patient's last menstrual period was December 12.? Presented emergency room on 03/15,? Had an ultrasound done which showed an irregular gestational sac in utero with no yolk sac, another ultrasound was repeated on March 18 no official report available yet but unofficially there is an irregularly-shaped intrauterine gestational sac with no yolk sac or fetus.? HCG quantitative dropped from 8128 on 03/15 down to 3875 today.? The patient woke up this morning with an increase in cramping and have your vaginal bleeding, hence came to the ED patient claims she soak 2 full pads at home prior to presenting.? Her blood type is A positive. In the emergency room H&H was 14.1/42.2 cc:: CC: CLERK TELEGRAPH SERVICE - Review of Systems Review of Systems ROS Unobtainable: All systems reviewed & are unremarkable except as noted in HPI and below Cardiovascular: Denies Palpatations, Loss of consciousness or Chest pain Respiratory: Denies Cough, Wheezing or Shortness of breath Musculoskeletal: Denies Low back pain Gastrointestinal: Denies Heartburn, Constipation, Diarrhea, Nausea or Vomiting Genitourinary: Denies Pain with urination, Burning with urination or Urinary frequency Neurological: Denies Migranes Psychological: Denies Depression OB PMFSH Past Medical History Medical History Depression Drug abuse IV drug user Surgical History Surgical History History of Social History Social History Household Members: None Housing: Apartment Do you presently have visiting nurse or other home services: No Alcohol intake: never Patient Tobacco Use Status: Current everyday Tobacco user Cigarette Packs Per Day: 1 Cigarettes Per Day: 10 Years Smoked: 16 Second Hand Smoke Exposure: No Use of substances other than those prescribed or required for medical reasons: Yes Substance Use Type: Marijuana Substance Use Type Other:: former IVDA Substance Use Frequency: Daily Are you DNR?: No Advance Directives: No Patient : Yes Meds Allergies Allergy/AdvReac Type Severity Reaction Status Date / Time trazodone [TRAZODONE] AdvReac Severe FACE Verified 01/08/21 20:46 SWELLING, VOMITING Active Medications: Current Medications Sodium Chloride (Ns) 1,000 mls @ 999 mls/hr IV .Q1H1M LAVONNE Stop: 03/19/22 05:00 Home Medications Medication Instructions Recorded Confirmed Last Taken Type No Known Home Meds 08/02/20 08/02/20 Unknown History Medications Medications: Methadone FINANCIAL ADMINISTRATION OFFICER Physical Exam Vitals Vital signs: Temp Pulse Resp BP Pulse Ox O2 Del Method 97.7 F 78 16 105/60 98 03/19/22 03:02 03/19/22 03:02 03/19/22 03:02 03/19/22 03:02 03/19/22 03:02 03/19/22 03:02 BMI result Body Mass Index 35.2 Constitutional General Appearance: Healthy appearing, Well-nourished and Well-developed Psychiatric Mood and Affect: active and alert, normal mood and normal affect Skin Appearance: No rashes and No lesions Lungs Respiratory Effort: No intercostal retractions Auscultation: Clear to auscultation Cardiovascular Auscultation: RRR Abdomen Auscultation/Inspection/Palpation: Normal bowel sounds, Soft, Non-distended and No tenderness Female Genitalia (Pelvic) Exam: Deferred Cervix: Grossly normal Uterus: Enlarged (Around 7-8 weeks) Adnexa/Parametria: Adnexal Tenderness: None, Adnexal Mass: None, Parametrial Tenderness: None and Parametrial Mass: None Additional Comments: With cervix open, blood clots per vagina FINANCIAL ADMINISTRATION OFFICER - Results Labs CBC & Chem 7: 03/19/22 04:45 03/19/22 04:45 Assessment and Plan (1) Incomplete : Status: Acute Plan GC and chlamydia taken. Discussed with the patient the result of the ultrasound showing no FHR, the options of the treatment discussed with the patient including medical treatment , suction D&C, all pros, cons, risks and benefits were discussed with the patient and the patient the decided to go ahead with Suction D&C. so a more detailed discussion about the procedure was carried on with the patient including the technique, risks including but not limited to : bleeding, infection, uterine perforation, injury to blood vessels, bowels, ureters, bladder, possible need for blood transfusion with all its risks ( HIV, Hep b or C, anaphylaxis reactions), possible need for laparoscopy, laparotomy, or hysterectomy, possible , thromboembolic events, possibility of a negative impact on future fertility because of scar tissue development inside the uterus; alternatives of this option were discussed with the patient including but not limited to, medical termination of or doing nothing. The patient decided to go ahead with Suction D&C and signed the consent. All questions answered, the patient verbalized understanding and agreed with the plan.Doxycycline 200 mg p.o. preop given to the patient. Ultrasound notified. Type and screen sent. Instructions given the patient to schedule a 2 week postoperative appointment. This note was generated with a voice recognition program. Some errors may have been overlooked during the review of this note. Sometimes these errors may affect the content or meaning of a given sentence.
--- NOTE | 2022-03-19 04:41 | PC.NURSE ---
provider made aware of difficulty in obtaining iv and labs, provider at bedside and pt refused a jugular attempt by the provider. another rn is attempting using ultra sound and no iv at this time. pt is aware of the need and the plan.
[2022-03-19 04:51] LABS: MANUAL DIFF FLAG NO
[2022-03-19 04:52] LABS: Basophils Percent Auto 0.2 % (0-2); Eosinophils Absolute Auto 0.1 X10*3/uL (0.0-0.4); Hematocrit 42.2 % (37.0-47.0); Hemoglobin 14.1 g/dl (12.0-16.0); Imm Gran Abs Auto 0.05 X10*3/uL (0.00-0.03); Imm Gran Pct Auto 0.5 % (0.0-0.4); Lymphocytes Percent Auto 19.6 % (20-40); Mean Corpuscular HGB Conc 33.4 g/dl (31.0-35.0); Mean Corpuscular Hemoglobin 31.8 pg (27.0-33.0); Mean Platelet Volume 10.9 fL (9.4-12.3); Monocytes Absolute Auto 0.7 X10*3/uL (0.1-1.2); Neutrophils Absolute Auto 7.3 x10*3/uL (2.0-8.3); Neutrophils Percent Auto 71.7 % (45-73); Platelet Count 255 X10*3/uL (160-400); Red Blood Count 4.44 X10*6/uL (4.20-5.50); Red Cell Distribution Width 13.2 % (11.0-16.0); White Blood Count 10.2 X10*3/uL (4.8-10.8)
[2022-03-19] MEDS: ondansetron HCL 4 MG/2 ML VIAL IVPUSH (05:05)
[2022-03-19] MEDS: 0.9 % Sodium Chloride 1,000 ML 999 ML IV (05:06)
[2022-03-19 05:08] LABS: Alanine Aminotransferase 52 U/L (0-31); Albumin Level 3.9 g/dL (3.5-5.0); Alkaline Phosphatase 89 U/L (39-117); Anion Gap 13 (12-20); Aspartate Amino Transferase 45 U/L (5-31); Bilirubin Total 0.8 mg/dL (0.0-1.0); Blood Urea Nitrogen 10 mg/dL (9-16); Calcium 9.3 mg/dL (8.4-10.2); Carbon Dioxide 23 mmol/L (22-29); Chloride 105 mmol/L (96-108); Creatinine Clr Calc Pharmacy 107.2; Estimated Glomerular Filt Rate > 60; Glucose Random 89 mg/dL (60-115); Lipase 7 U/L (8-78); Potassium 4.5 mmol/L (3.3-5.1); Sodium 136 mmol/L (135-145); Total Protein 7.5 g/dL (6.5-8.0)
--- NOTE | 2022-03-19 05:12 | PC.NURSE ---
While Dr Baltazar inspected the pt, there were 6 saturated swabs and she passed several large clots. While I was changing her, she saturated one menses pad and passed another large clot. A new pad was applied.
[2022-03-19 05:14] LABS: HCG Quantitative 3875 mIU/mL
--- NOTE | 2022-03-19 05:41 | PC.NURSE ---
bp low provider made aware, pt has had one pad soaked after the examination with clots being removed by provider. cramping is in waves. pt is laying back and has pain intermit.
--- NOTE | 2022-03-19 05:58 | PC.NURSE ---
Verbal order from provider to hang another liter of saline simultaneously with the first. Both liters running at this time. Will continue to monitor pressures.
--- NOTE | 2022-03-19 07:30 | P.CONAN_ITS ---
HPI - Anesthesia Eval Consult details Narrative: Incomplete PMFSH Active Problems Active Problems: All Active Problems (Updated 03/19/22 @ 07:05 by Erickson Hook MD) Incomplete (Acute) Miscarriage (Acute) IV drug user (Acute) Depression (Acute) Tubo-ovarian abscess (Acute) Pelvic inflammatory disease, acute (Acute) Past Medical History Medical History Depression Drug abuse IV drug user Family History Family history of problems with anesthesia: No Surgical History Surgical History History of History of Problems with Anesthesia: No Social History Social History Household Members: None Housing: Apartment Do you presently have visiting nurse or other home services: No Alcohol intake: never Patient Tobacco Use Status: Current everyday Tobacco user Cigarette Packs Per Day: 1 Cigarettes Per Day: 20.0 Years Smoked: 16 Second Hand Smoke Exposure: No Use of substances other than those prescribed or required for medical reasons: Yes Substance Use Type: Marijuana Substance Use Frequency: Occasionally Advance Directives: No Patient : Yes Meds Allergies Allergy/AdvReac Type Severity Reaction Status Date / Time trazodone [TRAZODONE] AdvReac Severe FACE Verified 01/08/21 20:46 SWELLING, VOMITING Home Medications Medication Instructions Recorded Confirmed Last Taken Type No Known Home Meds 08/02/20 08/02/20 Unknown History Exam Exam Date and Time: March 19, 2022 0730 Height,Weight and Vital Signs: Height 5 ft Weight 81.7 kg Last Vital Signs Temp 97.7 F 03/19/22 03:02 Pulse 59 03/19/22 07:09 Resp 14 03/19/22 07:09 BP 95/50 L 03/19/22 07:09 Pulse Ox 98 03/19/22 07:09 O2 Del Method 03/19/22 07:09 Pertinent Lab Results Pertinent Lab Results: Laboratory Tests 03/19/22 03/19/22 03/19/22 04:45 04:45 04:45 WBC 10.2 RBC 4.44 Hgb 14.1 Hct 42.2 MCV 95.0 MCH 31.8 MCHC 33.4 RDW 13.2 Plt Count 255 MPV 10.9 Immature Gran % (Auto) 0.5 H Neut % (Auto) 71.7 Lymph % (Auto) 19.6 L [place] % (Auto) 7.0 Eos % (Auto) 1.0 Baso % (Auto) 0.2 Lymph # (Auto) 2.0 [place] # (Auto) 0.7 Eos # (Auto) 0.1 Baso # (Auto) 0.0 Abs Immat Gran (auto) 0.05 H Absolute Neuts (auto) 7.3 Absolute Nucleated RBC 0.000 Nucleated RBC % (auto) 0.0 Sodium 136 Potassium 4.5 Chloride 105 Carbon Dioxide 23 Anion Gap 13 BUN 10 Creatinine 0.70 Estim Creat Clear Calc 107.2 Estimated GFR > 60 Random Glucose 89 Calcium 9.3 Total Bilirubin 0.8 AST 45 H ALT 52 H Alkaline Phosphatase 89 D Total Protein 7.5 Albumin 3.9 Lipase 7 L Beta HCG, Quant 3875 Blood Type Antibody Screen 03/19/22 04:45 WBC RBC Hgb Hct MCV MCH MCHC RDW Plt Count MPV Immature Gran % (Auto) Neut % (Auto) Lymph % (Auto) [place] % (Auto) Eos % (Auto) Baso % (Auto) Lymph # (Auto) [place] # (Auto) Eos # (Auto) Baso # (Auto) Abs Immat Gran (auto) Absolute Neuts (auto) Absolute Nucleated RBC Nucleated RBC % (auto) Sodium Potassium Chloride Carbon Dioxide Anion Gap BUN Creatinine Estim Creat Clear Calc Estimated GFR Random Glucose Calcium Total Bilirubin AST ALT Alkaline Phosphatase Total Protein Albumin Lipase Beta HCG, Quant Blood Type A Positive Antibody Screen NEGATIVE Airway Mallampati Class: II TM Dist: >3cm Neck ROM: Full Loose/Missing/Broken Teeth: No Heart: rrr +[id number] Lungs: cta b/l Assessment and Plan Assessment Anesthesia Assessment: Anesthesia Plan Discussed and Chart Reviewed Final Anesthetic Review Family History of Problems with Anesthesia: No History of Problems with Anesthesia: No NPO: Yes ASA Class: II Final Preanesthetic Review: No Changes in Pt Med Stat, Meds/Allgs Chart Reviewed, Consent Obtained/Reviewed and Anes Risks/Benef Reviewed Patient Risk: Intermediate Procedure Risk: Intermediate Assessment/Block/Sedation in SS: Assess/Block/Sedation-SS Anesthetic Plan Anesthetic Plan: MAC: and Agree w/ Assess. and Plan Disposition: Standard PACU
[2022-03-19 07:41] LABS: COVID-19 Test Negative (Negative); IDNOW Serial# 16C4AD1C
--- NOTE | 2022-03-19 07:59 | PC.NURSE ---
Patient refused referral to case management
--- NOTE | 2022-03-19 08:32 | PM.OP ---
Brief Operative Note Date of Service: 03/19/22 Pre-op diagnosis: Incomplete Post-op diagnosis: same Procedure: Suction D&C under ultrasound guidance Surgeon: Erickson Hook MD Anesthesia: MAC Was an Apartment Property Manager used for this Procedure?: No Estimated blood loss (mL): 20 Pathology: other (Products of conception) Condition: stable Disposition: PACU
--- NOTE | 2022-03-19 08:33 | W.PM.OPN ---
Operative Note Operative Note Date of Service: 11/24/20 Narrative: Preop diagnosis: Incomplete Operation: suction D and C under ultrasound guidance Postop diagnosis: The same EBL: Minimal, 20 cc Anesthesia: MAC Electrical Troubleshooter: None Pathology: Products of conception Procedure: The patient was put in a dorsal distal mid position was scrubbed and draped in the usual sterile fashion. A sterile speculum was inserted inside the patient's vagina the anterior lip of the cervix was grasped with single-tooth tenaculum the cervix was dilated up to 8 mm. Under ultrasonographic guidance flexible 8. Suction tip was introduced inside the patient ran cavity till the fundus was hit then turning the suction 360 degrees around products of conception was sucked out toward the uterine cavity. The suction tip was taken out of the patient uterine cavity sharp curettings was followed in 4 quadrants of the uterus till a gritty feeling was felt. The suction tip was reintroduced under ultrasonographic guidance and intrauterine blood was sucked. The suction tip was taken out. Ultrasound showed thin endometrium and no evidence of retained products of conception. Single-tooth tenaculum was removed hemostasis assured using pressure. The patient tolerated the procedure well and was transferred to the PACU in a stable condition.
[2022-03-19] MEDS: oxyCODONE HCl Immed Release 5 MG TABLET 10 MG PO (09:59)
[2022-03-19] MEDS: Acetaminophen 325 MG TABLET 650 MG PO (09:59)
== END 2022-03-19 12:55 | disposition home or self-care (01) ==
LOC: HO.ED 07:05 → HO.SSS 08:36
PROVIDERS: Anesthesiology; Emergency Provider Emergency Medicine Emergency Medical Services; Visit Provider Obstetrics & Gynecology
PROC: (CPT 59812; principal; 2022-03-19 07:30)
DX: O03.4 Incomplete spontaneous abortion without complication (principal); F19.10 Other psychoactive substance abuse, uncomplicated; F32.A Depression, unspecified; F17.210 Nicotine dependence, cigarettes, uncomplicated; F12.90 Cannabis use, unspecified, uncomplicated; Z20.822 Contact with and (suspected) exposure to COVID-19; Z98.891 History of uterine scar from previous surgery; Z88.8 Allergy status to other drugs, medicaments and biological substances
CPT/HCPCS: 59812; 36415; 76815; 80053; 83690; 84702; 85025; 86850; 86900; 86901; 87635; 88305; 96361; 96374; 99285; J2250; J2405; J2590; J3010

== ENCOUNTER 2022-05-13 19:06 | Emergency (ER) | payer MEDICAID, SELFPAY ==
[2022-05-13 19:22] VITALS: BP 136/88; PULSE 98; RESP 18; TEMP 36.7; O2SAT 97; BMI 35.2
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
== END 2022-05-13 20:07 | disposition home or self-care (01) ==
PROVIDERS: Emergency Provider Emergency Medicine; PCP Internal Medicine
DX: L03.113 Cellulitis of right upper limb (principal); S60.511A Abrasion of right hand, initial encounter; Y04.1XXA Assault by human bite, initial encounter; Y93.9 Activity, unspecified; Y92.9 Unspecified place or not applicable; Y99.9 Unspecified external cause status; F17.210 Nicotine dependence, cigarettes, uncomplicated; F12.90 Cannabis use, unspecified, uncomplicated
CPT/HCPCS: 99283

== ENCOUNTER 2022-11-11 10:17 | Emergency (ER) | payer MEDICAID, SELFPAY ==
[2022-11-11 10:27] VITALS: BP 126/78; PULSE 104; RESP 16; TEMP 36.7; O2SAT 96; BMI 27.3
== END 2022-11-11 11:31 | disposition left against medical advice (07) ==
PROVIDERS: Emergency Provider Emergency Medicine; PCP Internal Medicine
DX: N64.4 Mastodynia (principal); N63.20 Unspecified lump in the left breast, unspecified quadrant
CPT/HCPCS: 99281

== ENCOUNTER 2023-03-21 12:41 | Emergency (ER) | payer MEDICAID, SELFPAY ==
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
--- NOTE | 2023-03-21 13:32 | ECG_ITS ---
Test Reason : LIGHT HEADEDNESS Blood Pressure : / mmHG Vent. Rate : 075 BPM Atrial Rate : 075 BPM P-R Int : 112 ms QRS Dur : 074 ms QT Int : 402 ms P-R-T Axes : 059 056 044 degrees QTc Int : 448 ms Normal sinus rhythm Normal ECG When compared with ECG of 03-JUN-2020 02:51, No significant change was found Referred By: Alexa Trent Electronically Signed By:RC GALARZA MD
[2023-03-21 14:02] VITALS: BP 112/71; PULSE 84; RESP 16; TEMP 36.3; O2SAT 98; BMI 27.3
== END 2023-03-21 22:30 | disposition left against medical advice (07) ==
PROVIDERS: Emergency Provider Emergency Medicine; PCP Internal Medicine
DX: R10.12 Left upper quadrant pain (principal); M54.50 Low back pain, unspecified; M79.10 Myalgia, unspecified site; R42 Dizziness and giddiness; F17.200 Nicotine dependence, unspecified, uncomplicated; Z71.6 Tobacco abuse counseling
CPT/HCPCS: 93005; 99283

== ENCOUNTER → 2023-03-21 13:32 | Outpatient (BNV) | payer MEDICAID, SELFPAY | PROVIDERS: Emergency Provider Emergency Medicine; PCP Internal Medicine; Visit Provider Internal Medicine Cardiovascular Disease | DX: R42 Dizziness and giddiness (principal) | CPT/HCPCS: 93010 ==

== ENCOUNTER 2023-11-16 10:09 | Emergency (ER) | payer MEDICAID, SELFPAY ==
[2023-11-16 10:21] VITALS: BP 133/79; PULSE 77; RESP 18; TEMP 36.6; O2SAT 98; BMI 29.9
--- NOTE | 2023-11-16 13:32 | PC.NURSE ---
Addendum entered by Young De Guzman 11/16/23 15:49: Spoke w Natalie @ [facility] to annita methadone dosing - pt picked up 9 take home vials 11/12/23 at 0626. pt takes 70mg in the morning and 70 mg at night. per pt she went to the clinic today and showed them that her last two doses had leaked and they advised that she came to the ED for dosing. last dose 11/15/23 @ 1930. plan to go to [facility] to p/u next doses tomorrow morning. methadone verification filled out and faxed to pharmacy. Original Note: attempting to verify methadone dose: per Natalie at [facility], MAT verification, last dosed this morning (11/16/23) w 3 vials of methadone - pt gets 70mg am and 70mg pm with an additional vial for tomorrow morning. unclear time of dosing per Abbie [facility] to call back w dosing time
[2023-11-16 15:13] VITALS: BP 116/79; PULSE 96; RESP 18; TEMP 36.6; O2SAT 100
--- NOTE | 2023-11-16 15:36 | ED.GENADULT ---
HPI - General Adult General Chief complaint: General Medical Stated complaint: Methadone dose Time Seen by Provider: 11/16/23 15:19 Source: patient and RN notes reviewed Mode of arrival: ambulatory Limitations: no limitations History of Present Illness HPI narrative: This is a 38-year-old female, with a history of opioid use disorder on methadone, presenting to the emergency department for methadone dosing. Patient states that she typically gets take home methadone dosing however states that this morning she noticed that her methadone doses for today were leaking. She states that she went to her methadone clinic to tell him of this however states that they were unable to override her medication to give her a to new doses and was told to come to the emergency room. Patient states that she typically takes methadone 70 mg twice a day. She reports that she feels and slight withdrawal, reporting body aches. She reports that she is otherwise feeling well, no fevers, chills, chest pain, dizziness, blurred vision, headaches, abdominal pain, nausea, vomiting or diarrhea. No other complaints or concerns at this time. MD complaint: Methadone dose Associated symptoms: denies other symptoms Treatments prior to arrival: none Related Data Previous Rx's Medication Instructions Recorded amoxicillin 875 mg-potassium 1 tab PO BID #14 tabs 05/13/22 clavulanate 125 mg tablet Allergies Allergy/AdvReac Type Severity Reaction Status Date / Time trazodone [TRAZODONE] AdvReac Severe FACE Verified 11/16/23 10:20 SWELLING, VOMITING Review of Systems Review of Systems: Yes all other systems are reviewed and are negative PMFSH Past Medical History Medical History IV drug user Depression Drug abuse Surgical History History of Social History Social History Household Members: None Housing: Apartment Do you presently have visiting nurse or other home services: No Alcohol intake: never Comment: pt sleeping Patient Tobacco Use Status: Current everyday Tobacco user Cigarette Packs Per Day: 1 Cigarettes Per Day: 10 Years Smoked: 16 Second Hand Smoke Exposure: No Substance Use Type: Marijuana Advance Directives: No Advance Directives Information Provided: No Physical Exam ED Vital Signs: Vital Signs - 24 hr 11/16/23 10:21 11/16/23 15:13 Temperature 98 F 97.9 F Pulse Rate 77 96 Respiratory Rate 18 18 Blood Pressure 133/79 116/79 Pulse Oximetry 98 100 Oxygen Delivery Method Room Air Room Air BMI result Body Mass Index 29.9 Const Other: General: Awake, alert, and oriented X3. No acute distress. HEENT: Normal inspection CVS: Normal heart rate and rhythm. Pulses normal. Respiratory: No respiratory distress Skin: Warm, dry, no rashes noted to exposed skin. Normal skin color. Normal skin turgor. Extremities: Normal to inspection Neuro: Oriented X 3. No motor deficit. No sensory deficit. Medications Administered Discontinued Medications Generic Name Dose Route Start Last Admin Trade Name Freq PRN Reason Stop Dose Admin Methadone HCl 70 mg 11/16/23 15:46 11/16/23 16:13 Methadone Hcl 20 Mg/2 Ml Oral.Conc PO 11/16/23 15:47 70 mg ONCE ONE Administration Medical Decision Making Medical Decision Making MDM Narrative: This is a 38-year-old female, with a history of opioid use disorder on methadone, presenting to the emergency department for methadone dosing. On arrival, vital signs within normal limits. She is nontoxic appearing and speaking in full sentences. Sitting staff was able to call over to the clinic and confirm dosing. Patient typically gets methadone 70 mg twice a day. I educated patient that we are able to dose her with a 1 time dose of methadone 70 mg. She understands and agrees with this plan. She will follow-up with her methadone clinic tomorrow morning. Patient stable for discharge after receiving 1 time dose. Differential Diagnosis Differential Diagnoses: The differential diagnosis associated with the presentation includes Opioid use disorder, opioid dependence, methadone dosing Social Determinants Patient?s care significantly limited by Social Determinants of Health including: Alcoholism and drug addiction in family Discharge Plan Discharge Clinical Impression: Methadone dependence Patient Disposition: Home, Self-Care Instructions: Narcotic Use Disorder (ED) Additional Instructions: You received methadone 70 mg by mouth today in the emergency room. Please follow-up with your behavioral health specialist. If any new or worsening symptoms occur including but not limited to chest pain or shortness breast, please return for re-evaluation. Prescriptions: No Action amoxicillin-pot clavulanate 875-125 mg tablet 1 tab PO BID Qty: 14 0RF Interventions: ED Discharge Assessment Last Done: 03/10/24 16:32 Discharge Date/Time: 11/16/23 16:34
[2023-11-16] MEDS: methADONE HCl 20 MG/2 ML ORAL.CONC 70 MG PO (16:13)
--- NOTE | 2023-11-16 16:14 | PC.NURSE ---
medicated per MAR.
--- NOTE | 2023-11-16 16:33 | PC.NURSE ---
last dose letter given to pt.
== END 2023-11-16 16:34 | disposition home or self-care (01) ==
PROVIDERS: Emergency Provider Student in an Organized Health Care Education/Training Program; PCP Internal Medicine
DX: F11.20 Opioid dependence, uncomplicated (principal)
CPT/HCPCS: 99282; 99283

== ENCOUNTER 2023-11-19 04:50 | Emergency (ER) | payer MEDICAID, SELFPAY ==
--- NOTE | ~2023-11-19 | XR_ITS ---
EXAMINATION: XR FINGER RIGHT XR HAND LEFT CLINICAL INFORMATION: Osteomyelitis index finger left hand. Osteomyelitis middle finger of right hand. COMPARISON: None TECHNIQUE: Left hand, 3 views Right middle finger, oblique and lateral views. Also, PA view of the right hand is obtained. FINDINGS: Left hand: Bones have normal density and alignment in the hand and wrist. The joint spaces are normal. No erosions or periostitis. There is a soft tissue wound at the volar and radial aspect of the distal index finger. Soft tissues are mildly swollen. No deep soft tissue gas or radiopaque foreign body. Right finger exam: Bones have normal density and alignment in the hand or wrist. Joint spaces are normal. No erosions or periostitis. There is a soft tissue wound at the volar, radial aspect of the third digit. The wound is at the level of the head of the middle phalanx but on the various radiographic projections, there is no visible deep extension of the wound to the surface of bone. Soft tissues are swollen. XR/XR hand LT 2V IMPRESSION: * There are soft tissue wounds in each hand and associated soft tissue swelling. * No radiographic evidence of osteomyelitis or septic arthritis.
--- NOTE | ~2023-11-19 | XR_ITS ---
EXAMINATION: XR FINGER RIGHT XR HAND LEFT CLINICAL INFORMATION: Osteomyelitis index finger left hand. Osteomyelitis middle finger of right hand. COMPARISON: None TECHNIQUE: Left hand, 3 views Right middle finger, oblique and lateral views. Also, PA view of the right hand is obtained. FINDINGS: Left hand: Bones have normal density and alignment in the hand and wrist. The joint spaces are normal. No erosions or periostitis. There is a soft tissue wound at the volar and radial aspect of the distal index finger. Soft tissues are mildly swollen. No deep soft tissue gas or radiopaque foreign body. Right finger exam: Bones have normal density and alignment in the hand or wrist. Joint spaces are normal. No erosions or periostitis. There is a soft tissue wound at the volar, radial aspect of the third digit. The wound is at the level of the head of the middle phalanx but on the various radiographic projections, there is no visible deep extension of the wound to the surface of bone. Soft tissues are swollen. XR/XR finger RT min 2V IMPRESSION: * There are soft tissue wounds in each hand and associated soft tissue swelling. * No radiographic evidence of osteomyelitis or septic arthritis.
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
[2023-11-19 06:35] VITALS: BMI 25.0
[2023-11-19 06:42] VITALS: BP 100/61; PULSE 83; RESP 16; TEMP 36.7; O2SAT 98
[2023-11-19 08:01] VITALS: BP 106/61; PULSE 78; RESP 16; TEMP 36.9; O2SAT 98
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
[2023-11-19 09:52] LABS: Appearance Urine Clear; Color Urine Dark Yellow; Glucose Urine UA Negative (Negative); Leukocyte Esterase Urine Trace (Negative); Nitrite Urine Negative (Negative); PH 5.5 (5.0-9.0); Specific Gravity - Urine 1.025 (1.005-1.025); UMIC TRIGGER UACC YES; Urine Blood Large (3+) (Negative); Urine Ketones Negative (Negative); Urine Protein Trace mg/dL (Neg-Trace)
[2023-11-19 09:55] LABS: Bacteria Urine None Seen (None Seen); Hyaline Casts Urine 0-2 /LPF (0-2); RBC Urine >20 /HPF (0-2); UACC Culture Trigger YES
--- NOTE | 2023-11-19 10:00 | PC.NURSE ---
urine obtained/sent to lab. pt provided w/ coffee that she had requested. manager disaster recovery bedside for pt at this time.
[2023-11-19 10:07] LABS: Amphetamine Screen Urine Not Detected (Not Detect); Barbiturates, Urine Not Detected (Not Detect); Cannabinoid Screen Urine Not Detected (Not Detect); Cocaine Screen Urine POSITIVE (Not Detect); Fentanyl, urine POSITIVE (Not Detect); Opiate Screen Urine POSITIVE (Not Detect); Phencyclidine Screen Urine Not Detected (Not Detect)
[2023-11-19 10:10] LABS: Benzodiazepines Screen Urine Not Detected (Not Detect)
[2023-11-19] MEDS: methADONE HCl 20 MG/2 ML ORAL.CONC 30 MG PO (10:57)
--- NOTE | 2023-11-19 10:58 | PC.NURSE ---
pt medicated per provider order.
[2023-11-19 11:01] VITALS: BP 104/68; PULSE 82; RESP 16; O2SAT 98
--- NOTE | 2023-11-19 11:03 | PC.NURSE ---
pt provided w/ last dose letter and toxicology report. pt leaving ED w/ oil recovery unit operator at this time.
== END 2023-11-19 11:03 | disposition home or self-care (01) ==
PROVIDERS: Registered Nurse Emergency; Emergency Provider Emergency Medicine
DX: M79.642 Pain in left hand (principal); G89.4 Chronic pain syndrome; Z79.899 Other long term (current) drug therapy
CPT/HCPCS: 73120; 73140; 80307; 81001; 87086; 99283; 99284

== ENCOUNTER 2024-01-01 20:54 | Inpatient (IN) | payer OTHER, SELFPAY ==
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
[2024-01-01 21:17] VITALS: BP 123/79; BP 160/100; PULSE 78; PULSE 80; RESP 20; TEMP 36.8; O2SAT 100; BMI 31.6
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
[2024-01-01] MEDS: Acetaminophen 325 MG TABLET 975 MG PO (21:52)
[2024-01-01] MEDS: Sulfamethox/Trimeth 800/160 TABLET 1 TAB PO (21:52)
--- NOTE | 2024-01-01 21:56 | MHC.EDTECH ---
PATIENT STATED SHE IS A HARD STICK AND NEED UNTRA SOUND TO GET HER LABS ,RN AWARE .
[2024-01-01 22:14] VITALS: BP 110/68; PULSE 79; RESP 16; TEMP 36.6; O2SAT 98
--- NOTE | 2024-01-01 22:16 | MHC.EDTECH ---
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
[2024-01-01 22:35] LABS: Amphetamine Screen Urine Not Detected (Not Detect); Barbiturates, Urine Not Detected (Not Detect); Benzodiazepines Screen Urine Not Detected (Not Detect); Buprenorphine Scr Not Detected (Not Detect); Cannabinoid Screen Urine POSITIVE (Not Detect); Cocaine Screen Urine POSITIVE (Not Detect); Fentanyl, urine POSITIVE (Not Detect); Methadone Screen, Urine Positive (Not Detect); Opiate Screen Urine POSITIVE (Not Detect); Oxycodone Screen Urine Not Detected (Not Detect); Phencyclidine Screen Urine Not Detected (Not Detect)
[2024-01-01 22:38] LABS: MANUAL DIFF FLAG NO
[2024-01-01 22:39] LABS: Basophils Percent Auto 0.3 % (0-2); Eosinophils Absolute Auto 0.5 X10*3/uL (0.0-0.4); Hematocrit 39.7 % (37.0-47.0); Imm Gran Abs Auto 0.03 X10*3/uL (0.00-0.03); Imm Gran Pct Auto 0.3 % (0.0-0.4); Lymphocytes Absolute Auto 2.6 X10*3/uL (1.2-4.9); Lymphocytes Percent Auto 25.7 % (20-40); Mean Corpuscular HGB Conc 32.7 g/dl (31.0-35.0); Mean Corpuscular Hemoglobin 29.7 pg (27.0-33.0); Mean Corpuscular Volume 90.8 fL (80.0-98.0); Mean Platelet Volume 9.8 fL (9.4-12.3); Monocytes Absolute Auto 0.5 X10*3/uL (0.1-1.2); Monocytes Percent Auto 5.4 % (2-11); Neutrophils Absolute Auto 6.3 x10*3/uL (2.0-8.3); Neutrophils Percent Auto 63.3 % (45-73); Platelet Count 341 X10*3/uL (160-400); Red Blood Count 4.37 X10*6/uL (4.20-5.50); Red Cell Distribution Width 13.4 % (11.0-16.0); White Blood Count 9.9 X10*3/uL (4.8-10.8)
[2024-01-01 23:04] LABS: Alanine Aminotransferase 64 U/L (0-31); Albumin Level 3.5 g/dL (3.5-5.0); Alkaline Phosphatase 77 U/L (39-117); Anion Gap 10 (12-20); Aspartate Amino Transferase 59 U/L (5-31); Bilirubin Direct 0.2 mg/dL (0.0-0.5); Bilirubin Total 0.3 mg/dL (0.0-1.0); Blood Urea Nitrogen 7 mg/dL (9-16); Calcium 8.9 mg/dL (8.4-10.2); Carbon Dioxide 27 mmol/L (22-29); Chloride 107 mmol/L (96-108); Creatinine Clr Calc Pharmacy 91.5; Estimated Glomerular Filt Rate > 60; Ethanol < 10 mg/dL; Glucose Random 118 mg/dL (60-115); HCG Quantitative < 2 mIU/mL; Potassium 3.6 mmol/L (3.3-5.1); Sodium 140 mmol/L (135-145); Total Protein 7.6 g/dL (6.5-8.0)
--- NOTE | 2024-01-01 23:10 | PC.NURSE ---
verbal report given Claudia JOHNSON in psych
--- NOTE | 2024-01-01 23:25 | PC.NURSE ---
pt transferred to the POD for further evaluation
--- NOTE | 2024-01-01 23:28 | PC.NURSE ---
client received in the pod, soon after getting into room asked for blanket
--- NOTE | 2024-01-02 | ECG_ITS ---
Test Reason : PROLONGED QT Blood Pressure : / mmHG Vent. Rate : 071 BPM Atrial Rate : 071 BPM P-R Int : 120 ms QRS Dur : 074 ms QT Int : 394 ms P-R-T Axes : 066 069 056 degrees QTc Int : 428 ms Normal sinus rhythm Nonspecific T wave abnormality Abnormal ECG When compared with ECG of 21-MAR-2023 13:56, No significant change was found Referred By: Bianca North Electronically Signed By:RC GALARZA MD
--- NOTE | 2024-01-02 06:51 | HE.PHANOTE ---
RE: METHADONE DOSE Last dose of methadone 50 mg was given on 01/01/24 @1101 at [facility] per Kika (nursing staff).
--- NOTE | 2024-01-02 07:08 | PC.NURSE ---
Assumed care of patient at 0645. At this time the patient is resting quietly in bed. Patient is on a section 12 with an inpatient bed search. Will continue plan of care.
[2024-01-02 07:14] VITALS: BP 115/56; PULSE 63; RESP 14; TEMP 36.3; O2SAT 99
[2024-01-02 08:30] LABS: COVID-19 Test Negative (Negative); IDNOW Serial# 08D9AD1C
[2024-01-02] MEDS: methADONE HCl 20 MG/2 ML ORAL.CONC 50 MG PO (09:40)
[2024-01-02 13:29] LABS: Appearance Urine Turbid; Color Urine Dark Yellow; Glucose Urine UA Negative (Negative); Leukocyte Esterase Urine Small (1+) (Negative); Nitrite Urine Negative (Negative); Specific Gravity - Urine >= 1.030 (1.005-1.025); UMIC TRIGGER UACC YES; Urine Blood Negative (Negative); Urine Ketones Trace mg/dL (Negative); Urine Protein Trace mg/dL (Neg-Trace)
[2024-01-02 13:43] LABS: Bacteria Urine 1+ (None Seen); Calcium Oxalate Crystals Urine Present; Hyaline Casts Urine 0-2 /LPF (0-2); RBC Urine 0-2 /HPF (0-2); UACC Culture Trigger YES
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
[2024-01-02 20:45] VITALS: BP 112/58; PULSE 63; TEMP 36.6
[2024-01-03 08:30] VITALS: BP 132/66; PULSE 74; RESP 16; TEMP 36.8; O2SAT 100
[2024-01-03] MEDS: methADONE HCl 20 MG/2 ML ORAL.CONC 50 MG PO (08:40)
[2024-01-03] MEDS: Sertraline HCL 25 MG TABLET PO (13:38)
[2024-01-03 19:53] VITALS: BP 130/73; PULSE 65; RESP 16; TEMP 36.3; O2SAT 97
[2024-01-03] MEDS: methADONE HCl 20 MG/2 ML ORAL.CONC 5 MG PO (20:05)
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
[2024-01-04] MEDS: methADONE HCl 20 MG/2 ML ORAL.CONC 60 MG PO (08:29)
[2024-01-04] MEDS: Sertraline HCL 50 MG TABLET PO (08:29)
[2024-01-04 08:54] VITALS: BP 108/51; PULSE 72; RESP 16; TEMP 37.3; O2SAT 97
--- NOTE | 2024-01-04 09:23 | P.PNPSI_ITS ---
Subjective Subjective Date of Service: 01/04/24 Reason For Visit: suicidal ideations Interim History: Patient feels better rested. Her cellulitis is improving. Bacrtim DS was ordered in ED however wasn't continued on admission to the unit. Reordered x 1 week. Patient tolerating start of Zoloft. Denies side effects. Intermittently visible on the unit but isolative to self. [facility] to [facility]. Helpless and hopeless. Denies SI. Review of Systems Review of Systems Constitutional : No Weight loss, No Fever, No Chills, No Night Sweats, No Fatigue, No Malaise ENT/Mouth : No Hearing loss, No Ear Pain, No Nasal Congestion, No Sinus Pain, No Hoarseness, No sore throat, No Rhinorrhea, No Swallowing Difficulty Eyes: No Eye Pain, No Swelling, No Redness, No Foreign Body, No Discharge, No Vision Changes Cardiovascular : No Chest Pain, No SOB, No Dyspnea on Exertion, No Orthopnea, No Edema, No Palpitations Respiratory : No Cough, No Sputum, No Wheezing, No Smoke Exposure, No Dyspnea Gastrointestinal : No Nausea, No Vomiting, No Diarrhea, No Constipation, No abdominal Pain, No Hematochezia, No Melena Genitourinary : no irregular bleeding, No Dysuria, No Urinary Frequency, No Hematuria, No Urinary Incontinence, No Urgency, No Flank Pain, No Urinary Flow Changes, No Hesitancy Musculoskeletal : Left rib pain Skin : Complaining of cellulitis in the left ankle Neuro : No Weakness, No Numbness, No Paresthesias, No Loss of Consciousness, No Dizziness, No Headache Psych : No Anxiety/Panic, complaining of depression, suicidal thoughts with no plan, no HI, admits to polysubstance abuse Heme/Lymph: No Bruising, No Bleeding,No Lymphadenopathy Endocrine : No Polyuria, No Polydipsia, No Temperature Intolerance Mental Status Exam Mental Status Exam Patient Appearance: Fatigued Patient Orientation: Person, Place, Time and Situation Level of Consciousness: Awake, Alert and Follows Commands Patient Behavior: Dependent, Cooperative, Timid, Anxious, Crying and Poor Eye Contact Mood Description: Withdrawn, Depressed and Sad Affect Description: Withdrawn, Depressed and Sad Ability to Follow Directions: Good Speech Pattern: Clear, Spontaneous Speech and Soft-Spoken Diagnostics Vital Signs (24Hr): Vital Signs - 24 hr 01/03/24 19:53 01/04/24 08:54 Temperature 97.4 F 99.1 F Pulse Rate 65 72 Respiratory Rate 16 16 Blood Pressure 130/73 108/51 L Pulse Oximetry 97 97 Oxygen Delivery Method Room Air Room Air BMI result Body Mass Index 31.6 Labs 01/01/24 22:34 01/01/24 22:34 Labs: Laboratory Results - last 48 hr 01/01/24 22:18 Urine Color Dark Yellow Urine Appearance Turbid Urine pH 6.0 Ur Specific [place] >= 1.030 H Urine Protein Trace Urine Glucose (UA) Negative Urine Ketones Trace Urine Blood Negative Urine Nitrite Negative Ur Leukocyte Esterase Small (1+) H Urine RBC 0-2 Urine WBC 6-10 Ur Squamous Epith Cells 11-20 Calcium Oxalate Crystal Present Urine Bacteria 1+ Hyaline Casts 0-2 Imaging Radiology Impressions: ITS Impressions Ribs X-Ray 01/01/24 21:42 IMPRESSION: Unremarkable examination. Medications Medications Current Medications Acetaminophen (Acetaminophen 325 Mg Tablet) 650 mg PO Q6H PRN PRN Reason: Headache/Pain Mild Scale (1-3) Al Hydroxide/Mg Hydroxide (Magnesium Hydrox/Alum Hydrox 30 Ml Oral.Susp) 30 ml PO Q6H PRN PRN Reason: Heartburn/Nausea Hydroxyzine HCl (Hydroxyzine Hcl 25 Mg Tablet) 25 mg PO Q6H PRN PRN Reason: Anxiety Magnesium Hydroxide (Milk Of Magnesia 30 Ml Oral.Susp) 30 ml PO DAILY PRN PRN Reason: Constipation Methadone HCl (Methadone Hcl 20 Mg/2 Ml Oral.Conc) 60 mg PO DAILY [facility] Last Admin: 01/04/24 08:29 Dose: 60 mg Nicotine Polacrilex (Nicotine Polacrilex 2 Mg Gum) 2 mg BUCCAL Q2H PRN PRN Reason: Nicotine Cravings Sertraline HCl (Sertraline Hcl 50 Mg Tablet) 50 mg PO DAILY [facility] Last Admin: 01/04/24 08:29 Dose: 50 mg Allergies Allergies Allergy/AdvReac Type Severity Reaction Status Date / Time trazodone [TRAZODONE] AdvReac Severe FACE Verified 01/01/24 21:19 SWELLING, VOMITING Assessment & Plan Assessment & Plan (1) Depression: Status: Acute Code(s): F32.A - Depression, unspecified (2) Polysubstance abuse: Status: Acute Code(s): F19.10 - Other psychoactive substance abuse, uncomplicated Assessment and Plan: 38 yo patient with history of polysubstance depenence and depression presents with SI and relapse on drugs. She recently was [place] from a [place] [facility] [place]. She recently gave to her 6th child 2 months ago. Plan - Admit to inpatient psychiatry - CV - Collateral information from family and providers. - Milieu treatment and group therapy. - Medications: Restart Zoloft 25 mg today and starting 50 mg daily tomorrow. - Social work evaluation. - Disposition planning. 01/03: Ordered Bactrim for cellulitis. Otherwise, continue current management and treatment plan. Monitor response to Zoloft. Aftercare planning. Reason for continued inpatient stay Substantial Risk for: harm to self, inability to function and rapid decompensation Time Spent With Patient Time: Total time managing care of this patient today ____ minutes.
[2024-01-04] MEDS: Sulfamethox/Trimeth 800/160 TABLET 1 TAB PO ×2 (11:16→20:52)
[2024-01-04] MEDS: Acetaminophen 325 MG TABLET 650 MG PO (15:20)
[2024-01-04] MEDS: Benzocaine 20 % Oral Gel 9 GM TUBE 1 APPL MUCOUS MEM (15:21)
[2024-01-04 20:00] VITALS: BP 109/63; PULSE 55; RESP 18; TEMP 36.7; O2SAT 99
[2024-01-05 08:00] VITALS: BP 108/60; PULSE 68; RESP 18; TEMP 37.2; O2SAT 98
[2024-01-05] MEDS: Sertraline HCL 50 MG TABLET PO (08:09)
[2024-01-05] MEDS: methADONE HCl 20 MG/2 ML ORAL.CONC 60 MG PO (08:10)
[2024-01-05] MEDS: Acetaminophen 325 MG TABLET 650 MG PO ×2 (08:13→18:37)
--- NOTE | 2024-01-05 10:03 | P.PNPSI_ITS ---
Subjective Subjective Date of Service: 01/05/24 Reason For Visit: suicidal ideations Interim History: met with patient; discussed with team pt says she's depressed, but doing a little better than on admission and glad to be back on Zoloft. Feeling nausea which she says typically happens when starting Zoloft but goes away in a few days and is tolerable. No more SI. Trouble sleeping and allergy to Trazodone; pt says Seroquel has worked for insomnia and also as a prn; reviewed risks/side-effects and pt agrees to try Clonidine for anxiety to see if it can work instead of seroquel. Mental Status Exam Mental Status Exam Narrative: Pt is alert and oriented; behavior is cooperative, calm; patient is not in distress; dressed in hospital attire; unkempt; mood is described as depressed and affect congruent; downcaste; eye contact avoidant; Speech is normal rate, volume and prosody and not pressured; psychomotor retardation present; thought process is organized and goal directed; Thought content is on tx; otherwise pertinent to relevant topics and without any delusional content, paranoid ideations or grandiosity; denies any SI/HI. There is no evidence of perceptual disturbance. Patients insight and judgment impaired, but improving. Diagnostics Vital Signs (24Hr): Vital Signs - 24 hr 01/04/24 20:00 01/05/24 08:00 Temperature 98.0 F 98.9 F Pulse Rate 55 68 Respiratory Rate 18 18 Blood Pressure 109/63 108/60 Pulse Oximetry 99 98 Oxygen Delivery Method Room Air Room Air BMI result Body Mass Index 31.6 Labs 01/01/24 22:34 01/01/24 22:34 Imaging Radiology Impressions: ITS Impressions Ribs X-Ray 01/01/24 21:42 IMPRESSION: Unremarkable examination. Medications Medications Current Medications Acetaminophen (Acetaminophen 325 Mg Tablet) 650 mg PO Q6H PRN PRN Reason: Headache/Pain Mild Scale (1-3) Last Admin: 01/05/24 08:13 Dose: 650 mg Al Hydroxide/Mg Hydroxide (Magnesium Hydrox/Alum Hydrox 30 Ml Oral.Susp) 30 ml PO Q6H PRN PRN Reason: Heartburn/Nausea Benzocaine (Benzocaine 20 % Oral Gel 9 Gm Tube) 1 appl MUCOUS MEM QID PRN; Protocol PRN Reason: toothache Last Admin: 01/04/24 15:21 Dose: 1 appl Hydroxyzine HCl (Hydroxyzine Hcl 25 Mg Tablet) 25 mg PO Q6H PRN PRN Reason: Anxiety Magnesium Hydroxide (Milk Of Magnesia 30 Ml Oral.Susp) 30 ml PO DAILY PRN PRN Reason: Constipation Methadone HCl (Methadone Hcl 20 Mg/2 Ml Oral.Conc) 60 mg PO DAILY [facility] Last Admin: 01/05/24 08:10 Dose: 60 mg Nicotine Polacrilex (Nicotine Polacrilex 2 Mg Gum) 2 mg BUCCAL Q2H PRN PRN Reason: Nicotine Cravings Sertraline HCl (Sertraline Hcl 50 Mg Tablet) 50 mg PO DAILY [facility] Last Admin: 01/05/24 08:09 Dose: 50 mg Trimethoprim/Sulfamethoxazole (Sulfamethox/Trimeth 800/160 Tablet) 1 tab PO Q12H [facility] Stop: 01/09/24 23:59 Last Admin: 01/04/24 20:52 Dose: 1 tab Allergies Allergies Allergy/AdvReac Type Severity Reaction Status Date / Time trazodone [TRAZODONE] AdvReac Severe FACE Verified 01/01/24 21:19 SWELLING, VOMITING Assessment & Plan Assessment & Plan (1) Depression: Status: Acute Code(s): F32.A - Depression, unspecified (2) Polysubstance abuse: Status: Acute Code(s): F19.10 - Other psychoactive substance abuse, uncomplicated Assessment and Plan: 38 yo patient with history of polysubstance depenence and depression presents with SI and relapse on drugs. She recently was discharged from a assisted. She recently gave to her 6th child 2 months ago. Plan - Admit to inpatient psychiatry - CV - Collateral information from family and providers. - Milieu treatment and group therapy. - Medications: Restart Zoloft 25 mg today and starting 50 mg daily tomorrow. - Social work evaluation. - Disposition planning. 01/03: Ordered Bactrim for cellulitis. Otherwise, continue current management and treatment plan. Monitor response to Zoloft. Aftercare planning. 01/04 pt says she's depressed, but doing a little better than on admission and glad to be back on Zoloft. Feeling nausea which she says typically happens when starting Zoloft but goes away in a few days and is tolerable. No more SI. Trouble sleeping and allergy to Trazodone; pt says Seroquel has worked for insomnia and also as a prn; reviewed risks/side-effects and pt agrees to try Clonidine for anxiety to see if it can work instead of seroquel. Patient educated on: diagnosis and medication risk/benefits Informed Consent: understands Reason for continued inpatient stay Substantial Risk for: rapid decompensation Time Spent With Patient Time: Total time managing care of this patient today ____ minutes.
[2024-01-05] MEDS: Benzocaine 20 % Oral Gel 9 GM TUBE 1 APPL MUCOUS MEM (12:05)
[2024-01-05] MEDS: Sulfamethox/Trimeth 800/160 TABLET 1 TAB PO (12:05)
[2024-01-05] MEDS: Ibuprofen 600 MG TABLET PO ×2 (12:53→18:35)
[2024-01-05 20:00] VITALS: BP 140/74; PULSE 69; RESP 18; TEMP 36.4; O2SAT 97
[2024-01-06] MEDS: Sertraline HCL 50 MG TABLET PO (08:12)
[2024-01-06] MEDS: methADONE HCl 20 MG/2 ML ORAL.CONC 60 MG PO (08:12)
[2024-01-06 08:15] VITALS: BP 116/61; PULSE 70; RESP 18; TEMP 36.6; O2SAT 97
[2024-01-06] MEDS: Benzocaine 20 % Oral Gel 9 GM TUBE 1 APPL MUCOUS MEM ×4 (08:52→22:24)
[2024-01-06] MEDS: Ibuprofen 600 MG TABLET PO ×2 (11:10→17:30)
[2024-01-06] MEDS: Sulfamethox/Trimeth 800/160 TABLET 1 TAB PO (11:10)
--- NOTE | 2024-01-06 13:59 | PM.EVENT ---
Event Note Date of Service: 01/06/24 Event Note: Pt with cellulitis ofL hand r/t IV drug use. Pt reports injecting directly into hand and has multiple healed scars/lesions with an open lesion with surrounding ruptured bulla of palmar surface of L hand. She states there was purulent drainage from the hand this morning. She is afebrile. On exam there is no purulent drainage but slight warmth present. Do not suspect worsening infection. There is no fluctuance or drainage abscess. She has received 4 doses of bactrim which was ordered by her psychiatrist. She did refuse the medication last evening stating she had an upset stomach and some nausea. We discussed that bactrim is a very appropriate antibiotic choice given this covers MRSA and is much less likely to cause GI upset than doxycycline. She otherwise has not had issues with the medication. Would recommend she take the medication with food. Will also give omeprazole 20mg BID for duration of antibiotic treatment x 7 days. Give maalox for dyspepsia should this occur. If dyspepsia persists can try doxycycline but again this is more likely to cause GI upset, nausea, heartburn. Change administration time to with meals. Would not recommend changing to clindamycin nor would I recommend changing to any antibiotic without MRSA coverage. Recommend continuing bactrim. Discussed with patient who agrees. Time Spent With Patient Time: Total time managing care of this patient today ____ minutes.
[2024-01-06] MEDS: Omeprazole 20 MG CAPSULE.DR PO (15:47)
[2024-01-06] MEDS: Acetaminophen 325 MG TABLET 650 MG PO (17:30)
[2024-01-06] MEDS: QUEtiapine Fumarate 25 MG TABLET PO (18:48)
--- NOTE | 2024-01-06 19:17 | HO.PSYCHPN ---
Subjective Subjective Date of Service: 01/06/24 Reason For Visit: suicidal ideations Subjective Notes: Conditional Voluntary Interim History: Pt seen by hospitalist for hand abscess-antibiotics initiated. Reports regime to be taking effect and without SE. Asks for no changes today. Finds milieu supportive and helpful at this time. Hoping for a placement acceptances upon discharge. Medication Compliance: Yes Side effects from medications: No Attending Groups: Intermittent Review of Systems Acute medical concerns: No Medical Review of Systems: unchanged Review of Systems Review of Systems Hand Abscess addressed by hospitalist team. Mental Status Exam Mental Status Exam Patient Appearance: Appropriate Patient Orientation: Person, Place, Time and Situation Level of Consciousness: Alert Patient Behavior: Appropriate, Talkative, Cooperative and Good Eye Contact Mood Description: Apprehensive Affect Description: Apprehensive Patient Cognition Impaired: No Ability to Follow Directions: Good Speech Pattern: Spontaneous Speech Memory Description: Intact Hallucinations: None Delusions: Not Present Thought Process: Goal Oriented Thought Content: positive for Goal Oriented Depressive Symptoms: Increased Anxiety Judgement: Good Diagnostics Vital Signs (24Hr): Vital Signs - 24 hr 01/05/24 20:00 01/06/24 08:15 Temperature 97.5 F 97.8 F Pulse Rate 69 70 Respiratory Rate 18 18 Blood Pressure 140/74 H 116/61 Pulse Oximetry 97 97 Oxygen Delivery Method Room Air Room Air BMI result Body Mass Index 31.6 Labs 01/01/24 22:34 01/01/24 22:34 Imaging Radiology Impressions: ITS Impressions Ribs X-Ray 01/01/24 21:42 IMPRESSION: Unremarkable examination. Medications Medications Current Medications Acetaminophen (Acetaminophen 325 Mg Tablet) 650 mg PO Q6H PRN PRN Reason: Headache/Pain Mild Scale (1-3) Last Admin: 01/06/24 17:30 Dose: 650 mg Al Hydroxide/Mg Hydroxide (Magnesium Hydrox/Alum Hydrox 30 Ml Oral.Susp) 30 ml PO Q6H PRN PRN Reason: Heartburn/Nausea Benzocaine (Benzocaine 20 % Oral Gel 9 Gm Tube) 1 appl MUCOUS MEM QID PRN; Protocol PRN Reason: toothache Last Admin: 01/06/24 17:29 Dose: 1 appl Clonidine HCl (Clonidine Hcl 0.1 Mg Tablet) 0.1 mg PO Q4H PRN; Protocol PRN Reason: moderate anxiety Hydroxyzine HCl (Hydroxyzine Hcl 25 Mg Tablet) 25 mg PO Q6H PRN PRN Reason: Anxiety Ibuprofen (Ibuprofen 600 Mg Tablet) 600 mg PO Q6H PRN PRN Reason: tooth pain Last Admin: 01/06/24 17:30 Dose: 600 mg Magnesium Hydroxide (Milk Of Magnesia 30 Ml Oral.Susp) 30 ml PO DAILY PRN PRN Reason: Constipation Methadone HCl (Methadone Hcl 20 Mg/2 Ml Oral.Conc) 60 mg PO DAILY [facility] Last Admin: 01/06/24 08:12 Dose: 60 mg Nicotine Polacrilex (Nicotine Polacrilex 2 Mg Gum) 2 mg BUCCAL Q2H PRN PRN Reason: Nicotine Cravings Omeprazole (Omeprazole 20 Mg Capsule.Dr) 20 mg PO BID@0630,1630 [facility] Stop: 01/11/24 06:31 Last Admin: 01/06/24 15:47 Dose: 20 mg Quetiapine Fumarate (Quetiapine Fumarate 25 Mg Tablet) 25 mg PO Q6H PRN PRN Reason: mild anxiety/insomnia Last Admin: 01/06/24 18:48 Dose: 25 mg Sertraline HCl (Sertraline Hcl 50 Mg Tablet) 50 mg PO DAILY [facility] Last Admin: 01/06/24 08:12 Dose: 50 mg Trimethoprim/Sulfamethoxazole (Sulfamethox/Trimeth 800/160 Tablet) 1 tab PO Q12H [facility] Stop: 01/10/24 23:01 Last Admin: 01/06/24 11:10 Dose: 1 tab Allergies Allergies Allergy/AdvReac Type Severity Reaction Status Date / Time trazodone [TRAZODONE] AdvReac Severe FACE Verified 01/01/24 21:19 SWELLING, VOMITING Assessment & Plan Assessment & Plan (1) Depression: Status: Acute Code(s): F32.A - Depression, unspecified (2) Polysubstance abuse: Status: Acute Code(s): F19.10 - Other psychoactive substance abuse, uncomplicated Assessment and Plan: 38 yo patient with history of polysubstance depenence and depression presents with SI and relapse on drugs. [facility] from a [facility]. She recently gave to her 6th child 2 months ago. Plan - Admit to inpatient psychiatry - CV - Collateral information from family and providers. - Milieu treatment and group therapy. - Medications: Restart Zoloft 25 mg today and starting 50 mg daily tomorrow. - Social work evaluation. - Disposition planning. 01/03: Ordered Bactrim for cellulitis. Otherwise, continue current management and treatment plan. Monitor response to Zoloft. Aftercare planning. 01/06/24: Continue current regime. Informed Consent: understands Reason for continued inpatient stay Substantial Risk for: rapid decompensation Time Spent With Patient Time: Total time managing care of this patient today ____ minutes.
[2024-01-06 20:00] VITALS: BP 118/58; PULSE 61; RESP 16; TEMP 36.4; O2SAT 98
[2024-01-07] MEDS: Omeprazole 20 MG CAPSULE.DR PO ×2 (09:14→15:59)
[2024-01-07] MEDS: Sertraline HCL 50 MG TABLET PO (09:14)
[2024-01-07] MEDS: methADONE HCl 20 MG/2 ML ORAL.CONC 60 MG PO (09:14)
[2024-01-07 09:45] VITALS: BP 122/71; PULSE 79; RESP 18; TEMP 36.6; O2SAT 96
[2024-01-07] MEDS: Benzocaine 20 % Oral Gel 9 GM TUBE 1 APPL MUCOUS MEM ×3 (09:49→15:01)
[2024-01-07] MEDS: Nicotine Polacrilex 2 MG GUM BUCCAL (09:49)
[2024-01-07] MEDS: Sulfamethox/Trimeth 800/160 TABLET 1 TAB PO ×2 (10:30→23:18)
[2024-01-07] MEDS: Acetaminophen 325 MG TABLET 650 MG PO ×2 (15:01→23:21)
[2024-01-07] MEDS: Ibuprofen 600 MG TABLET PO (15:01)
--- NOTE | 2024-01-07 19:20 | P.PNPSI_ITS ---
Subjective Subjective Date of Service: 01/07/24 Reason For Visit: suicidal ideations Subjective Notes: Conditional Voluntary Healthcare Proxy: No Guardianship: No Medical Problems Affecting Mental Status: No Interim History: Fidel reports she is tolerating regime and although struggling with GI sx from antibiotics, attempting to eat before taking them. Denies SI, HI. Hoping for placement after discharge to continue treatment. Medication Compliance: Yes Side effects from medications: Yes (GI SE from antibiotics) Attending Groups: Intermittent Review of Systems Acute medical concerns: No Medical Review of Systems: unchanged Review of Systems Review of Systems Hand abscess she reports is healing. Reports relief. Mental Status Exam Mental Status Exam Patient Appearance: Appropriate Patient Orientation: Person, Place, Time and Situation Level of Consciousness: Alert Patient Behavior: Appropriate, Talkative, Cooperative and Good Eye Contact Mood Description: Apprehensive Affect Description: Apprehensive Patient Cognition Impaired: No Ability to Follow Directions: Good Speech Pattern: Spontaneous Speech Memory Description: Intact Hallucinations: None Delusions: Not Present Thought Process: Goal Oriented Thought Content: positive for Goal Oriented Depressive Symptoms: Increased Anxiety Judgement: Good Diagnostics Vital Signs (24Hr): Vital Signs - 24 hr 01/06/24 20:00 01/07/24 09:45 Temperature 97.6 F 97.9 F Pulse Rate 61 79 Respiratory Rate 16 18 Blood Pressure 118/58 L 122/71 Pulse Oximetry 98 96 Oxygen Delivery Method Room Air Room Air BMI result Body Mass Index 31.6 Labs 01/01/24 22:34 01/01/24 22:34 Imaging Radiology Impressions: ITS Impressions Ribs X-Ray 01/01/24 21:42 IMPRESSION: Unremarkable examination. Medications Medications Current Medications Acetaminophen (Acetaminophen 325 Mg Tablet) 650 mg PO Q6H PRN PRN Reason: Headache/Pain Mild Scale (1-3) Last Admin: 01/07/24 15:01 Dose: 650 mg Al Hydroxide/Mg Hydroxide (Magnesium Hydrox/Alum Hydrox 30 Ml Oral.Susp) 30 ml PO Q6H PRN PRN Reason: Heartburn/Nausea Benzocaine (Benzocaine 20 % Oral Gel 9 Gm Tube) 1 appl MUCOUS MEM QID PRN; Protocol PRN Reason: toothache Last Admin: 01/07/24 15:01 Dose: 1 appl Clonidine HCl (Clonidine Hcl 0.1 Mg Tablet) 0.1 mg PO Q4H PRN; Protocol PRN Reason: moderate anxiety Hydroxyzine HCl (Hydroxyzine Hcl 25 Mg Tablet) 25 mg PO Q6H PRN PRN Reason: Anxiety Ibuprofen (Ibuprofen 600 Mg Tablet) 600 mg PO Q6H PRN PRN Reason: tooth pain Last Admin: 01/07/24 15:01 Dose: 600 mg Magnesium Hydroxide (Milk Of Magnesia 30 Ml Oral.Susp) 30 ml PO DAILY PRN PRN Reason: Constipation Methadone HCl (Methadone Hcl 20 Mg/2 Ml Oral.Conc) 70 mg PO DAILY [facility] Nicotine Polacrilex (Nicotine Polacrilex 2 Mg Gum) 2 mg BUCCAL Q2H PRN PRN Reason: Nicotine Cravings Last Admin: 01/07/24 09:49 Dose: 2 mg Omeprazole (Omeprazole 20 Mg Capsule.Dr) 20 mg PO BID@0630,1630 [facility] Stop: 01/11/24 06:31 Last Admin: 01/07/24 15:59 Dose: 20 mg Quetiapine Fumarate (Quetiapine Fumarate 25 Mg Tablet) 25 mg PO Q6H PRN PRN Reason: mild anxiety/insomnia Last Admin: 01/06/24 18:48 Dose: 25 mg Sertraline HCl (Sertraline Hcl 50 Mg Tablet) 50 mg PO DAILY [facility] Last Admin: 01/07/24 09:14 Dose: 50 mg Trimethoprim/Sulfamethoxazole (Sulfamethox/Trimeth 800/160 Tablet) 1 tab PO Q12H [facility] Stop: 01/10/24 23:01 Last Admin: 01/07/24 10:30 Dose: 1 tab Allergies Allergies Allergy/AdvReac Type Severity Reaction Status Date / Time trazodone [TRAZODONE] AdvReac Severe FACE Verified 01/01/24 21:19 SWELLING, VOMITING Assessment & Plan Assessment & Plan (1) Depression: Status: Acute Code(s): F32.A - Depression, unspecified (2) Polysubstance abuse: Status: Acute Code(s): F19.10 - Other psychoactive substance abuse, uncomplicated Assessment and Plan: 38 yo patient with history of polysubstance depenence and depression presents with SI and relapse on drugs. She recently was [facility] from a [facility]. She recently gave to her 6th child 2 months ago. Plan - Admit to inpatient psychiatry - CV - Collateral information from family and providers. - Milieu treatment and group therapy. - Medications: Restart Zoloft 25 mg today and starting 50 mg daily tomorrow. - Social work evaluation. - Disposition planning. 01/03: Ordered Bactrim for cellulitis. Otherwise, continue current management and treatment plan. Monitor response to Zoloft. Aftercare planning. 01/06/24: Continue current regime. 01/07/24: Continue current regime. Pt hoping for ongoing treatment after discharge. Patient educated on: medication risk/benefits and medical condition Informed Consent: understands Reason for continued inpatient stay Substantial Risk for: rapid decompensation Time Spent With Patient Time: Total time managing care of this patient today ____ minutes.
[2024-01-07 20:00] VITALS: BP 111/57; PULSE 65; TEMP 36.6; O2SAT 97
[2024-01-07] MEDS: QUEtiapine Fumarate 25 MG TABLET PO (23:27)
[2024-01-08 07:00] VITALS: BMI 30.5
[2024-01-08 08:00] VITALS: BP 95/52; PULSE 78; RESP 16; TEMP 36.9; O2SAT 98
[2024-01-08] MEDS: Omeprazole 20 MG CAPSULE.DR PO ×2 (08:46→17:46)
[2024-01-08] MEDS: Sertraline HCL 50 MG TABLET PO (09:14)
[2024-01-08] MEDS: methADONE HCl 20 MG/2 ML ORAL.CONC 70 MG PO (09:14)
[2024-01-08] MEDS: Benzocaine 20 % Oral Gel 9 GM TUBE 1 APPL MUCOUS MEM ×2 (09:46→21:15)
[2024-01-08 10:01] VITALS: BP 100/58
[2024-01-08] MEDS: Sulfamethox/Trimeth 800/160 TABLET 1 TAB PO ×2 (10:01→20:49)
[2024-01-08] MEDS: cloNIDine HCL 0.1 MG TABLET PO (10:01)
--- NOTE | 2024-01-08 10:49 | HO.ADDICTPRO ---
Subjective Subjective Date of Service: 01/07/24 Reason For Visit: suicidal ideations Interim History: Patient seen in follow up Reporting to RN that she is still experiencing withdrawal sx and would like dose to be adjusted Seen with mercantile agent on unit. Patient awake, alert, pleasant and engaged in interview. Reporting that she is experiencing chills overnight and knots in her stomach Denies any issues with eating, reporting some loose stools (declines PRN medications for this) No other sx reported. Appearing comfortable during evaluation Would like to increase dose to previous therapeutic dose of 80mg Review of Systems Constitutional: Reports as per HPI and Reports no additional constitutional complaints Mental Status Exam Mental Status Exam Patient Appearance: Well Grooomed Level of Consciousness: Awake and Appropriate Patient Behavior: Appropriate Mood Description: Calm Diagnostics Vital Signs (24Hr): Vital Signs - 24 hr 01/07/24 20:00 01/08/24 08:00 01/08/24 10:01 Temperature 97.8 F 98.5 F Pulse Rate 65 78 Respiratory Rate 16 Blood Pressure 111/57 L 95/52 L 100/58 L Pulse Oximetry 97 98 Oxygen Delivery Method Room Air BMI result Body Mass Index 31.6 Labs 01/01/24 22:34 01/01/24 22:34 Imaging Radiology Impressions: ITS Impressions Ribs X-Ray 01/01/24 21:42 IMPRESSION: Unremarkable examination. Medications Medications Current Medications Acetaminophen (Acetaminophen 325 Mg Tablet) 650 mg PO Q6H PRN PRN Reason: Headache/Pain Mild Scale (1-3) Last Admin: 01/07/24 23:21 Dose: 650 mg Al Hydroxide/Mg Hydroxide (Magnesium Hydrox/Alum Hydrox 30 Ml Oral.Susp) 30 ml PO Q6H PRN PRN Reason: Heartburn/Nausea Benzocaine (Benzocaine 20 % Oral Gel 9 Gm Tube) 1 appl MUCOUS MEM QID PRN; Protocol PRN Reason: toothache Last Admin: 01/08/24 09:46 Dose: 1 appl Clonidine HCl (Clonidine Hcl 0.1 Mg Tablet) 0.1 mg PO Q4H PRN; Protocol PRN Reason: moderate anxiety Last Admin: 01/08/24 10:01 Dose: 0.1 mg Hydroxyzine HCl (Hydroxyzine Hcl 25 Mg Tablet) 25 mg PO Q6H PRN PRN Reason: Anxiety Ibuprofen (Ibuprofen 600 Mg Tablet) 600 mg PO Q6H PRN PRN Reason: tooth pain Last Admin: 01/07/24 15:01 Dose: 600 mg Magnesium Hydroxide (Milk Of Magnesia 30 Ml Oral.Susp) 30 ml PO DAILY PRN PRN Reason: Constipation Methadone HCl (Methadone Hcl 20 Mg/2 Ml Oral.Conc) 70 mg PO DAILY [facility] Last Admin: 01/08/24 09:14 Dose: 70 mg Nicotine Polacrilex (Nicotine Polacrilex 2 Mg Gum) 2 mg BUCCAL Q2H PRN PRN Reason: Nicotine Cravings Last Admin: 01/07/24 09:49 Dose: 2 mg Omeprazole (Omeprazole 20 Mg Capsule.Dr) 20 mg PO BID@0630,1630 [facility] Stop: 01/11/24 06:31 Last Admin: 01/08/24 08:46 Dose: 20 mg Quetiapine Fumarate (Quetiapine Fumarate 25 Mg Tablet) 25 mg PO Q6H PRN PRN Reason: mild anxiety/insomnia Last Admin: 01/07/24 23:27 Dose: 25 mg Sertraline HCl (Sertraline Hcl 50 Mg Tablet) 50 mg PO DAILY [facility] Last Admin: 01/08/24 09:14 Dose: 50 mg Trimethoprim/Sulfamethoxazole (Sulfamethox/Trimeth 800/160 Tablet) 1 tab PO Q12H [facility] Stop: 01/10/24 23:01 Last Admin: 01/08/24 10:01 Dose: 1 tab Allergies Allergies Allergy/AdvReac Type Severity Reaction Status Date / Time trazodone [TRAZODONE] AdvReac Severe FACE Verified 01/01/24 21:19 SWELLING, VOMITING Assessment & Plan Assessment & Plan (1) Opioid use disorder: Status: Acute Code(s): F11.90 - Opioid use, unspecified, uncomplicated Assessment and Plan: dose increased to 70mg 01/08/24 will increase to 75 01/09/24 Total time managing care of this patient today _25__ minutes.
--- NOTE | 2024-01-08 15:16 | HO.PSYCHPN ---
Subjective Subjective Date of Service: 01/08/24 Reason For Visit: suicidal ideations Subjective Notes: Conditional Voluntary Healthcare Proxy: No Guardianship: No Medical Problems Affecting Mental Status: No Interim History: Full med review. Reports anxiety, insomnia. Seroquel scheduled at HS and prn adjustments completed. Discussed her apprehension about wanting a program-expressed concern that she will need to go to the street and lose progress gained during her in pt stay. Hopeful regarding prospects for treatment. Medication Compliance: Yes Side effects from medications: No Attending Groups: Intermittent Review of Systems Acute medical concerns: No Medical Review of Systems: unchanged Review of Systems Review of Systems Hand abscess she reports is healing. Reports relief. Mental Status Exam Mental Status Exam Narrative: Alert, oriented Non suicidal, no plan, no intent. No HI Some anxiety and insomnia, medicines addressed Affect and Mood are appropriate Thought process/content are appropriate Diagnostics Vital Signs (24Hr): Vital Signs - 24 hr 01/07/24 20:00 01/08/24 08:00 01/08/24 10:01 Temperature 97.8 F 98.5 F Pulse Rate 65 78 Respiratory Rate 16 Blood Pressure 111/57 L 95/52 L 100/58 L Pulse Oximetry 97 98 Oxygen Delivery Method Room Air BMI result Body Mass Index 30.5 Labs 01/01/24 22:34 01/01/24 22:34 Imaging Radiology Impressions: ITS Impressions Ribs X-Ray 01/01/24 21:42 IMPRESSION: Unremarkable examination. Medications Medications Current Medications Acetaminophen (Acetaminophen 325 Mg Tablet) 650 mg PO Q6H PRN PRN Reason: Headache/Pain Mild Scale (1-3) Last Admin: 01/07/24 23:21 Dose: 650 mg Al Hydroxide/Mg Hydroxide (Magnesium Hydrox/Alum Hydrox 30 Ml Oral.Susp) 30 ml PO Q6H PRN PRN Reason: Heartburn/Nausea Benzocaine (Benzocaine 20 % Oral Gel 9 Gm Tube) 1 appl MUCOUS MEM QID PRN; Protocol PRN Reason: toothache Last Admin: 01/08/24 09:46 Dose: 1 appl Clonidine HCl (Clonidine Hcl 0.1 Mg Tablet) 0.1 mg PO Q4H PRN; Protocol PRN Reason: moderate anxiety Last Admin: 01/08/24 10:01 Dose: 0.1 mg Hydroxyzine HCl (Hydroxyzine Hcl 25 Mg Tablet) 25 mg PO Q6H PRN PRN Reason: Anxiety Ibuprofen (Ibuprofen 600 Mg Tablet) 600 mg PO Q6H PRN PRN Reason: tooth pain Last Admin: 01/07/24 15:01 Dose: 600 mg Magnesium Hydroxide (Milk Of Magnesia 30 Ml Oral.Susp) 30 ml PO DAILY PRN PRN Reason: Constipation Methadone HCl (Methadone Hcl 20 Mg/2 Ml Oral.Conc) 70 mg PO DAILY [facility] Last Admin: 01/08/24 09:14 Dose: 70 mg Nicotine Polacrilex (Nicotine Polacrilex 2 Mg Gum) 2 mg BUCCAL Q2H PRN PRN Reason: Nicotine Cravings Last Admin: 01/07/24 09:49 Dose: 2 mg Omeprazole (Omeprazole 20 Mg Capsule.Dr) 20 mg PO BID@0630,1630 [facility] Stop: 01/11/24 06:31 Last Admin: 01/08/24 08:46 Dose: 20 mg Quetiapine Fumarate (Quetiapine Fumarate 50 Mg Tablet) 50 mg PO Q6H PRN PRN Reason: mild anxiety/insomnia Quetiapine Fumarate (Quetiapine Fumarate 50 Mg Tablet) 50 mg PO BEDTIME [facility] Sertraline HCl (Sertraline Hcl 50 Mg Tablet) 50 mg PO DAILY [facility] Last Admin: 01/08/24 09:14 Dose: 50 mg Trimethoprim/Sulfamethoxazole (Sulfamethox/Trimeth 800/160 Tablet) 1 tab PO Q12H [facility] Stop: 01/10/24 23:01 Last Admin: 01/08/24 10:01 Dose: 1 tab Allergies Allergies Allergy/AdvReac Type Severity Reaction Status Date / Time trazodone [TRAZODONE] AdvReac Severe FACE Verified 01/01/24 21:19 SWELLING, VOMITING Assessment & Plan Assessment & Plan (1) Depression: Status: Acute Code(s): F32.A - Depression, unspecified (2) Polysubstance abuse: Status: Acute Code(s): F19.10 - Other psychoactive substance abuse, uncomplicated Assessment and Plan: 38 yo patient with history of polysubstance depenence and depression presents with SI and relapse on drugs. She recently was discharged from a snf. She recently gave to her 6th child 2 months ago. Plan - Admit to inpatient psychiatry - CV - Collateral information from family and providers. - Milieu treatment and group therapy. - Medications: Restart Zoloft 25 mg today and starting 50 mg daily tomorrow. - Social work evaluation. - Disposition planning. 01/03: Ordered Bactrim for cellulitis. Otherwise, continue current management and treatment plan. Monitor response to Zoloft. Aftercare planning. 01/06/24: Continue current regime. 01/07/24: Continue current regime. Pt hoping for ongoing treatment after discharge. 01/08/24: Seroquel 50 mg HS Adjust prn Seroquel dosing Informed Consent: understands Reason for continued inpatient stay Substantial Risk for: stable for discharge Time Spent With Patient Time: Total time managing care of this patient today ____ minutes.
[2024-01-08 20:00] VITALS: BP 109/55; PULSE 66; TEMP 36.3; O2SAT 98
[2024-01-08] MEDS: QUEtiapine Fumarate 50 MG TABLET PO (20:48)
[2024-01-08] MEDS: Ibuprofen 600 MG TABLET PO (20:51)
[2024-01-09 08:00] VITALS: BP 120/78; PULSE 69; RESP 16; TEMP 36.8; O2SAT 99
[2024-01-09] MEDS: Sertraline HCL 50 MG TABLET PO (09:18)
[2024-01-09] MEDS: Omeprazole 20 MG CAPSULE.DR PO (09:18)
[2024-01-09] MEDS: methADONE HCl 20 MG/2 ML ORAL.CONC 75 MG PO (09:19)
--- NOTE | 2024-01-09 12:05 | P.PNPSI_ITS ---
Subjective Subjective Date of Service: 01/09/24 Reason For Visit: suicidal ideations Interim History: met with patient; discussed with team pt reports mood has improved and though still some residual depression, feeling much better than on admisson. Trouble sleeping due to nightmares and flashbacks of trauma. Discussed meds and pt agrees to try Clonidne qhs to see if helps (the thinks prazosin not helpful in past); reviewed BP and potential side-effect; pt says she'll drink more fluid which she has been meaning to. Also agrees to continued titration of zoloft (used to be on 100mg). Clonidine helped w/ daytime anxiety and she'll try to use this instead of seroquel to avoid risks associated w/ antipsycnotic. Discussed aftercare and pt grateful for option of a program and looking foward to going. remains in good behavioral and impulse control, getting along well with peers, staff and engaged in treatment. Mental Status Exam Mental Status Exam Narrative: Pt is alert and oriented; behavior is cooperative, calm, friendly; patient is not in distress; dressed in hospital blanket wrapped around body; adequate hygiene; mood is described as getter and affect congruent, brighter, calm; eye contact appropriate; Speech is normal rate, volume and prosody and not pressured; no psychomotor retardation present; thought process is organized and goal directed; Thought content is on tx; otherwise pertinent to relevant topics and without any delusional content, paranoid ideations or grandiosity; denies any SI/HI. There is no evidence of perceptual disturbance. Patients insight and judgment fair. Diagnostics Vital Signs (24Hr): Vital Signs - 24 hr 01/08/24 20:00 Temperature 97.4 F Pulse Rate 66 Blood Pressure 109/55 L Pulse Oximetry 98 Oxygen Delivery Method Room Air BMI result Body Mass Index 30.5 Labs 01/01/24 22:34 01/01/24 22:34 Imaging Radiology Impressions: ITS Impressions Ribs X-Ray 01/01/24 21:42 IMPRESSION: Unremarkable examination. Medications Medications Current Medications Acetaminophen (Acetaminophen 325 Mg Tablet) 650 mg PO Q6H PRN PRN Reason: Headache/Pain Mild Scale (1-3) Last Admin: 01/07/24 23:21 Dose: 650 mg Al Hydroxide/Mg Hydroxide (Magnesium Hydrox/Alum Hydrox 30 Ml Oral.Susp) 30 ml PO Q6H PRN PRN Reason: Heartburn/Nausea Benzocaine (Benzocaine 20 % Oral Gel 9 Gm Tube) 1 appl MUCOUS MEM QID PRN; Protocol PRN Reason: toothache Last Admin: 01/08/24 21:15 Dose: 1 appl Clonidine HCl (Clonidine Hcl 0.1 Mg Tablet) 0.1 mg PO Q4H PRN; Protocol PRN Reason: moderate anxiety Last Admin: 01/08/24 10:01 Dose: 0.1 mg Clonidine HCl (Clonidine Hcl 0.1 Mg Tablet) 0.1 mg PO BEDTIME [facility]; Protocol Hydroxyzine HCl (Hydroxyzine Hcl 25 Mg Tablet) 25 mg PO Q6H PRN PRN Reason: Anxiety Ibuprofen (Ibuprofen 600 Mg Tablet) 600 mg PO Q6H PRN PRN Reason: tooth pain Last Admin: 01/08/24 20:51 Dose: 600 mg Magnesium Hydroxide (Milk Of Magnesia 30 Ml Oral.Susp) 30 ml PO DAILY PRN PRN Reason: Constipation Methadone HCl (Methadone Hcl 20 Mg/2 Ml Oral.Conc) 75 mg PO DAILY [facility] Last Admin: 01/09/24 09:19 Dose: 75 mg Nicotine Polacrilex (Nicotine Polacrilex 2 Mg Gum) 2 mg BUCCAL Q2H PRN PRN Reason: Nicotine Cravings Last Admin: 01/07/24 09:49 Dose: 2 mg Omeprazole (Omeprazole 20 Mg Capsule.Dr) 20 mg PO BID@0630,1630 [facility] Stop: 01/11/24 06:31 Last Admin: 01/09/24 09:18 Dose: 20 mg Quetiapine Fumarate (Quetiapine Fumarate 50 Mg Tablet) 50 mg PO Q6H PRN PRN Reason: mild anxiety/insomnia Quetiapine Fumarate (Quetiapine Fumarate 50 Mg Tablet) 50 mg PO BEDTIME [facility] Last Admin: 01/08/24 20:48 Dose: 50 mg Sertraline HCl (Sertraline Hcl 25 Mg Tablet) 75 mg PO DAILY [facility] Sertraline HCl (Sertraline Hcl 25 Mg Tablet) 25 mg PO ONCE ONE Stop: 01/09/24 12:04 Trimethoprim/Sulfamethoxazole (Sulfamethox/Trimeth 800/160 Tablet) 1 tab PO Q12H [facility] Stop: 01/10/24 23:01 Last Admin: 01/08/24 20:49 Dose: 1 tab Allergies Allergies Allergy/AdvReac Type Severity Reaction Status Date / Time trazodone [TRAZODONE] AdvReac Severe FACE Verified 01/01/24 21:19 SWELLING, VOMITING Assessment & Plan Assessment & Plan (1) Depression: Qualifiers: Depression Type: major depressive disorder Major depression recurrence: recurrent Active/Remission status: in partial remission Qualified Code(s): F 33.41 - Major depressive disorder, recurrent, in partial remission Status: Acute Code(s): F32.A - Depression, unspecified (2) PTSD (post-traumatic stress disorder): Status: Acute Code(s): F43.10 - Post-traumatic stress disorder, unspecified (3) Polysubstance abuse: Status: Acute Code(s): F19.10 - Other psychoactive substance abuse, uncomplicated Plan 38 yo patient with history of polysubstance depenence and depression presents with SI and relapse on drugs. She recently was discharged from a fdc. She recently gave to her 6th child 2 months ago. HOSPITAL COURSE: 01/03: Ordered Bactrim for cellulitis. Otherwise, continue current management and treatment plan. Monitor response to Zoloft. Aftercare planning. 01/04 pt says she's depressed, but doing a little better than on admission and glad to be back on Zoloft. Feeling nausea which she says typically happens when starting Zoloft but goes away in a few days and is tolerable. No more SI. Trouble sleeping and allergy to Trazodone; pt says Seroquel has worked for insomnia and also as a prn; reviewed risks/side-effects and pt agrees to try Clonidine for anxiety to see if it can work instead of seroquel. 01/05 Pt seen by hospitalist for hand abscess-antibiotics initiated. 01/06 tolerating regime and although struggling with GI sx from antibiotics, attempting to eat before taking them. Denies SI, HI. Hoping for placement after discharge to continue treatment. 01/08 pt reports mood has improved and though still some residual depression, feeling much better than on admisson. Trouble sleeping due to nightmares and flashbacks of trauma. Discussed meds and pt agrees to try Clonidne qhs to see if helps (the thinks prazosin not helpful in past); also agrees to continued titration of zoloft (used to be on 100mg). Clonidine helped w/ daytime anxiety and she'll try to use this instead of seroquel to avoid risks associated w/ antipsycnotic. -Discussed aftercare and pt grateful for option of a program and looking foward to going. -remains in good behavioral and impulse control, getting along well with peers, staff and engaged in treatment. Pt is stable on current medication regimen. Plan - CV Increased Zoloft to 75mg (was on 100mg) Schedule Clonidine 0.1mg qhs for nightmares - Collateral information from family and providers. - Milieu treatment and group therapy - Social work evaluation. - Disposition planning. Patient educated on: diagnosis, medication risk/benefits and therapeutic strategies Informed Consent: understands Reason for continued inpatient stay Substantial Risk for: stable for discharge Time Spent With Patient Time: Total time managing care of this patient today ____ minutes.
[2024-01-09] MEDS: Sertraline HCL 25 MG TABLET PO (13:29)
[2024-01-09] MEDS: Sulfamethox/Trimeth 800/160 TABLET 1 TAB PO (13:30)
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
[2024-01-09] MEDS: Naloxone HCl Nasal TAKE HOME 4 MG SPRAY 8 MG NOSTRILALT (14:23)
--- NOTE | 2024-01-09 15:55 | PM.EVENT ---
Event Note Date of Service: 01/09/24 Event Note: Patient seen for follow-up for cellulitis of palmar aspect of left hand at site IVDU injection. Patient reports that yesterday a ?bag blister? popped with foul-smelling discharge. Today overlying skin came off while patient was showering. Upon physical examination area of fluctuance and induration noted without active discharge. See picture below Will consult general surgery for evaluation I&D of abscess. Patient should be discharged on 10 days Bactrim b.i.d.. Time Spent With Patient Time: Total time managing care of this patient today ____ minutes.
--- NOTE | 2024-01-09 16:03 | P.EN_ITS ---
Event Note Date of Service: 01/09/24 Event Note: On day of discharge, Patient showed right hand lesion, being treated for cellulitis; program writer reached out to hospitalist SHANTA who recommended extending Bactrim for total of 10 days and also ordered surgical consult to assess wound. Time Spent With Patient Time: Total time managing care of this patient today ____ minutes.
--- NOTE | 2024-01-09 16:27 | PM.CNGS ---
History of Present Illness Consult details Consult date: 01/09/24 Narrative: 38F here in [facility] for depression, with known IVDA, referred for an abscess on the hand. She has had this induration for several days and she was placed on Bactrim. This apparently did not improve and became more fluctuant. She was referred to me for I and D. She says this may have started after she had usedan adjacent area for injection of drugs. She has no fever or chills. Review of Systems Constitutional: Constitutional: Denies chills and Denies fever(s) Cardiovascular: Cardiovascular: Denies chest pain, Denies dyspnea and Denies dyspnea on exertion Respiratory: Respiratory: Denies cough, Denies dyspnea and Denies dyspnea on exertion Gastrointestinal: Gastrointestinal: Denies hematochezia and Denies change in bowel habits Genitourinary: Genitourinary: Denies hematuria Musculoskeletal: Musculoskeletal: Denies back pain and Denies limited range of motion Neurologic: Denies focal weakness and Denies convulsions Psychiatric: Psychiatric: Reports depression and Reports mood swings [facility] Past Medical History Medical History (Updated 01/09/24 @ 16:31 by William Guerra MD) Hand abscess PTSD (post-traumatic stress disorder) IV drug user Depression Drug abuse Surgical History Surgical History History of Social History Social History Household Members: None Housing: Homeless Do you presently have visiting nurse or other home services: Yes (N) Alcohol intake: current Alcohol intake frequency: holidays/special occasions only Comment: pt sleeping Patient Tobacco Use Status: Current someday Tobacco user Tobacco use type: Cigarette Cigarette Packs Per Day: 1 Cigarettes Per Day: 10 Years Smoked: 16 e-Cigarette/Vaping Use: Never Used Second Hand Smoke Exposure: No Substance Use Type: Crack/Cocaine, Heroin, IV Drugs, Marijuana, Opiates and Other service: No Sexual orientation: Straight/Heterosexual Meds Allergies Allergy/AdvReac Type Severity Reaction Status Date / Time trazodone [TRAZODONE] AdvReac Severe FACE Verified 01/01/24 21:19 SWELLING, VOMITING Active Medications: Current Medications Acetaminophen (Acetaminophen 325 Mg Tablet) 650 mg PO Q6H PRN PRN Reason: Headache/Pain Mild Scale (1-3) Last Admin: 01/07/24 23:21 Dose: 650 mg Al Hydroxide/Mg Hydroxide (Magnesium Hydrox/Alum Hydrox 30 Ml Oral.Susp) 30 ml PO Q6H PRN PRN Reason: Heartburn/Nausea Benzocaine (Benzocaine 20 % Oral Gel 9 Gm Tube) 1 appl MUCOUS MEM QID PRN; Protocol PRN Reason: toothache Last Admin: 01/08/24 21:15 Dose: 1 appl Clonidine HCl (Clonidine Hcl 0.1 Mg Tablet) 0.1 mg PO Q4H PRN; Protocol PRN Reason: moderate anxiety Last Admin: 01/08/24 10:01 Dose: 0.1 mg Clonidine HCl (Clonidine Hcl 0.1 Mg Tablet) 0.1 mg PO BEDTIME [facility]; Protocol Hydroxyzine HCl (Hydroxyzine Hcl 25 Mg Tablet) 25 mg PO Q6H PRN PRN Reason: Anxiety Ibuprofen (Ibuprofen 600 Mg Tablet) 600 mg PO Q6H PRN PRN Reason: tooth pain Last Admin: 01/08/24 20:51 Dose: 600 mg Magnesium Hydroxide (Milk Of Magnesia 30 Ml Oral.Susp) 30 ml PO DAILY PRN PRN Reason: Constipation Methadone HCl (Methadone Hcl 20 Mg/2 Ml Oral.Conc) 75 mg PO DAILY [facility] Last Admin: 01/09/24 09:19 Dose: 75 mg Nicotine Polacrilex (Nicotine Polacrilex 2 Mg Gum) 2 mg BUCCAL Q2H PRN PRN Reason: Nicotine Cravings Last Admin: 01/07/24 09:49 Dose: 2 mg Omeprazole (Omeprazole 20 Mg Capsule.Dr) 20 mg PO BID@0630,1630 [facility] Stop: 01/11/24 06:31 Last Admin: 01/09/24 09:18 Dose: 20 mg Quetiapine Fumarate (Quetiapine Fumarate 50 Mg Tablet) 50 mg PO Q6H PRN PRN Reason: mild anxiety/insomnia Quetiapine Fumarate (Quetiapine Fumarate 50 Mg Tablet) 50 mg PO BEDTIME [facility] Last Admin: 01/08/24 20:48 Dose: 50 mg Sertraline HCl (Sertraline Hcl 25 Mg Tablet) 75 mg PO DAILY [facility] Trimethoprim/Sulfamethoxazole (Sulfamethox/Trimeth 800/160 Tablet) 1 tab PO Q12H [facility] Stop: 01/10/24 23:01 Last Admin: 01/09/24 13:30 Dose: 1 tab Physical Exam Vital Signs: Vital Signs: Last Vital Signs Temp 98.2 F 01/09/24 08:00 Pulse 69 01/09/24 08:00 Resp 16 01/09/24 08:00 BP 120/78 01/09/24 08:00 Pulse Ox 99 01/09/24 08:00 O2 Del Method Room Air 01/09/24 08:00 BMI result Body Mass Index 30.5 Const: General: comfortable and no acute distress Orientation/consciousness: oriented to place Resp: Effort & Inspection: normal respiratory effort Cardio: Rate: regular rate GI: Palpation (GI): Soft to palpation and nontender Neuro: General: oriented to place Extrem: Other: right hand palmar aspect - induration about 3cm wide with central fluctuance, c/w an abscess, no cellulitis Results Labs 01/01/24 22:34 01/01/24 22:34 Labs: Urine 01/01/24 Range/Units 22:18 Urine Color Dark Yellow Urine Appearance Turbid Urine pH 6.0 (5.0-9.0) Ur Specific [place] >= 1.030 H (1.005-1.025) Urine Protein Trace (Neg-Trace) mg/dL Urine Glucose (UA) Negative (Negative) mg/dL All other labs normal. Assessment and Plan (1) Hand abscess: Status: Acute I explained to her it is best to do an I and D under local anesthesia. I explained the technique of this procedure as well as the risks, benefits and alternatives. The area on the right hand palmar aspect was prepped and draped. Lidocaine 1% was used for local anesthesia. I mad a cruciate incision using a fine tipped scissors.. This was carried down to enter the cavity. Small amounts of pus was drained and cultures were taken. Dressings were applied. She tolerated the procedure well. There were no immediate complications. She was given wound care instructions and can take Tylenol and Ibuprofen for pain. Procedures Date of Service Date of Service: 01/16/24
--- NOTE | 2024-01-09 16:54 | W.PM.OPN ---
Operative Note Operative Note Date of Service: 01/09/24 Narrative: BEDSIDE PROCEDURE Preop dx: right hand abscess Postop dx: same Procedure: I and D of hand abscess The area on the right hand palmar aspect was prepped and draped. Lidocaine 1% was used for local anesthesia. I mad a cruciate incision using a fine tipped scissors.. This was carried down to enter the cavity. Small amounts of pus was drained and cultures were taken. Dressings were applied. She tolerated the procedure well. There were no immediate complications.
--- NOTE | 2024-01-29 08:10 | P.CDIM_ITS ---
PROVIDER RESPONSE TEXT: To clarify, the appropriate diagnosis supported by the clinical indicators: right hand QUERY TEXT: PHYSICIAN'S DOCUMENTATION REQUEST Date of Query: 01/29/2024 07:02 AM EDT Patient Name: Fidel Gómez Admit Date: 01/02/2024 Dear William Guerra, A review of the medical record indicates additional documentation may be needed. Please review below and update the documentation accordingly. Clinical Indicators: Per Event Note 01/06/24: Pt with cellulitis of L hand r/t IV drug use. open lesion with surrounding ruptured bulla of palmar surface of L hand. She states there was purulen t drainage from the hand Per Operative Note 01/09/24: I&D of right hand palmar aspect Based on the above, could you clarify the laterality of the abscess that supports the above abnormali ties and additional evaluation, monitoring, and/or treatment rendered: left hand right hand Other (explain) Clinically unable to determine (explain) Thank you, Jennifer Fernandez RN Use of terms such as suspected, likely, concern for, or probable (associated with a specific diagnosi s that is being evaluated, monitored, or treated as if it exists) are acceptable and can be coded in the inpatient se tting, when documented at the time of discharge. Please use your independent medical judgment in providing your response. THIS QUERY IS PART OF THE PERMANENT MEDICAL RECORD
== END 2024-01-09 18:50 | disposition home or self-care (01) | DRG 751 ==
LOC: HO.ED 23:12 → HO.PM5 01-02 13:18
PROVIDERS: Student in an Organized Health Care Education/Training Program; Admitting Provider Clinical Nurse Specialist Psychiatric/Mental Health; Emergency Provider Emergency Medicine; Visit Provider Clinical Nurse Specialist Psychiatric/Mental Health, Adult
DX: F33.2 Major depressive disorder, recurrent severe without psychotic features (principal); F11.20 Opioid dependence, uncomplicated; L02.511 Cutaneous abscess of right hand; F17.210 Nicotine dependence, cigarettes, uncomplicated; L03.114 Cellulitis of left upper limb; F43.10 Post-traumatic stress disorder, unspecified; F19.10 Other psychoactive substance abuse, uncomplicated; Z71.6 Tobacco abuse counseling; Z59.02 Unsheltered homelessness; Z20.822 Contact with and (suspected) exposure to COVID-19; Z79.899 Other long term (current) drug therapy
CPT/HCPCS: 36415; 71101; 80048; 80076; 80307; 81001; 84702; 85025; 87070; 87077; 87086; 87186; 87205; 87635; 92950; 93005; 99285; S9485

== ENCOUNTER → 2024-01-02 08:00 | Outpatient (BNV) | payer OTHER, SELFPAY | PROVIDERS: Admitting Provider Clinical Nurse Specialist Psychiatric/Mental Health; Emergency Provider Emergency Medicine; Visit Provider Internal Medicine Cardiovascular Disease | DX: R94.31 Abnormal electrocardiogram [ECG] [EKG] (principal) | CPT/HCPCS: 93010 ==

== ENCOUNTER → 2024-01-02 13:14 | Outpatient (BNV) | payer OTHER, SELFPAY | PROVIDERS: Admitting Provider Clinical Nurse Specialist Psychiatric/Mental Health; Emergency Provider Emergency Medicine; Visit Provider Surgery | DX: L02.519 Cutaneous abscess of unspecified hand (principal) | CPT/HCPCS: 10060; 99222 ==

== ENCOUNTER → 2024-01-02 13:14 | Outpatient (BNV) | payer OTHER, SELFPAY | PROVIDERS: Admitting Provider Clinical Nurse Specialist Psychiatric/Mental Health; Emergency Provider Emergency Medicine; Visit Provider Psychiatry & Neurology Psychiatry | DX: F33.2 Major depressive disorder, recurrent severe without psychotic features (principal); F43.11 Post-traumatic stress disorder, acute; F19.10 Other psychoactive substance abuse, uncomplicated | CPT/HCPCS: 90792; 99231; 99232; 99239; 99499 ==

== ENCOUNTER 2024-02-18 01:10 | Emergency (ER) | payer OTHER, SELFPAY ==
[2024-02-18 01:24] VITALS: BP 119/79; PULSE 106; RESP 20; TEMP 36.8; O2SAT 98; BMI 35.8
[2024-02-18 01:53] LABS: MANUAL DIFF FLAG NO
[2024-02-18 01:56] LABS: Basophils Percent Auto 0.1 % (0-2); Eosinophils Absolute Auto 0.3 X10*3/uL (0.0-0.4); Hemoglobin 14.5 g/dl (12.0-16.0); Imm Gran Abs Auto 0.02 X10*3/uL (0.00-0.03); Imm Gran Pct Auto 0.2 % (0.0-0.4); Lymphocytes Absolute Auto 2.5 X10*3/uL (1.2-4.9); Lymphocytes Percent Auto 27.6 % (20-40); Mean Corpuscular HGB Conc 33.7 g/dl (31.0-35.0); Mean Corpuscular Hemoglobin 29.7 pg (27.0-33.0); Mean Corpuscular Volume 87.9 fL (80.0-98.0); Mean Platelet Volume 10.3 fL (9.4-12.3); Monocytes Absolute Auto 0.7 X10*3/uL (0.1-1.2); Monocytes Percent Auto 7.6 % (2-11); Neutrophils Absolute Auto 5.5 x10*3/uL (2.0-8.3); Neutrophils Percent Auto 61.5 % (45-73); Platelet Count 249 X10*3/uL (160-400); Red Blood Count 4.89 X10*6/uL (4.20-5.50); Red Cell Distribution Width 15.4 % (11.0-16.0)
[2024-02-18 02:11] LABS: Alanine Aminotransferase 226 U/L (0-31); Albumin Level 3.7 g/dL (3.5-5.0); Alkaline Phosphatase 68 U/L (39-117); Anion Gap 11 (12-20); Aspartate Amino Transferase 119 U/L (5-31); Bilirubin Total 0.6 mg/dL (0.0-1.0); Blood Urea Nitrogen 17 mg/dL (9-16); Calcium 9.6 mg/dL (8.4-10.2); Carbon Dioxide 23 mmol/L (22-29); Chloride 108 mmol/L (96-108); Creatinine Clr Calc Pharmacy 97.8; Estimated Glomerular Filt Rate > 60; Glucose Random 98 mg/dL (60-115); Potassium 4.4 mmol/L (3.3-5.1); Sodium 138 mmol/L (135-145); Total Protein 7.9 g/dL (6.5-8.0)
[2024-02-18 03:36] VITALS: BP 114/74; PULSE 74; RESP 17; TEMP 36.7; O2SAT 99
--- NOTE | 2024-02-18 05:21 | ED_ITS ---
HPI - General Adult General Chief complaint: Weakness Stated complaint: not feeling well Time Seen by Provider: 02/18/24 05:18 Source: patient Mode of arrival: ambulatory Limitations: no limitations History of Present Illness ED Provider: Dr. Mounika Logan HPI narrative: Patient comes to the emergency room complaining of sore throat for couple of days, patient denies difficulty swallowing. Patient denies fever chills. Also, patient complaining of generalized weakness Related Data Previous Rx's ?Medication ?Instructions ?Recorded benzocaine 20 % mucosal gel 1 appl mucous membrane QID PRN 01/09/24 (Anbesol (benzocaine) Maximum toothache 14 days #9 grams Strength) clonidine HCl 0.1 mg tablet 0.1 mg PO Q4H PRN 01/09/24 anxiety/insomnia/nighmares 30 days #90 tabs methadone 10 mg/mL oral 75 mg (7.5 mL) PO DAILY #0 mL 01/09/24 concentrate (Methadose) omeprazole 20 mg capsule,delayed 20 mg PO BID 6 days #12 caps 01/09/24 release quetiapine 50 mg tablet 50 mg PO BEDTIME 30 days #30 tabs 01/09/24 quetiapine 50 mg tablet 50 mg PO Q6H PRN mild 01/09/24 anxiety/insomnia 30 days #60 tabs sertraline 50 mg tablet 75 mg (1.5 x 50 mg) PO DAILY 30 01/09/24 days #45 tabs sulfamethoxazole 800 1 tab PO BID 5 days #10 tabs 01/09/24 mg-trimethoprim 160 mg tablet (Bactrim DS) ibuprofen 600 mg tablet 600 mg PO TID PRN fever or pain 02/18/24 #20 tabs nirmatrelvir 300 mg (150 mg See Rx Instructions PO .COMPLEX 02/18/24 x2)-ritonavir 100 mg tablet,dose #30 ea pack (Paxlovid) Allergies Allergy/AdvReac Type Severity Reaction Status Date / Time trazodone [TRAZODONE] AdvReac Severe FACE Verified 02/18/24 01:25 SWELLING, VOMITING Review of Systems 2 Review of Systems: Constitutional : No Weight loss, No Fever, No Chills, No Night Sweats, complaining of fatigue and generalized weakness ENT/Mouth : No Hearing loss, No Ear Pain, No Nasal Congestion, No Sinus Pain, No Hoarseness, leaning sore throat, No Rhinorrhea, No Swallowing Difficulty Eyes: No Eye Pain, No Swelling, No Redness, No Foreign Body, No Discharge, No Vision Changes Cardiovascular : No Chest Pain, No SOB, No Dyspnea on Exertion, No Orthopnea, No Edema, No Palpitations Respiratory : No Cough, No Sputum, No Wheezing, No Smoke Exposure, No Dyspnea Gastrointestinal : No Nausea, No Vomiting, No Diarrhea, No Constipation, No abdominal Pain, No Hematochezia, No Melena Genitourinary : no irregular bleeding, No Dysuria, No Urinary Frequency, No Hematuria, No Urinary Incontinence, No Urgency, No Flank Pain, No Urinary Flow Changes, No Hesitancy Musculoskeletal : No joint pain, No Myalgias, No Joint Swelling Skin : No Skin Lesions, No rash Neuro : No Weakness, No Numbness, No Paresthesias, No Loss of Consciousness, No Dizziness, No Headache Psych : No Anxiety/Panic, No Depression, No SI/HI/AH/VH, No Social Issues, Heme/Lymph: No Bruising, No Bleeding,No Lymphadenopathy Endocrine : No Polyuria, No Polydipsia, No Temperature Intolerance [facility] Past Medical History Medical History Hand abscess PTSD (post-traumatic stress disorder) IV drug user Depression Drug abuse Surgical History History of Social History Social History Household Members: None Housing: Homeless Do you presently have visiting nurse or other home services: Yes (N) Alcohol intake: current Alcohol intake frequency: holidays/special occasions only Comment: pt sleeping Patient Tobacco Use Status: Current someday Tobacco user Tobacco use type: Cigarette Cigarette Packs Per Day: 1 Cigarettes Per Day: 10 Years Smoked: 16 Smoked in Last 30 Days: No e-Cigarette/Vaping Use: Never Used Second Hand Smoke Exposure: No Substance Use Type: Crack/Cocaine, Heroin, IV Drugs, Marijuana, Opiates and Other Advance Directives: No Advance Directives Information Provided: No service: No Sexual orientation: Straight/Heterosexual Physical Exam ED Vital Signs: Vital Signs - 24 hr 02/18/24 01:24 02/18/24 03:36 02/18/24 05:24 Temperature 98.3 F 98.0 F 98 F Pulse Rate 106 H 74 73 Respiratory Rate 20 17 16 Blood Pressure 119/79 114/74 117/70 Pulse Oximetry 98 99 99 Oxygen Delivery Method Room Air Room Air Room Air BMI result Body Mass Index 35.8 Const Other: Appearance: Alert. Oriented X3. No acute distress. Eyes: Pupils equal, round and reactive to light. ENT: Mildly erythematous oropharynx, no exudates Neck: Normal inspection. Neck supple. No lymph nodes noted. No crepitus CVS: Normal heart rate and rhythm. Pulses normal. Normal S1 and S2 Respiratory: No respiratory distress. Breath sounds normal. No Wheezing. No rales Abdomen: Soft and nontender. No rigidity. No distention. Skin: Skin warm and dry. Normal skin color. Normal skin turgor. Extremities: No lower extremity edema. No Lacerations. No Rash Neuro: Oriented X 3. No motor deficit. No sensory deficit. Moving all extremities. No slurred speech. CN 2 through 12 grossly intact Psych: calm, cooperative, normal affect Medical Decision Making Medical Decision Making [facility] Narrative: My interpretation of labs, normal hematology and chemistry, patient tested positive for COVID, negative for strep -patient states that she has been symptomatic for couple of days, patient is still within the window of treatment to be given Paxlovid Differential Diagnosis Differential Diagnoses: The differential diagnosis associated with the presentation includes (Viral pharyngitis, bacterial pharyngitis, URI) Lab Data [facility] Lab Attestation statement: I reviewed the patient's lab results. 02/18/24 01:49 02/18/24 01:49 Labs: Lab Results 02/18/24 02/18/24 Range/Units 01:49 05:23 WBC 9.0 (4.8-10.8) X10*3/uL RBC 4.89 (4.20-5.50) X10*6/uL Hgb 14.5 (12.0-16.0) g/dl Hct 43.0 (37.0-47.0) % MCV 87.9 (80.0-98.0) fL MCH 29.7 (27.0-33.0) pg MCHC 33.7 (31.0-35.0) g/dl RDW 15.4 (11.0-16.0) % Plt Count 249 D (160-400) X10*3/uL MPV 10.3 (9.4-12.3) fL Immature Gran % (Auto) 0.2 (0.0-0.4) % Neut % (Auto) 61.5 (45-73) % Lymph % (Auto) 27.6 (20-40) % [place] % (Auto) 7.6 (2-11) % Eos % (Auto) 3.0 (0-4) % Baso % (Auto) 0.1 (0-2) % Lymph # (Auto) 2.5 (1.2-4.9) X10*3/uL [place] # (Auto) 0.7 (0.1-1.2) X10*3/uL Eos # (Auto) 0.3 (0.0-0.4) X10*3/uL Baso # (Auto) 0.0 (0.0-0.2) X10*3/uL Abs Immat Gran (auto) 0.02 (0.00-0.03) X10*3/uL Absolute Neuts (auto) 5.5 (2.0-8.3) x10*3/uL Absolute Nucleated RBC 0.000 (0.0-0.012) X10*3/uL Nucleated RBC % (auto) 0.0 (0.0-0.2) /100WBC Sodium 138 (135-145) mmol/L Potassium 4.4 D (3.3-5.1) mmol/L Chloride 108 (96-108) mmol/L Carbon Dioxide 23 (22-29) mmol/L Anion Gap 11 L (12-20) BUN 17 H (9-16) mg/dL Creatinine 0.76 (0.5-1.4) mg/dL Estim Creat Clear Calc 97.8 Estimated GFR > 60 Random Glucose 98 (60-115) mg/dL Calcium 9.6 D (8.4-10.2) mg/dL Total Bilirubin 0.6 (0.0-1.0) mg/dL AST 119 H (5-31) U/L ALT 226 H (0-31) U/L Alkaline Phosphatase 68 (39-117) U/L Total Protein 7.9 (6.5-8.0) g/dL Albumin 3.7 (3.5-5.0) g/dL COVID-19 (BARBARA) Positive A (Negative) COVID-19 Clin Com See Note S. pyogenes GrpA NATALY Negative (Negative) Discharge Plan Discharge Clinical Impression: COVID-19 Patient Disposition: Home, Self-Care Instructions: COVID-19 (Coronavirus Disease 2019) (ED) Additional Instructions: Please follow-up with your primary care physician tomorrow. If you have any worsening or new symptoms, please return to the emergency room or call 911 Prescriptions: New Paxlovid 300 mg (150 mg x 2)-100 mg tablets,dose pack See Rx Instructions .ROUTE .COMPLEX Qty: 30 0RF Rx Instructions: take TWO 150 mg tablets of nirmatrelvir with ONE 100 mg tablet of ritonavir twice daily for 5 days ibuprofen 600 mg tablet 600 mg PO TID PRN (Reason: fever or pain) Qty: 20 0RF No Action clonidine HCl 0.1 mg Tablet 0.1 mg PO Q4H PRN (Reason: anxiety/insomnia/nighmares) 30 Days Qty: 90 1RF Protocol: Hold for SBP< HOLD for SBP < : 90 methadone [Methadose] 10 mg/mL Concentrate 75 mg PO DAILY Qty: 0 0RF Rx Instructions: Partial Fill upon patient request. quetiapine 50 mg Tablet 50 mg PO BEDTIME 30 Days Qty: 30 1RF sertraline 50 mg tablet 75 mg PO DAILY 30 Days Qty: 45 1RF Anbesol (benzocaine) Max Str 20 % Gel 1 appl mucous membrane QID PRN (Reason: toothache) 14 Days Qty: 9 0RF Protocol: Apply to: Apply to: tooth quetiapine 50 mg Tablet 50 mg PO Q6H PRN (Reason: mild anxiety/insomnia) 30 Days Qty: 60 1RF sulfamethoxazole-trimethoprim [Bactrim DS] 800-160 mg tablet 1 tab PO BID 5 Days Qty: 10 0RF omeprazole 20 mg capsule,delayed release(DR/EC) 20 mg PO BID 6 Days Qty: 12 0RF Rx Instructions: take with antibiotic Print Language: B[place]
[2024-02-18 05:24] VITALS: BP 117/70; PULSE 73; RESP 16; TEMP 36.6; O2SAT 99
[2024-02-18 05:38] LABS: COVID-19 Test Positive (Negative); IDNOW Serial# 08D9AD1C; IDNOW Serial# 152EDE1D; Strep A Nucleic Acid Negative (Negative)
[2024-02-18 06:06] VITALS: BP 117/70; PULSE 73; RESP 16; TEMP 36.6; O2SAT 99
== END 2024-02-18 06:26 | disposition home or self-care (01) ==
PROVIDERS: Emergency Provider Emergency Medicine
DX: U07.1 COVID-19 (principal); J02.9 Acute pharyngitis, unspecified
CPT/HCPCS: 36415; 80053; 85025; 87635; 87651; 99283; 99284

== ENCOUNTER 2024-05-13 21:32 | Emergency (ER) | payer OTHER, SELFPAY ==
[2024-05-13 22:02] VITALS: BP 147/93; PULSE 81; RESP 16; TEMP 35.7; O2SAT 98; BMI 34.4
[2024-05-13 23:08] LABS: Appearance Urine Clear; Color Urine Dark Yellow; Glucose Urine UA Negative (Negative); Leukocyte Esterase Urine Small (1+) (Negative); Nitrite Urine Negative (Negative); Specific Gravity - Urine 1.025 (1.005-1.025); UMIC TRIGGER UACC YES; Urine Blood Negative (Negative); Urine Ketones Trace mg/dL (Negative); Urine Protein Trace mg/dL (Neg-Trace)
[2024-05-13 23:15] LABS: Bacteria Urine None Seen (None Seen); RBC Urine 0-2 /HPF (0-2); UACC Culture Trigger YES; WBC Urine 0-5 /HPF (0-5)
== END 2024-05-14 02:58 | disposition left against medical advice (07) ==
PROVIDERS: Emergency Provider Emergency Medicine; PCP Internal Medicine
DX: R10.30 Lower abdominal pain, unspecified (principal); R30.0 Dysuria; Z53.21 Procedure and treatment not carried out due to patient leaving prior to being seen by health care provider
CPT/HCPCS: 81001; 87086; 99281; 99282

== ENCOUNTER 2024-07-29 15:43 | Emergency (ER) | payer OTHER, SELFPAY ==
--- NOTE | ~2024-07-29 | XR_ITS ---
EXAMINATION: XR HIP, RIGHT CLINICAL INFORMATION: Right hip pain COMPARISON: None available. TECHNIQUE: Two views of the right hip. Pelvis 1 view FINDINGS: Right hip: Joint space is maintained. No acute fracture or dislocation. There is a apparent rounded lucency in the lateral femoral neck, possible synovial herniation pit. No abnormal soft tissue calcification. Pelvis: Left hip joint space is maintained. SI joints and symphysis pubis are intact. No acute pelvic fractures identified. Gas and stool projected over the pelvis limiting evaluation. XR/XR hip RT w PEL1V IMPRESSION: No evidence of acute fracture or malalignment. Subtle rounded lucency in the lateral right femoral neck, possible synovial herniation pit. Electronically signed by: David Busch MD 07/29/2024 07:52 PM EST RP
--- NOTE | ~2024-07-29 | XR_ITS ---
EXAMINATION: XR LUMBOSACRAL SPINE CLINICAL INFORMATION: back pain COMPARISON: X-ray 02/29/2012 TECHNIQUE: Three views of the lumbosacral spine. FINDINGS: Redemonstrated is transitional vertebra. Normal vertebral body alignment. No acute fracture. No bony lesion is identified. No abnormal soft tissue calcification.. XR/XR lumbar spine 2-3V IMPRESSION: No radiographic evidence of acute fracture or subluxation. Electronically signed by: David Busch MD 07/29/2024 07:33 PM [facility]ER
--- NOTE | ~2024-07-29 | XR_ITS ---
EXAMINATION: XR KNEE, RIGHT CLINICAL INFORMATION: Knee pain COMPARISON: None available. TECHNIQUE: Two views of the right knee. FINDINGS: No visible acute fracture or dislocation. Alignment is anatomic. Joint spaces are maintained. No abnormal soft tissue calcification. XR/XR knee RT 2V IMPRESSION: No radiographic evidence of acute osseous abnormality. Electronically signed by: David Busch MD 07/29/2024 07:49 PM EST
[2024-07-29 16:28] VITALS: BP 157/101; PULSE 85; RESP 20; TEMP 35.4; O2SAT 96; BMI 38.8
--- NOTE | 2024-07-29 16:34 | ED.GENADULT ---
HPI - General Adult General Chief complaint: Extremity Injury, Lower Stated complaint: rt leg numb from knee up/today feels on fire Time Seen by Provider: 07/29/24 20:11 History of Present Illness HPI narrative: patient left before completion of treatment by ED provider Related Data Previous Rx's ?Medication ?Instructions ?Recorded benzocaine 20 % mucosal gel 1 appl mucous membrane QID PRN 01/09/24 (Anbesol (benzocaine) Maximum toothache 14 days #9 grams Strength) clonidine HCl 0.1 mg tablet 0.1 mg PO Q4H PRN 01/09/24 anxiety/insomnia/nighmares 30 days #90 tabs methadone 10 mg/mL oral 75 mg (7.5 mL) PO DAILY #0 mL 01/09/24 concentrate (Methadose) omeprazole 20 mg capsule,delayed 20 mg PO BID 6 days #12 caps 01/09/24 release quetiapine 50 mg tablet 50 mg PO BEDTIME 30 days #30 tabs 01/09/24 quetiapine 50 mg tablet 50 mg PO Q6H PRN mild 01/09/24 anxiety/insomnia 30 days #60 tabs sertraline 50 mg tablet 75 mg (1.5 x 50 mg) PO DAILY 30 01/09/24 days #45 tabs sulfamethoxazole 800 1 tab PO BID 5 days #10 tabs 01/09/24 mg-trimethoprim 160 mg tablet (Bactrim DS) ibuprofen 600 mg tablet 600 mg PO TID PRN fever or pain 02/18/24 #20 tabs nirmatrelvir 300 mg (150 mg See Rx Instructions PO .COMPLEX 02/18/24 x2)-ritonavir 100 mg tablet,dose #30 ea pack (Paxlovid) Allergies Allergy/AdvReac Type Severity Reaction Status Date / Time amoxicillin Allergy Nausea Verified 07/29/24 16:31 trazodone [TRAZODONE] AdvReac Severe FACE Verified 07/29/24 16:31 SWELLING, VOMITING PMFSH Past Medical History Medical History Hand abscess PTSD (post-traumatic stress disorder) IV drug user Depression Drug abuse Surgical History History of Social History Social History Household Members: None Housing: Homeless Do you presently have visiting nurse or other home services: Yes ([facility]) Alcohol intake: current Alcohol intake frequency: holidays/special occasions only Comment: pt sleeping Patient Tobacco Use Status: Current someday Tobacco user Tobacco use type: Cigarette Cigarette Packs Per Day: 1 Cigarettes Per Day: 10 Years Smoked: 16 e-Cigarette/Vaping Use: Never Used Second Hand Smoke Exposure: No Substance Use Type: Crack/Cocaine, Heroin, IV Drugs, Marijuana, Opiates and Other Advance Directives: No Advance Directives Information Provided: No Do you have a plan to hurt others: No Plan service: No Sexual orientation: Straight/Heterosexual Physical Exam ED Vital Signs: Vital Signs - 24 hr 07/29/24 16:28 Temperature 95.8 F L Pulse Rate 85 Respiratory Rate 20 Blood Pressure 157/101 H Pulse Oximetry 96 Oxygen Delivery Method Room Air BMI result Body Mass Index 38.8 Course Course Course Narrative: RME: 38-year-old female presents to ED for right hip pain going down right knee. Patient states also back pain radiating down right leg. Patient denies any urinary/bowel incontinence. Denies any recent trauma. Motor vascular neuro exam intact. X-rays ordered. Patient to be evaluated [facility]. Discharge Plan Discharge Clinical Impression: Acute hip pain, Acute leg pain Patient Disposition: Left W/O Completing Treatment Prescriptions: No Action clonidine HCl 0.1 mg Tablet 0.1 mg PO Q4H PRN (Reason: anxiety/insomnia/nighmares) 30 Days Qty: 90 1RF Protocol: Hold for SBP< HOLD for SBP < : 90 methadone [Methadose] 10 mg/mL Concentrate 75 mg PO DAILY Qty: 0 0RF Rx Instructions: Partial Fill upon patient request. quetiapine 50 mg Tablet 50 mg PO BEDTIME 30 Days Qty: 30 1RF sertraline 50 mg tablet 75 mg PO DAILY 30 Days Qty: 45 1RF Anbesol (benzocaine) Max Str 20 % Gel 1 appl mucous membrane QID PRN (Reason: toothache) 14 Days Qty: 9 0RF Protocol: Apply to: Apply to: tooth quetiapine 50 mg Tablet 50 mg PO Q6H PRN (Reason: mild anxiety/insomnia) 30 Days Qty: 60 1RF sulfamethoxazole-trimethoprim [Bactrim DS] 800-160 mg tablet 1 tab PO BID 5 Days Qty: 10 0RF omeprazole 20 mg capsule,delayed release(DR/EC) 20 mg PO BID 6 Days Qty: 12 0RF Rx Instructions: take with antibiotic Paxlovid 300 mg (150 mg x 2)-100 mg tablets,dose pack See Rx Instructions .ROUTE .COMPLEX Qty: 30 0RF Rx Instructions: take TWO 150 mg tablets of nirmatrelvir with ONE 100 mg tablet of ritonavir twice daily for 5 days ibuprofen 600 mg tablet 600 mg PO TID PRN (Reason: fever or pain) Qty: 20 0RF Discharge Date/Time: 07/29/24 20:26
== END 2024-07-29 20:26 | disposition left against medical advice (07) ==
PROVIDERS: Emergency Provider Internal Medicine
DX: M25.551 Pain in right hip (principal); M79.604 Pain in right leg; M54.50 Low back pain, unspecified
CPT/HCPCS: 72100; 73502; 73560; 99281